=== PATIENT | female | born 1935 | race Caucasian/White ===

== ENCOUNTER 2016-09-14 09:20 | Day surgery (SDC) | payer MEDICARE, BC ==
[~2016-09-14 09:20] MED LIST: Lactated Ringers 1,000 ML IV SCH; Lidocaine 2% 5 ML SDV ONE; Propofol 200 MG/20 ML SDV ONE
--- NOTE | 2016-09-14 10:05 | PCM.PREANE ---
Preanesthetic Assessment - Anesthesia/Transfusion/Family Hx Anesthesia History: Prior Anesthesia Without Reaction Family History of Anesthesia Reaction: No Transfusion History: Prior Transfusion Without Reaction - Review of Systems General: No Symptoms Pulmonary: No Symptoms Cardiovascular: No Symptoms Gastrointestinal: No symptoms Neurological: No Symptoms Other: Reports: None - Physical Assessment NPO Status Date: 09/13/16 O2 Sat by Pulse Oximetry: 96 Respiratory Rate: 16 Vital Signs: Last Vital Signs Temp 36.4 C 09/14/16 09:25 Pulse 98 09/14/16 09:25 Resp 16 09/14/16 09:25 BP 139/61 09/14/16 09:25 Pulse Ox 96 09/14/16 09:25 Height: 1.57 m Weight: 67.132 kg Mental Status: Alert & Oriented x3 Airway Class: Mallampati = 2 Dentition: Reports: Normal Dentition Lungs: Clear to auscultation, Normal respiratory effort Cardiovascular: Regular Rate, Regular Rhythm - Lab Values: Laboratory Last Values POC Glucose 181 mg/dL (60-110) H 09/14/16 09:57 - Allergies Allergies/Adverse Reactions: Allergies Allergy/AdvReac Type Severity Reaction Status Date / Time No Known Allergies Allergy Verified 09/10/16 07:38 - Blood Blood Available: No - Anesthesia Plan Pre-Op Medication Ordered: None - Acknowledgements Anesthesia Type Planned: MAC Pt an Appropriate Candidate for the Planned Anesthesia: Yes Alternatives and Risks of Anesthesia Discussed w Pt/Guardian: Yes Pt/Guardian Understands and Agrees with Anesthesia Plan: Yes Additional Comments: scope for mild anemia and heme + stools, has receding chin PreAnesthesia Questionnaire HEENT History: Reports: None Cardiovascular History: Reports: High Cholesterol, Hypertension Gastrointestinal History: Reports: None, Other (See Below) Other Gastrointestinal History: hx gastric ulcer Genitourinary History: Reports: None 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 CARE ASSISTANT History: Reports: , Spontaneous Endocrine/Metabolic History: Reports: Diabetes, Type II Hematologic History: Reports: Blood Transfusion(s) - Past Surgical History Head Surgeries/Procedures: Reports: None HEENT Surgical History: Reports: Cataract Surgery GI Surgical History: Reports: Cholecystectomy Female Surgical History: Reports: Hysterectomy - SUBSTANCE USE Smoking Status *Q: Former Smoker Tobacco Use Within Last Twelve Months: No Recreational Drug Use History: No - HOME MEDS Home Medications: Home Meds Ascorbic Acid [Vitamin C] 1,000 mg PO DAILY 09/10/16 [History] Aspirin [[place]lett Aspirin] 81 mg PO DAILY 09/10/16 [History] Cholecalciferol (Vitamin D3) [Vitamin D3] 1,000 units PO DAILY 09/10/16 [History ] Cyanocobalamin (Vitamin B12) [Vitamin B12] 500 mcg PO DAILY 09/10/16 [History] Losartan Potassium 25 mg PO DAILY 09/10/16 [History] atorvaSTATin Calcium [Atorvastatin Calcium] 20 mg PO DAILY 09/10/16 [History] metFORMIN HCl [Metformin HCl] 500 mg PO BEDTIME 09/10/16 [History] - CURRENT (IN HOUSE) MEDS Current Meds: Current Medications Lactated Ringer's (Ringers, Lactated) 1,000 mls @ 125 mls/hr IV ASDIRECTED [facility] Last Admin: 09/14/16 09:35 Dose: 125 mls/hr Discontinued Medications Lidocaine (Xylocaine-Mpf 2%) Confirm Administered Dose 5 ml .ROUTE .STK-MED ONE Stop: 09/14/16 08:45 Propofol (Diprivan 20 Ml) Confirm Administered Dose 400 mg .ROUTE .STK-MED ONE Stop: 09/14/16 08:45
[2016-09-14] MEDS ORDERED: Propofol 200 MG/20 ML SDV ONE (12:08)
--- NOTE | 2016-09-14 13:03 | PCM.OPNOTE ---
- General Post-Op/Procedure Note Date of Surgery/Procedure: 09/14/16 Operative Procedure(s): colonoscopy w bx Findings: colon mass at 40cm with ink tattoo; [id number] Pre Op Diagnosis: guaiac positive stool Post-Op Diagnosis: colon mass Anesthesia Technique: Moderate sedation Primary Surgeon: Elieser El Pathology: bx of cecum because of prominence; bx of apple core lesion at 40 cm Complications: None Condition: Good Free Text/Narrative:: Intake & Output 09/13/16 09/14/16 09/14/16 22:59 06:59 14:59 Intake Total 900 Balance 900
[2016-09-14 13:24] VITALS: BP 118/63
--- NOTE | 2016-09-14 13:44 | PCM.POSTAN ---
POST ANESTHESIA ASSESSMENT - MENTAL STATUS Mental Status: alert, oriented - RESPIRATORY Respiratory Status: respiratory rate WNL, airway patent, O2 saturation stable - CARDIOVASCULAR CV Status: pulse rate WNL, blood pressure stable - GASTROINTESTINAL GI Status: no symptoms - POST OP HYDRATION Hydration Status: adequate & stable
--- NOTE | 2016-09-14 13:44 | PCM48HPAN ---
Post Anesthesia Note - EVALUATION WITHIN 48HRS OF ANESTHETIC Vital Signs in Normal Range: Yes Patient Participated in Evaluation: Yes Respiratory Function Stable: Yes Airway Patent: Yes Cardiovascular Function Stable: Yes Hydration Status Stable: Yes Pain Control Satisfactory: Yes Nausea and Vomiting Control Satisfactory: Yes Mental Status Recovered: Yes
--- NOTE | 2016-09-14 19:28 | OR ---
SURGEON: Elieser El MD DATE OF PROCEDURE: 09/14/2016 PREOPERATIVE DIAGNOSIS: . POSTOPERATIVE DIAGNOSIS: Colon mass. PROCEDURE PERFORMED: Colonoscopy with biopsy. COMPLICATIONS: None. FINDINGS: 1. The patient is easily sedated with TOWN ADMINISTRATOR and Diprivan. The patient is soundly snoring. 2. The patient's colon is rather tortuous requiring maneuver in order to get to the cecum and the bowel prep is average with moderate amount of liquid stool. No semi-formed stool. At about 40 cm when the scope come out just distal to the splenic flexure, there was an apple-core lesion, semi circumference, and necrosis and with a pretty classic looking of colon, tumor, and biopsy done and sent for pathology. The patient also has mild diverticulosis on the left colon. No signs or symptoms of diverticulitis. No other mass, polyp, growth, AV malformation, or inflammation stricture observed and the cecum indicated by ileocecal fold, one-to-one indentation, light immittance, appendix orifice. Mucosa examined upon scope pulling out. The patient also has internal and external hemorrhoids. The area of the mass was tattooed and the patient tolerated the procedure well and we will discuss about the management of the colon mass when the patient returns to the office. DESCRIPTION OF PROCEDURE: The patient was taken to the endoscopy room. A time out was called, patient identified, and procedure identified. Diprivan was then administrated. Patient went from awake to sleep, hearing doctor talking or door closing is normal. Perineum inspection and digital examination were then performed. A well- lubricated colonoscope was gently inserted through the rectum, advanced past the rectosigmoid junction, the descending colon, splenic flexure, transverse colon, hepatic flexure, ascending colon, arrived to the cecum. Cecum was identified as dictated in the finding. Then the scope was carefully withdrawn while attention was paid to the mucosal surface for any abnormality. Air will be sucked out during the scope withdrawal. At the rectum, retroflexed to examine any rectal diseases, fistula or hemorrhoids. During mucosal examination, an apple core mass was noted and biopsy and tattoo performed. Patient tolerated procedure well. There were no intraoperative complications, and Dr. El was present throughout the whole procedure. ANDRZEJ / ANGEL /[id number] KENYA
== END 2016-09-14 13:13 | disposition home or self-care (01) ==
LOC: MW.SDS 09:20
PROVIDERS: ATTEND Surgery
PROC: 0DBM8ZX Excision of Descending Colon, Via Natural or Artificial Opening Endoscopic, Diagnostic (ICD-10-PCS; principal; 2016-09-14)
PROC: 3E0H8GC Introduction of Other Therapeutic Substance into Lower GI, Via Natural or Artificial Opening Endoscopic (ICD-10-PCS; 2016-09-14)
DX: C18.6 Malignant neoplasm of descending colon (principal); K64.4 Residual hemorrhoidal skin tags; D64.9 Anemia, unspecified; K64.8 Other hemorrhoids; K57.30 Diverticulosis of large intestine without perforation or abscess without bleeding; E11.9 Type 2 diabetes mellitus without complications
CPT/HCPCS: 36415; 45380; 45381; 82378; 82962; 88305; J7120; 00810; J2704

== ENCOUNTER 2016-11-07 10:22 | Inpatient (IN) | payer MEDICARE, BC ==
[2016-11-07] MEDS ORDERED: Sodium Chloride 0.9% 2.5 ML Syringe FLUSH PRN (11:37)
[2016-11-07] MEDS ORDERED: Sodium Chloride 0.9% 10 ML Syringe FLUSH PRN (11:37)
[2016-11-07] MEDS: Lactated Ringers 1,000 ML IV SCH ×2 (11:56→23:27)
--- NOTE | 2016-11-07 12:00 | PCM.PREANE ---
Preanesthetic Assessment - Anesthesia/Transfusion/Family Hx Anesthesia History: Prior Anesthesia Reaction (Pt states that she had a ORTIZ after her previous transfusions. No obvious reaction is noted.) Transfusion History: Prior Transfusion Reaction Type of Transfusion Reactions: Reports: Other (see below) Other Type of Transfusion Reaction: Headache - Review of Systems General: Fatigue Pulmonary: No Symptoms Cardiovascular: No Symptoms Gastrointestinal: No Symptoms Neurological: No Symptoms Other: Reports: None - Physical Assessment Pulse: 84 O2 Sat by Pulse Oximetry: 100 (Room Air) Respiratory Rate: 16 Blood Pressure: 141/65 Temperature: 97.3 F Height: 5 ft 2 in Weight: 64.5 kg ASA Class: 2 Mental Status: Alert & Oriented x3 Airway Class: Mallampati = 3 Dentition: Reports: Normal Dentition Thyro-Mental Finger Breadths: 2 Mouth Opening Finger Breadths: 2 ROM/Head Extension: Limited/Partial Lungs: Clear to Auscultation, Normal Respiratory Effort Cardiovascular: Regular Rate, Regular Rhythm - Imaging/EKG Impressions: 11/07/16 - SR, Left anterior fascicular block, Abnormal R-wave progression 11/07/16 - CXR - Pending 10/12/16 - Echo - LVEF - 55-60%, Normal LV Systolic Function, Possible small area of basal inferior wall hypokinesia 10/14/16 - Stress Test - Denied chest pain, SOA; sinustachycardia without evidence of ischemia. 10/20/16 - Myocardial Perfusion Study - At rest, no evidence of reversible perfusion is noted. 09/24/16 - CT of ABD - Annular mid transverse mass with extraluminal extension into the mesentary, no distant metastatic disease is noted, Osteopenia. - Allergies Allergies/Adverse Reactions: Allergies Allergy/AdvReac Type Severity Reaction Status Date / Time No Known Allergies Allergy Verified 09/10/16 07:38 - Blood Blood Available: Yes Product(s) Available: None - Anesthesia Plan Free Text/Narrative:: Pt is interviewed by herself. She is very active and fully neurologically intact. She has had a pretty aggressive cardiac work-up for this surgery which has been relatively unremarkable. I spoke with her regarding GETA and the possible risks and complications including but not limited to: resp. failure, CVA, WI, Mechanical ventilation, and . The patient voices understanding of the risks. After reviewing her labs it was noted that she was anemic with Hgb - 8.4, I called and spoke with Dr El and he wished the patient to be transfused with a goal Hgb of 10 pre-op. We will transfuse one unit of PRBC at this time and re-evaluate later this evening. I started a second PIV 18g to her Rt hand for blood transfusion. The patient understands and wishes to proceed with transfusion at this time. 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 History: Reports: , Spontaneous Musculoskeletal History: Reports: None Neurological History: Reports: None Psychiatric History: Reports: None Endocrine/Metabolic History: Reports: Diabetes, Type II (Pt states she checks here BG at home and it runs "150's" for her) Hematologic History: Reports: Blood Transfusion(s) Immunologic History: Reports: None Oncologic (Cancer) History: Reports: Colon Dermatologic History: Reports: None - Infectious Disease History Infectious Disease History: Reports: None - Past Surgical History Head Surgeries/Procedures: Reports: None HEENT Surgical History: Reports: Cataract Surgery Respiratory Surgical History: Reports: None GI Surgical History: Reports: Cholecystectomy Female Surgical History: Reports: Hysterectomy Neurological Surgical History: Reports: None Musculoskeletal Surgical History: Reports: None - SUBSTANCE USE Smoking Status *Q: Former Smoker Tobacco Use Within Last Twelve Months: No Second Hand Smoke Exposure: No Recreational Drug Use History: No - HOME MEDS Home Medications: Home Meds Ascorbic Acid [Vitamin C] 1,000 mg PO DAILY 09/10/16 [History] Cholecalciferol (Vitamin D3) [Vitamin D3] 1,000 units PO DAILY 09/10/16 [History ] Cyanocobalamin (Vitamin B12) [Vitamin B12] 500 mcg PO DAILY 09/10/16 [History] Losartan Potassium 25 mg PO DAILY 09/10/16 [History] atorvaSTATin Calcium [Atorvastatin Calcium] 20 mg PO DAILY 09/10/16 [History] metFORMIN HCl [Metformin HCl] 500 mg PO BEDTIME 09/10/16 [History] - CURRENT (IN HOUSE) MEDS Current Meds: Current Medications Lactated Ringer's (Ringers, Lactated) 1,000 mls @ 125 mls/hr IV ASDIRECTED [facility] Cefoxitin Sodium 2 gm/ Premix 50 mls @ 100 mls/hr IV ONETIME ONE Stop: 11/08/16 05:29 Sodium Chloride (Saline Flush) 10 ml FLUSH ASDIRECTED PRN PRN Reason: Keep Vein Open Sodium Chloride (Saline Flush) 2.5 ml FLUSH ASDIRECTED PRN PRN Reason: Keep Vein Open
[2016-11-07 12:23] LABS: CHLORIDE,CL 106 mmol/L (98-110); SODIUM,NA 142 mmol/L (136-146)
[2016-11-07] MEDS ORDERED: Erythromycin Ethylsuccinate Susp 200 MG/5 ML 100 ML Bottle PO ONE ×3 (12:29→20:00)
[2016-11-07] MEDS ORDERED: Lidocaine 2% 5 ML SDV ONE (12:31)
[2016-11-07] MEDS ORDERED: Polyethylene Glycol/Electrolytes 4,000 ML Bottle PO ONE (12:31)
[2016-11-08] MEDS ORDERED: cefOXitin 2 GM in Premix Bag 1 BAG IV ONE (05:00)
[2016-11-08 06:44] LABS: CHLORIDE,CL 107 mmol/L (98-110); SODIUM,NA 142 mmol/L (136-146)
[2016-11-08] MEDS ORDERED: Lidocaine 2% 5 ML SDV ONE (07:18)
[2016-11-08] MEDS ORDERED: Midazolam 1 MG/ML 2 ML SDV ONE (07:18)
[2016-11-08] MEDS ORDERED: Rocuronium 10 MG/ML 10 ML Syringe ONE (07:18)
[2016-11-08] MEDS ORDERED: Propofol 200 MG/20 ML SDV ONE (07:18)
[2016-11-08] MEDS ORDERED: fentaNYL 100 MCG/2 ML SDV ONE ×2 (07:18→10:50)
[2016-11-08] MEDS ORDERED: Ondansetron 4 MG/2 ML SDV ONE (07:18)
[2016-11-08] MEDS ORDERED: Phenylephrine 1% 10 MG/ML SDV ONE (07:19)
[2016-11-08] MEDS ORDERED: HYDROmorphone 2 MG/ML Syringe ONE (07:19)
[2016-11-08] MEDS ORDERED: Bupivacaine 0.5% 30 ML SDV ONE (07:39)
[2016-11-08] MEDS ORDERED: Bupivacaine 0.5% 10 ML SDV ONE (07:40)
[2016-11-08] MEDS ORDERED: ceFAZolin 1 GM Vial ONE (09:31)
[2016-11-08] MEDS ORDERED: Morphine PF 10 MG/10 ML SDV ONE (09:55)
[2016-11-08] MEDS ORDERED: Neostigmine Methylsulfate 1 MG/ML 5 ML Syringe ONE (10:33)
[2016-11-08] MEDS ORDERED: Morphine PF 30 MG/30 ML PCA Vial IV PRN (11:39)
[2016-11-08] MEDS ORDERED: cefOXitin 1 GM in Premix Bag 1 BAG IV SCH (11:45)
[2016-11-08] MEDS: fentaNYL 100 MCG/2 ML SDV IVPUSH PRN ×2 (11:54→12:20)
--- NOTE | 2016-11-08 11:54 | PCM.OPNOTE ---
- General Post-Op/Procedure Note Date of Surgery/Procedure: 11/08/16 Operative Procedure(s): extended r hemicolectomy, peritoneal biopsy, yelitza Findings: extensive adherence from prior surgery, and some portion of ileum is as big as colon suggested a chronic situation; peritoneal deposit bx, frosen session, mets ca; distal margin is 6 cm before amputation; and cancer is gross seen on serosal surface, but no gross perforation; [id number] Pre Op Diagnosis: colon ca Post-Op Diagnosis: Same Anesthesia Technique: General ET Tube Primary Surgeon: Elieser El Pharmacy Operations Coordinator: Anson Mirza Pathology: sent Complications: None Condition: Good Free Text/Narrative:: Intake & Output 11/07/16 11/08/16 11/08/16 22:59 06:59 14:59 Intake Total 3363 3300 304 Output Total 1350 500 Balance 2012 2800 304
--- NOTE | 2016-11-08 12:01 | PCM.POSTAN ---
POST ANESTHESIA ASSESSMENT - MENTAL STATUS Mental Status: Alert, Oriented - RESPIRATORY Respiratory Status: Respiratory Rate WNL, Airway Patent, O2 Saturation Stable, Supplemental Oxygen - CARDIOVASCULAR CV Status: Pulse Rate WNL, Blood Pressure Stable - GASTROINTESTINAL GI Status: No Symptoms - PAIN Pain Score: 3 ("sore"; receiving fentanyl now) - POST OP HYDRATION Hydration Status: Adequate & Stable - OBSERVATIONS Free Text/Narrative:: Pt awake and appropriate. Minimal pain and no nausea at this time. VSS.
--- NOTE | 2016-11-08 13:10 | CR ---
EXAM DATE: 11/07/16 PATIENT'S AGE: 81 Patient: MEGHANN MOORE Facility: [place], [place] Site . Site : [id number] Study: XRay Chest [id number]/13/2017 12:21:06 PM Ordering Physician: Sienna Mon Final Report: INDICATION: Pre-operative Assessment TECHNIQUE: Chest 1 view. COMPARISON: None FINDINGS: Cardiovascular and mediastinum: Heart size and vasculature are normal in caliber and appearance. Mediastinum is within normal limits. Lungs and pleural space: Lungs are clear. No sign of infiltrate or mass. No sign of pleural effusion. No pneumothorax. Bones and soft tissues: No significant findings. IMPRESSION: Unremarkable chest. Dictated by: Anirudh Weldon MD @ 11/07/2016 12:39:39 (Electronic Signature) Report Signed by Proxy. GUTH[facility] MEDICAL CENTERCheryl
[2016-11-08] MEDS: Lactated Ringers 1,000 ML IV SCH ×3 (13:41→22:35)
[2016-11-08] MEDS: cefOXitin 1 GM in Premix Bag 1 BAG IV SCH ×2 (13:48→19:20)
[2016-11-08] MEDS: Ondansetron 4 MG/2 ML SDV IVPUSH PRN (17:06)
[2016-11-09] MEDS: cefOXitin 1 GM in Premix Bag 1 BAG IV SCH ×4 (00:44→19:49)
[2016-11-09 05:14] LABS: CHLORIDE,CL 98 mmol/L (98-110); SODIUM,NA 134 mmol/L (136-146)
[2016-11-09] MEDS: Ondansetron 4 MG/2 ML SDV IVPUSH PRN (05:41)
[2016-11-09] MEDS: Lactated Ringers 1,000 ML IV SCH ×2 (06:30→15:19)
--- NOTE | 2016-11-09 07:52 | PCM48HPAN ---
Post Anesthesia Note - EVALUATION WITHIN 48HRS OF ANESTHETIC Vital Signs in Normal Range: Yes Patient Participated in Evaluation: Yes Respiratory Function Stable: Yes Airway Patent: Yes Cardiovascular Function Stable: Yes Hydration Status Stable: Yes Pain Control Satisfactory: Yes Nausea and Vomiting Control Satisfactory: Yes Mental Status Recovered: Yes - COMMENTS/OBSERVATIONS Free Text/Narrative:: Pt awake and alert this AM. States that she slept well last night. She does state that she still has moderate pain and is using her BOTTLER. VSS. No apparent anesthesia complications.
[2016-11-09] MEDS: Pantoprazole 40 MG in Sodium Chloride 0.9% 10 ML IVPUSH SCH (09:32)
--- NOTE | 2016-11-09 11:27 | OR ---
SURGEON: Elieser El MD DATE OF PROCEDURE: 11/08/2016 JUNIOR ENGINEER: Dr. Mirza. PREOPERATIVE DIAGNOSIS: Colon cancer. POSTOPERATIVE DIAGNOSIS: Colon cancer. PROCEDURE PERFORMED: 1. Extended right hemicolectomy. 2. Lysis of adhesions. 3. Peritoneal biopsy. FINDINGS: 1. Very extensive adherence from prior surgery. The small bowel was attached to the cancer, attached to the peritoneum, and attached to the pelvis. Required tremendous amount of effort to take down adherence, and there was no enterotomy during the takedown of adhesions. 2. Some portion of the ileum was as big as the colon, suggesting this has been a chronic situation. 3. Peritoneal biopsy was positive for metastatic cancer. 4. The patient required 2 units of transfusion before surgery, as the patient's H and H was down to 8 upon admission. SPECIMENS: Gross in the operating room and distal margin before amputation was noted to be 6 cm and cancer grossly seen on serosal surface, but no gross perforation. PROCEDURE IN DETAIL: The patient was taken to the operating room and placed in a supine position. Upon induction of general endotracheal anesthesia, the patient's abdomen was prepped and draped in a sterile fashion. Prior to surgery, the patient was noted to be anemic to 8 and getting 2 units blood transfusion prior to surgery. A time-out was then called. The patient identified, procedure identified, and antibiotic identified, procedure then started. After assessment of appropriate landmarks, a midline incision from epigastrium beveled to the left of the umbilicus down to the upper pelvis was made, and this was carefully taken down and the peritoneal cavity was entered in a standard fashion. Upon gaining entrance into the peritoneal cavity, it was noted the patient had severe adherence from prior surgery. Small bowel was making a U-turn, adhesing itself like a bouquet of andrews and adhered to the peritoneal cavity, adhered to the cancer, and adhered to the pelvis, so I decided to take down the adherence before anything could be performed. The cancer was noted and was tattooed, and the cancer was noted to be involved with the serosal surface, although no gross perforation was observed, and a small peritoneal deposit about a size of 1 mm was biopsied and noted to have metastatic cancer. After taking down adherence, which took an hour from the surgery, the ascending colon was mobilized from the white line of Toldt, and then at the terminal ileum, the appendix was not noticed, probably has been gone. The terminal ileum 6 cm was amputated from the ileocecal valve. In the distal margin, the cancer was felt and also was tattooed and measured 6 cm from the cancer and the tattoo grossly measured was amputated over there, and then the mesentery was amputated by the use of Harmonic, and big vessels encountered were amputated and tied off with two times of 0 silk. It was decided to do a [id number] anastomosis with functional end- to-end using RANDY-75 and TA-50. Upon finishing, I was using 0 silk to give the anastomosis a secondary closure, and after repair of the mesenteric hole, the anastomosis was also buttressed with another mesentery. Upon finishing, I felt the general donut with 2 fingers, and there were also Crutch stitches in the anastomosis. All the bowel laid back to the peritoneal cavity and followed with 2 L of warm irrigation, and then the abdomen was closed with double-stranded #1 PDS and with skin dontae to approximate the skin and followed by appropriate dressing. The patient was then awakened, extubated, and transferred to recovery in a hemodynamically stable condition. The patient tolerated the procedure well. There were no intraoperative complications. Dr. Mirza was present for the whole procedure. During the exploration, the liver was palpated and was grossly normal. An NG tube was in the good position. As always, thank you for the kind referral. ANDRZEJ / ANGEL /[id number]
[2016-11-09] MEDS: Morphine PF 30 MG/30 ML PCA Vial IV PRN (12:38)
--- NOTE | 2016-11-09 14:26 | PCM.SURGPN ---
- General Info Date of Service: 11/09/16 POD#: 1 Post-Op Diagnosis: colon ca w mets Functional Status: Reports: Pain Controlled - Review of Systems General: Reports: No Symptoms Pulmonary: Reports: No Symptoms Cardiovascular: Reports: No Symptoms Gastrointestinal: Reports: No Symptoms (no flatus) - Patient Data Vitals - Most Recent: Last Vital Signs Temp 99 F 11/09/16 08:00 Pulse 90 11/08/16 12:35 Resp 12 11/09/16 13:00 BP 126/53 L 11/09/16 13:00 Pulse Ox 92 L 11/09/16 13:00 Weight - Most Recent: 144 lb 9.972 oz I&O - Last 24 Hours: Intake & Output 11/08/16 11/09/16 11/09/16 22:59 06:59 14:59 Intake Total 1050 1050 50 Output Total 1500 1150 Balance -450 -100 50 Lab Results Last 24 Hrs: Laboratory Results - last 24 hr 11/09/16 11/09/16 Range/Units 04:32 04:32 WBC 14.40 H (4.0-11.0) K/uL RBC 4.79 (4.30-5.90) M/uL Hgb 10.2 L (12.0-16.0) g/dL Hct 33.7 L (36.0-46.0) % MCV 70.4 L (80.0-98.0) fL MCH 21.3 L (27.0-32.0) pg MCHC 30.3 L (31.0-37.0) g/dL RDW Std Deviation 48.9 (28.0-62.0) fl RDW Coeff of Tiara 19 H (11.0-15.0) % Plt Count 282 (150-400) K/uL MPV 9.00 (7.40-12.00) fL Neut % (Auto) 79.8 (48.0-80.0) % Lymph % (Auto) 13.1 L (16.0-40.0) % [place] % (Auto) 7.0 (0.0-15.0) % Eos % (Auto) 0.0 (0.0-7.0) % Baso % (Auto) 0.1 (0.0-1.5) % Neut # (Auto) 11.5 H (1.4-5.7) K/uL Lymph # (Auto) 1.9 (0.6-2.4) K/uL [place] # (Auto) 1.0 H (0.0-0.8) K/uL Eos # (Auto) 0.0 (0.0-0.7) K/uL Baso # (Auto) 0.0 (0.0-0.1) K/uL Nucleated RBC % 0.0 /100WBC Nucleated RBCs # 0 K/uL Sodium 134 L (136-146) mmol/L Potassium 3.7 (3.5-5.1) mmol/L Chloride 98 (98-110) mmol/L Carbon Dioxide 25 (21-31) mmol/L BUN 6 (6.0-23.0) mg/dL Creatinine 0.7 (0.6-1.5) mg/dL Est Cr Clr Drug Dosing 47.74 mL/min Estimated GFR (MDRD) > 60.0 ml/min Glucose 213 H (60-110) mg/dL Calcium 8.3 L (8.8-10.8) mg/dL Total Bilirubin 1.0 (0.1-1.5) mg/dL AST 26 (5-40) IU/L ALT 28 (8-54) IU/L Alkaline Phosphatase 59 (40-150) Total Protein 6.0 (6.0-8.0) g/dL Albumin 3.4 (3.4-4.8) g/dL Globulin 2.6 (2.0-3.5) g/dL Albumin/Globulin Ratio 1.3 (1.3-2.8) Med Orders - Current: Current Medications Fentanyl (Sublimaze) 50 mcg IVPUSH .Q5MIN PRN PRN Reason: Pain Stop: 11/12/16 09:14 Last Admin: 11/08/16 12:20 Dose: 50 mcg Lactated Ringer's (Ringers, Lactated) 1,000 mls @ 125 mls/hr IV ASDIRECTED [facility] Last Admin: 11/09/16 06:30 Dose: 125 mls/hr Pantoprazole Sodium 40 mg/ (Sodium Chloride) 10 mls @ 300 mls/hr IVPUSH DAILY [facility] Last Admin: 11/09/16 09:32 Dose: 300 mls/hr Cefoxitin Sodium 1 gm/ Premix 50 mls @ 100 mls/hr IV Q6H [facility] Last Admin: 11/09/16 12:27 Dose: 100 mls/hr Morphine Sulfate (Morphine Services Delivery Driver 30 Mg In 30 Ml) 0 mg IV ASDIRECTED PRN; Protocol PRN Reason: Pain (severe 7-10) Last Admin: 11/09/16 12:38 Dose: 30 mg Ondansetron HCl (Zofran) 4 mg IVPUSH Q8H PRN PRN Reason: Nausea/Vomiting Last Admin: 11/09/16 05:41 Dose: 4 mg Sodium Chloride (Saline Flush) 10 ml FLUSH ASDIRECTED PRN PRN Reason: Keep Vein Open Sodium Chloride (Saline Flush) 2.5 ml FLUSH ASDIRECTED PRN PRN Reason: Keep Vein Open Discontinued Medications Bupivacaine HCl (Marcaine 0.5%) Confirm Administered Dose 90 ml .ROUTE .STK-MED ONE Stop: 11/08/16 07:40 Bupivacaine HCl (Sensorcaine-Mpf 0.5%) Confirm Administered Dose 20 ml .ROUTE .STK-MED ONE Stop: 11/08/16 07:41 Cefazolin Sodium (Ancef) Confirm Administered Dose 1 gm .ROUTE .STK-MED ONE Stop: 11/08/16 09:32 Erythromycin Ethylsuccinate (Eryped 200) 1,000 mg PO ONETIME ONE Stop: 11/07/16 12:30 Last Admin: 11/07/16 13:11 Dose: 25 ml Erythromycin Ethylsuccinate (Eryped 200) 1,000 mg PO ONETIME ONE Stop: 11/07/16 16:01 Last Admin: 11/07/16 16:22 Dose: 25 ml Erythromycin Ethylsuccinate (Eryped 200) 1,000 mg PO ONETIME ONE Stop: 11/07/16 20:01 Last Admin: 11/07/16 20:05 Dose: 1,000 mg Fentanyl (Sublimaze) Confirm Administered Dose 100 mcg .ROUTE .STK-MED ONE Stop: 11/08/16 07:19 Fentanyl (Sublimaze) Confirm Administered Dose 100 mcg .ROUTE .STK-MED ONE Stop: 11/08/16 10:51 Glycopyrrolate () Confirm Administered Dose 1 mg .ROUTE .STK-MED ONE Stop: 11/08/16 10:34 Hydromorphone HCl (Dilaudid) Confirm Administered Dose 2 mg .ROUTE .STK-MED ONE Stop: 11/08/16 07:20 Lactated Ringer's (Ringers, Lactated) 1,000 mls @ 125 mls/hr IV ASDIRECTED [facility] Last Infusion: 11/08/16 07:27 Dose: Infused Cefoxitin Sodium 2 gm/ Premix 50 mls @ 100 mls/hr IV ONETIME ONE Stop: 11/08/16 05:29 Last Admin: 11/08/16 06:28 Dose: 100 mls/hr Cefoxitin Sodium 1 gm/ Premix 50 mls @ 100 mls/hr IV Q6H [facility] Last Admin: 11/08/16 14:11 Dose: Not Given Lidocaine (Xylocaine-Mpf 2%) Confirm Administered Dose 5 ml .ROUTE .STK-MED ONE Stop: 11/07/16 12:32 Last Admin: 11/07/16 14:47 Dose: Not Given Lidocaine (Xylocaine-Mpf 2%) Confirm Administered Dose 5 ml .ROUTE .STK-MED ONE Stop: 11/08/16 07:19 Midazolam HCl (Versed 1 Mg/Ml) Confirm Administered Dose 2 mg .ROUTE .STK-MED ONE Stop: 11/08/16 07:19 Morphine Sulfate (Duramorph Pf) Confirm Administered Dose 10 mg .ROUTE .STK-MED ONE Stop: 11/08/16 09:56 Morphine Sulfate (Morphine Services Delivery Driver 30 Mg In 30 Ml) 0 mg IV ASDIRECTED PRN; Protocol PRN Reason: Pain (severe 7-10) Last Admin: 11/08/16 12:16 Dose: 30 mg Neomycin Sulfate (Neomycin Sulfate) 1,000 mg PO ONETIME ONE Stop: 11/07/16 12:31 Last Admin: 11/07/16 13:11 Dose: 1,000 mg Neomycin Sulfate (Neomycin Sulfate) 1,000 mg PO ONETIME ONE Stop: 11/07/16 16:01 Last Admin: 11/07/16 16:22 Dose: 1,000 mg Neomycin Sulfate (Neomycin Sulfate) 1,000 mg PO ONETIME ONE Stop: 11/07/16 20:01 Last Admin: 11/07/16 20:03 Dose: 1,000 mg Neostigmine Methylsulfate (Neostigmine) Confirm Administered Dose 5 mg .ROUTE .STK-MED ONE Stop: 11/08/16 10:34 Ondansetron HCl (Zofran) Confirm Administered Dose 4 mg .ROUTE .STK-MED ONE Stop: 11/08/16 07:19 Phenylephrine HCl (Aman-Synephrine) Confirm Administered Dose 10 mg .ROUTE .STK- MED ONE Stop: 11/08/16 07:20 Polyethylene Glycol/Electrolytes (Golytely) 4,000 ml PO ONETIME ONE Stop: 11/07/16 12:32 Last Admin: 11/07/16 13:12 Dose: 4,000 ml Propofol (Diprivan 20 Ml) Confirm Administered Dose 200 mg .ROUTE .STK-MED ONE Stop: 11/08/16 07:19 Rocuronium [place] (Zemuron) Confirm Administered Dose 100 mg .ROUTE .STK-MED ONE Stop: 11/08/16 07:19 - Exam Wound/Incisions: Dressing Dry and Intact General: Alert, Oriented Neck: Supple Cardiovascular: Regular Rate GI/Abdominal Exam: Soft (wound cdi) - Problem List Review Problem List Initiated/Reviewed/Updated: Yes - My Orders Last 24 Hours: Active Orders 24 hr Category Date Time Status Communication Order [RC] ROUTINE Care 11/08/16 19:05 Active Morphine PF [Morphine INTERNATIONAL EDITORIAL PRODUCER 30 MG in 30 ML] Med 11/08/16 19:01 Active See Protocol IV ASDIRECTED PRN Pantoprazole [ProTONIX IV] 40 mg Med 11/09/16 09:00 Active Sodium Chloride 0.9% [Normal Saline] 10 ml IVPUSH DAILY Medication Orders Fentanyl (Sublimaze) 50 mcg IVPUSH .Q5MIN PRN PRN Reason: Pain Stop: 11/12/16 09:14 Last Admin: 11/08/16 12:20 Dose: 50 mcg Admin: 11/08/16 11:54 Dose: 50 mcg Lactated Ringer's (Ringers, Lactated) 1,000 mls @ 125 mls/hr IV ASDIRECTED [facility] Last Admin: 11/09/16 06:30 Dose: 125 mls/hr Infusion: 11/09/16 06:30 Dose: 125 mls/hr Admin: 11/08/16 22:35 Dose: 125 mls/hr Infusion: 11/08/16 21:50 Dose: 125 mls/hr Admin: 11/08/16 13:50 Dose: 125 mls/hr Pantoprazole Sodium 40 mg/ (Sodium Chloride) 10 mls @ 300 mls/hr IVPUSH DAILY [facility] Last Admin: 11/09/16 09:32 Dose: 300 mls/hr Cefoxitin Sodium 1 gm/ Premix 50 mls @ 100 mls/hr IV Q6H [facility] Last Admin: 11/09/16 12:27 Dose: 100 mls/hr Infusion: 11/09/16 07:00 Dose: 100 mls/hr Admin: 11/09/16 06:30 Dose: 100 mls/hr Infusion: 11/09/16 01:14 Dose: 100 mls/hr Admin: 11/09/16 00:44 Dose: 100 mls/hr Infusion: 11/08/16 19:50 Dose: 100 mls/hr Admin: 11/08/16 19:20 Dose: 100 mls/hr Infusion: 11/08/16 14:18 Dose: 100 mls/hr Admin: 11/08/16 13:48 Dose: 100 mls/hr Morphine Sulfate (Morphine Services Delivery Driver 30 Mg In 30 Ml) 0 mg IV ASDIRECTED PRN; Protocol PRN Reason: Pain (severe 7-10) Last Admin: 11/09/16 12:38 Dose: 30 mg Ondansetron HCl (Zofran) 4 mg IVPUSH Q8H PRN PRN Reason: Nausea/Vomiting Last Admin: 11/09/16 05:41 Dose: 4 mg Admin: 11/08/16 17:06 Dose: 4 mg Sodium Chloride (Saline Flush) 10 ml FLUSH ASDIRECTED PRN PRN Reason: Keep Vein Open Sodium Chloride (Saline Flush) 2.5 ml FLUSH ASDIRECTED PRN PRN Reason: Keep Vein Open - Assessment Assessment (Free Text/Narrative):: pod#1 from extended r hemicolectomy for colon ca w mets; pain is in good control , urine output 2+L in 1st day; sit up in chair; asked a lot of important qs; denid n/v; avss, ngt 300cc; dc snow, encourage ambulation; transfer to floor; decrease ivf to 100/hr, decrease metal off bearer dose; lovenox may be tomorrow, severe bleeding risk; path report pending; await path report - Plan Plan (Free Text/Narrative):: pod#1 from extended r hemicolectomy for colon ca w mets; pain is in good control , urine output 2+L in 1st day; sit up in chair; asked a lot of important qs; denid n/v; avss, ngt 300cc; dc snow, encourage ambulation; transfer to floor; decrease ivf to 100/hr, decrease metal off bearer dose; lovenox may be tomorrow, severe bleeding risk; path report pending; await path report
[2016-11-10] MEDS: Lactated Ringers 1,000 ML IV SCH ×2 (01:22→13:11)
[2016-11-10] MEDS: cefOXitin 1 GM in Premix Bag 1 BAG IV SCH ×4 (01:23→18:29)
[2016-11-10 05:19] LABS: CHLORIDE,CL 100 mmol/L (98-110); SODIUM,NA 135 mmol/L (136-146)
[2016-11-10] MEDS: Pantoprazole 40 MG in Sodium Chloride 0.9% 10 ML IVPUSH SCH (08:07)
--- NOTE | 2016-11-10 16:40 | PCM.SURGPN ---
- General Info Date of Service: 11/10/16 POD#: 2 Post-Op Diagnosis: colon ca Functional Status: Reports: Pain Controlled - Review of Systems General: Reports: No Symptoms Pulmonary: Reports: No Symptoms Cardiovascular: Reports: No Symptoms (no flatus, snow out, void; ngt out, chewing gums) - Patient Data Vitals - Most Recent: Last Vital Signs Temp 99.2 F 11/10/16 15:46 Pulse 87 11/10/16 15:46 Resp 20 11/10/16 15:46 BP 153/65 H 11/10/16 15:46 Pulse Ox 91 L 11/10/16 15:46 Weight - Most Recent: 143 lb 4.807 oz I&O - Last 24 Hours: Intake & Output 11/10/16 11/10/16 11/10/16 06:59 14:59 22:59 Intake Total 1050 Output Total 1610 800 Balance -560 -800 Lab Results Last 24 Hrs: Laboratory Results - last 24 hr 11/10/16 11/10/16 Range/Units 04:40 04:40 WBC 11.72 H (4.0-11.0) K/uL RBC 4.46 (4.30-5.90) M/uL Hgb 9.6 L (12.0-16.0) g/dL Hct 31.6 L (36.0-46.0) % MCV 70.9 L (80.0-98.0) fL MCH 21.5 L (27.0-32.0) pg MCHC 30.4 L (31.0-37.0) g/dL RDW Std Deviation 50.3 (28.0-62.0) fl RDW Coeff of Tiara 20 H (11.0-15.0) % Plt Count 288 (150-400) K/uL MPV 9.30 (7.40-12.00) fL Neut % (Auto) 78.6 (48.0-80.0) % Lymph % (Auto) 13.9 L (16.0-40.0) % [place] % (Auto) 7.4 (0.0-15.0) % Eos % (Auto) 0.0 (0.0-7.0) % Baso % (Auto) 0.1 (0.0-1.5) % Neut # (Auto) 9.2 H (1.4-5.7) K/uL Lymph # (Auto) 1.6 (0.6-2.4) K/uL [place] # (Auto) 0.9 H (0.0-0.8) K/uL Eos # (Auto) 0.0 (0.0-0.7) K/uL Baso # (Auto) 0.0 (0.0-0.1) K/uL Sodium 135 L (136-146) mmol/L Potassium 3.6 (3.5-5.1) mmol/L Chloride 100 (98-110) mmol/L Carbon Dioxide 28 (21-31) mmol/L BUN 7 (6.0-23.0) mg/dL Creatinine 0.6 (0.6-1.5) mg/dL Est Cr Clr Drug Dosing 55.70 mL/min Estimated GFR (MDRD) > 60.0 ml/min Glucose 176 H (60-110) mg/dL Calcium 8.4 L (8.8-10.8) mg/dL Med Orders - Current: Current Medications Fentanyl (Sublimaze) 50 mcg IVPUSH .Q5MIN PRN PRN Reason: Pain Stop: 11/12/16 09:14 Last Admin: 11/08/16 12:20 Dose: 50 mcg Pantoprazole Sodium 40 mg/ (Sodium Chloride) 10 mls @ 300 mls/hr IVPUSH DAILY [facility] Last Admin: 11/10/16 08:07 Dose: 300 mls/hr Cefoxitin Sodium 1 gm/ Premix 50 mls @ 100 mls/hr IV Q6H [facility] Last Admin: 11/10/16 13:05 Dose: 100 mls/hr Lactated Ringer's (Ringers, Lactated) 1,000 mls @ 75 mls/hr IV ASDIRECTED [facility] Last Admin: 11/10/16 13:11 Dose: 75 mls/hr Morphine Sulfate (Morphine Data Integration Architect 30 Mg In 30 Ml) 0 mg IV ASDIRECTED PRN; Protocol PRN Reason: Pain (severe 7-10) Last Admin: 11/09/16 12:38 Dose: 30 mg Ondansetron HCl (Zofran) 4 mg IVPUSH Q8H PRN PRN Reason: Nausea/Vomiting Last Admin: 11/09/16 05:41 Dose: 4 mg Sodium Chloride (Saline Flush) 10 ml FLUSH ASDIRECTED PRN PRN Reason: Keep Vein Open Sodium Chloride (Saline Flush) 2.5 ml FLUSH ASDIRECTED PRN PRN Reason: Keep Vein Open Discontinued Medications Bupivacaine HCl (Marcaine 0.5%) Confirm Administered Dose 90 ml .ROUTE .STK-MED ONE Stop: 11/08/16 07:40 Bupivacaine HCl (Sensorcaine-Mpf 0.5%) Confirm Administered Dose 20 ml .ROUTE .STK-MED ONE Stop: 11/08/16 07:41 Cefazolin Sodium (Ancef) Confirm Administered Dose 1 gm .ROUTE .STK-MED ONE Stop: 11/08/16 09:32 Erythromycin Ethylsuccinate (Eryped 200) 1,000 mg PO ONETIME ONE Stop: 11/07/16 12:30 Last Admin: 11/07/16 13:11 Dose: 25 ml Erythromycin Ethylsuccinate (Eryped 200) 1,000 mg PO ONETIME ONE Stop: 11/07/16 16:01 Last Admin: 11/07/16 16:22 Dose: 25 ml Erythromycin Ethylsuccinate (Eryped 200) 1,000 mg PO ONETIME ONE Stop: 11/07/16 20:01 Last Admin: 11/07/16 20:05 Dose: 1,000 mg Fentanyl (Sublimaze) Confirm Administered Dose 100 mcg .ROUTE .STK-MED ONE Stop: 11/08/16 07:19 Fentanyl (Sublimaze) Confirm Administered Dose 100 mcg .ROUTE .STK-MED ONE Stop: 11/08/16 10:51 Glycopyrrolate () Confirm Administered Dose 1 mg .ROUTE .STK-MED ONE Stop: 11/08/16 10:34 Hydromorphone HCl (Dilaudid) Confirm Administered Dose 2 mg .ROUTE .STK-MED ONE Stop: 11/08/16 07:20 Lactated Ringer's (Ringers, Lactated) 1,000 mls @ 125 mls/hr IV ASDIRECTED [facility] Last Infusion: 11/08/16 07:27 Dose: Infused Cefoxitin Sodium 2 gm/ Premix 50 mls @ 100 mls/hr IV ONETIME ONE Stop: 11/08/16 05:29 Last Admin: 11/08/16 06:28 Dose: 100 mls/hr Lactated Ringer's (Ringers, Lactated) 1,000 mls @ 100 mls/hr IV ASDIRECTED [facility] Last Admin: 11/10/16 01:22 Dose: 100 mls/hr Cefoxitin Sodium 1 gm/ Premix 50 mls @ 100 mls/hr IV Q6H [facility] Last Admin: 11/08/16 14:11 Dose: Not Given Lidocaine (Xylocaine-Mpf 2%) Confirm Administered Dose 5 ml .ROUTE .STK-MED ONE Stop: 11/07/16 12:32 Last Admin: 11/07/16 14:47 Dose: Not Given Lidocaine (Xylocaine-Mpf 2%) Confirm Administered Dose 5 ml .ROUTE .STK-MED ONE Stop: 11/08/16 07:19 Midazolam HCl (Versed 1 Mg/Ml) Confirm Administered Dose 2 mg .ROUTE .STK-MED ONE Stop: 11/08/16 07:19 Morphine Sulfate (Duramorph Pf) Confirm Administered Dose 10 mg .ROUTE .STK-MED ONE Stop: 11/08/16 09:56 Morphine Sulfate (Morphine Data Integration Architect 30 Mg In 30 Ml) 0 mg IV ASDIRECTED PRN; Protocol PRN Reason: Pain (severe 7-10) Last Admin: 11/08/16 12:16 Dose: 30 mg Neomycin Sulfate (Neomycin Sulfate) 1,000 mg PO ONETIME ONE Stop: 11/07/16 12:31 Last Admin: 11/07/16 13:11 Dose: 1,000 mg Neomycin Sulfate (Neomycin Sulfate) 1,000 mg PO ONETIME ONE Stop: 11/07/16 16:01 Last Admin: 11/07/16 16:22 Dose: 1,000 mg Neomycin Sulfate (Neomycin Sulfate) 1,000 mg PO ONETIME ONE Stop: 11/07/16 20:01 Last Admin: 11/07/16 20:03 Dose: 1,000 mg Neostigmine Methylsulfate (Neostigmine) Confirm Administered Dose 5 mg .ROUTE .STK-MED ONE Stop: 11/08/16 10:34 Ondansetron HCl (Zofran) Confirm Administered Dose 4 mg .ROUTE .STK-MED ONE Stop: 11/08/16 07:19 Phenylephrine HCl (Aman-Synephrine) Confirm Administered Dose 10 mg .ROUTE .STK- MED ONE Stop: 11/08/16 07:20 Polyethylene Glycol/Electrolytes (Golytely) 4,000 ml PO ONETIME ONE Stop: 11/07/16 12:32 Last Admin: 11/07/16 13:12 Dose: 4,000 ml Propofol (Diprivan 20 Ml) Confirm Administered Dose 200 mg .ROUTE .STK-MED ONE Stop: 11/08/16 07:19 Rocuronium [place] (Zemuron) Confirm Administered Dose 100 mg .ROUTE .STK-MED ONE Stop: 11/08/16 07:19 - Exam Wound/Incisions: Dressing Dry and Intact (wound drsg cdi; abd soft) - Problem List Review Problem List Initiated/Reviewed/Updated: Yes - My Orders Last 24 Hours: Active Orders 24 hr Category Date Time Status Communication Order [RC] DAILY Care 11/10/16 09:00 Active Lactated Ringers [Ringers, Lactated] 1,000 ml Med 11/10/16 10:25 Active IV ASDIRECTED Nasogastric Orogastric Tube Removal [OM.PC] Routine Oth 11/10/16 09:00 Ordered Medication Orders Fentanyl (Sublimaze) 50 mcg IVPUSH .Q5MIN PRN PRN Reason: Pain Stop: 11/12/16 09:14 Last Admin: 11/08/16 12:20 Dose: 50 mcg Admin: 11/08/16 11:54 Dose: 50 mcg Pantoprazole Sodium 40 mg/ (Sodium Chloride) 10 mls @ 300 mls/hr IVPUSH DAILY [facility] Last Admin: 11/10/16 08:07 Dose: 300 mls/hr Infusion: 11/09/16 09:34 Dose: 300 mls/hr Admin: 11/09/16 09:32 Dose: 300 mls/hr Cefoxitin Sodium 1 gm/ Premix 50 mls @ 100 mls/hr IV Q6H [facility] Last Admin: 11/10/16 13:05 Dose: 100 mls/hr Infusion: 11/10/16 07:16 Dose: 100 mls/hr Admin: 11/10/16 06:46 Dose: 100 mls/hr Infusion: 11/10/16 01:53 Dose: 100 mls/hr Admin: 11/10/16 01:23 Dose: 100 mls/hr Infusion: 11/09/16 20:19 Dose: 100 mls/hr Admin: 11/09/16 19:49 Dose: 100 mls/hr Infusion: 11/09/16 12:57 Dose: 100 mls/hr Admin: 11/09/16 12:27 Dose: 100 mls/hr Infusion: 11/09/16 07:00 Dose: 100 mls/hr Admin: 11/09/16 06:30 Dose: 100 mls/hr Infusion: 11/09/16 01:14 Dose: 100 mls/hr Admin: 11/09/16 00:44 Dose: 100 mls/hr Infusion: 11/08/16 19:50 Dose: 100 mls/hr Admin: 11/08/16 19:20 Dose: 100 mls/hr Infusion: 11/08/16 14:18 Dose: 100 mls/hr Admin: 11/08/16 13:48 Dose: 100 mls/hr Lactated Ringer's (Ringers, Lactated) 1,000 mls @ 75 mls/hr IV ASDIRECTED [facility] Last Admin: 11/10/16 13:11 Dose: 75 mls/hr Morphine Sulfate (Morphine Data Integration Architect 30 Mg In 30 Ml) 0 mg IV ASDIRECTED PRN; Protocol PRN Reason: Pain (severe 7-10) Last Admin: 11/09/16 12:38 Dose: 30 mg Ondansetron HCl (Zofran) 4 mg IVPUSH Q8H PRN PRN Reason: Nausea/Vomiting Last Admin: 11/09/16 05:41 Dose: 4 mg Admin: 11/08/16 17:06 Dose: 4 mg Sodium Chloride (Saline Flush) 10 ml FLUSH ASDIRECTED PRN PRN Reason: Keep Vein Open Sodium Chloride (Saline Flush) 2.5 ml FLUSH ASDIRECTED PRN PRN Reason: Keep Vein Open - Assessment Assessment (Free Text/Narrative):: doing well postop day2 from extended r hemicolectomy; postop day 2, fluid from surgeyr will return, turn down ivf; continue ice chip, likely po sips of clear in the morning; will start sq heparin tomorrow morning - Plan Plan (Free Text/Narrative):: doing well postop day2 from extended r hemicolectomy; postop day 2, fluid from surgeyr will return, turn down ivf; continue ice chip, likely po sips of clear in the morning; will start sq heparin tomorrow morning
[2016-11-10] MEDS: Morphine PF 30 MG/30 ML PCA Vial IV PRN (20:33)
[2016-11-11] MEDS: cefOXitin 1 GM in Premix Bag 1 BAG IV SCH ×2 (00:55→06:22)
[2016-11-11] MEDS: Lactated Ringers 1,000 ML IV SCH ×2 (04:31→17:58)
[2016-11-11 05:52] LABS: CHLORIDE,CL 101 mmol/L (98-110); SODIUM,NA 138 mmol/L (136-146)
[2016-11-11] MEDS: Pantoprazole 40 MG in Sodium Chloride 0.9% 10 ML IVPUSH SCH (08:15)
[2016-11-11] MEDS ORDERED: Heparin Sodium 5,000 Units/ML Vial SUBCUT ONE (09:54)
--- NOTE | 2016-11-11 09:54 | PCM.SURGPN ---
- General Info POD#: 3 Post-Op Diagnosis: colon ca w mets - Review of Systems General: Reports: No Symptoms HEENT: Reports: No Symptoms (no flatus; tolerated sips of clear) - Patient Data Vitals - Most Recent: Last Vital Signs Temp 98.7 F 11/11/16 08:00 Pulse 69 11/11/16 08:00 Resp 18 11/11/16 08:00 BP 134/64 11/11/16 08:00 Pulse Ox 93 L 11/11/16 08:00 Weight - Most Recent: 141 lb 12.116 oz I&O - Last 24 Hours: Intake & Output 11/10/16 11/11/16 11/11/16 22:59 06:59 14:59 Intake Total 50 1050 Output Total 800 Balance -750 1050 Lab Results Last 24 Hrs: Laboratory Results - last 24 hr 11/07/16 11/11/16 11/11/16 Range/Units 11:48 05:20 05:20 WBC 8.70 (4.0-11.0) K/uL RBC 4.42 (4.30-5.90) M/uL Hgb 9.5 L (12.0-16.0) g/dL Hct 31.4 L (36.0-46.0) % MCV 71.0 L (80.0-98.0) fL MCH 21.5 L (27.0-32.0) pg MCHC 30.3 L (31.0-37.0) g/dL RDW Std Deviation 50.4 (28.0-62.0) fl RDW Coeff of [place] 20 H (11.0-15.0) % Plt Count 299 (150-400) K/uL MPV 9.00 (7.40-12.00) fL Neut % (Auto) 73.6 (48.0-80.0) % Lymph % (Auto) 17.7 (16.0-40.0) % [place] % (Auto) 8.3 (0.0-15.0) % Eos % (Auto) 0.3 (0.0-7.0) % Baso % (Auto) 0.1 (0.0-1.5) % Neut # (Auto) 6.4 H (1.4-5.7) K/uL Lymph # (Auto) 1.5 (0.6-2.4) K/uL [place] # (Auto) 0.7 (0.0-0.8) K/uL Eos # (Auto) 0.0 (0.0-0.7) K/uL Baso # (Auto) 0.0 (0.0-0.1) K/uL Sodium 138 (136-146) mmol/L Potassium 3.3 L (3.5-5.1) mmol/L Chloride 101 (98-110) mmol/L Carbon Dioxide 28 (21-31) mmol/L BUN 9 (6.0-23.0) mg/dL Creatinine 0.6 (0.6-1.5) mg/dL Est Cr Clr Drug Dosing 55.70 mL/min Estimated GFR (MDRD) > 60.0 ml/min Glucose 160 H (60-110) mg/dL Calcium 8.3 L (8.8-10.8) mg/dL Total Bilirubin 0.6 (0.1-1.5) mg/dL AST 14 (5-40) IU/L ALT 17 (8-54) IU/L Alkaline Phosphatase 58 (40-150) Total Protein 5.7 L (6.0-8.0) g/dL Albumin 3.2 L (3.4-4.8) g/dL Globulin 2.5 (2.0-3.5) g/dL Albumin/Globulin Ratio 1.3 (1.3-2.8) Blood Type A POSITIVE Antibody Screen NEGATIVE Crossmatch See Detail Med Orders - Current: Current Medications Fentanyl (Sublimaze) 50 mcg IVPUSH .Q5MIN PRN PRN Reason: Pain Stop: 11/12/16 09:14 Last Admin: 11/08/16 12:20 Dose: 50 mcg Pantoprazole Sodium 40 mg/ (Sodium Chloride) 10 mls @ 300 mls/hr IVPUSH DAILY [facility] Last Admin: 11/11/16 08:15 Dose: 300 mls/hr Lactated Ringer's (Ringers, Lactated) 1,000 mls @ 75 mls/hr IV ASDIRECTED [facility] Last Admin: 11/11/16 04:31 Dose: 75 mls/hr Morphine Sulfate (Morphine Blade Grader Operator 30 Mg In 30 Ml) 0 mg IV ASDIRECTED PRN; Protocol PRN Reason: Pain (severe 7-10) Last Admin: 11/10/16 20:33 Dose: 30 mg Ondansetron HCl (Zofran) 4 mg IVPUSH Q8H PRN PRN Reason: Nausea/Vomiting Last Admin: 11/09/16 05:41 Dose: 4 mg Sodium Chloride (Saline Flush) 10 ml FLUSH ASDIRECTED PRN PRN Reason: Keep Vein Open Sodium Chloride (Saline Flush) 2.5 ml FLUSH ASDIRECTED PRN PRN Reason: Keep Vein Open Discontinued Medications Bupivacaine HCl (Marcaine 0.5%) Confirm Administered Dose 90 ml .ROUTE .STK-MED ONE Stop: 11/08/16 07:40 Bupivacaine HCl (Sensorcaine-Mpf 0.5%) Confirm Administered Dose 20 ml .ROUTE .STK-MED ONE Stop: 11/08/16 07:41 Cefazolin Sodium (Ancef) Confirm Administered Dose 1 gm .ROUTE .STK-MED ONE Stop: 11/08/16 09:32 Erythromycin Ethylsuccinate (Eryped 200) 1,000 mg PO ONETIME ONE Stop: 11/07/16 12:30 Last Admin: 11/07/16 13:11 Dose: 25 ml Erythromycin Ethylsuccinate (Eryped 200) 1,000 mg PO ONETIME ONE Stop: 11/07/16 16:01 Last Admin: 11/07/16 16:22 Dose: 25 ml Erythromycin Ethylsuccinate (Eryped 200) 1,000 mg PO ONETIME ONE Stop: 11/07/16 20:01 Last Admin: 11/07/16 20:05 Dose: 1,000 mg Fentanyl (Sublimaze) Confirm Administered Dose 100 mcg .ROUTE .STK-MED ONE Stop: 11/08/16 07:19 Fentanyl (Sublimaze) Confirm Administered Dose 100 mcg .ROUTE .STK-MED ONE Stop: 11/08/16 10:51 Glycopyrrolate () Confirm Administered Dose 1 mg .ROUTE .STK-MED ONE Stop: 11/08/16 10:34 Hydromorphone HCl (Dilaudid) Confirm Administered Dose 2 mg .ROUTE .STK-MED ONE Stop: 11/08/16 07:20 Lactated Ringer's (Ringers, Lactated) 1,000 mls @ 125 mls/hr IV ASDIRECTED [facility] Last Infusion: 11/08/16 07:27 Dose: Infused Cefoxitin Sodium 2 gm/ Premix 50 mls @ 100 mls/hr IV ONETIME ONE Stop: 11/08/16 05:29 Last Admin: 11/08/16 06:28 Dose: 100 mls/hr Lactated Ringer's (Ringers, Lactated) 1,000 mls @ 100 mls/hr IV ASDIRECTED [facility] Last Admin: 11/10/16 01:22 Dose: 100 mls/hr Cefoxitin Sodium 1 gm/ Premix 50 mls @ 100 mls/hr IV Q6H [facility] Last Admin: 11/08/16 14:11 Dose: Not Given Cefoxitin Sodium 1 gm/ Premix 50 mls @ 100 mls/hr IV Q6H [facility] Last Admin: 11/11/16 06:22 Dose: 100 mls/hr Lidocaine (Xylocaine-Mpf 2%) Confirm Administered Dose 5 ml .ROUTE .STK-MED ONE Stop: 11/07/16 12:32 Last Admin: 11/07/16 14:47 Dose: Not Given Lidocaine (Xylocaine-Mpf 2%) Confirm Administered Dose 5 ml .ROUTE .STK-MED ONE Stop: 11/08/16 07:19 Midazolam HCl (Versed 1 Mg/Ml) Confirm Administered Dose 2 mg .ROUTE .STK-MED ONE Stop: 11/08/16 07:19 Morphine Sulfate (Duramorph Pf) Confirm Administered Dose 10 mg .ROUTE .STK-MED ONE Stop: 11/08/16 09:56 Morphine Sulfate (Morphine Blade Grader Operator 30 Mg In 30 Ml) 0 mg IV ASDIRECTED PRN; Protocol PRN Reason: Pain (severe 7-10) Last Admin: 11/08/16 12:16 Dose: 30 mg Neomycin Sulfate (Neomycin Sulfate) 1,000 mg PO ONETIME ONE Stop: 11/07/16 12:31 Last Admin: 11/07/16 13:11 Dose: 1,000 mg Neomycin Sulfate (Neomycin Sulfate) 1,000 mg PO ONETIME ONE Stop: 11/07/16 16:01 Last Admin: 11/07/16 16:22 Dose: 1,000 mg Neomycin Sulfate (Neomycin Sulfate) 1,000 mg PO ONETIME ONE Stop: 11/07/16 20:01 Last Admin: 11/07/16 20:03 Dose: 1,000 mg Neostigmine Methylsulfate (Neostigmine) Confirm Administered Dose 5 mg .ROUTE .STK-MED ONE Stop: 11/08/16 10:34 Ondansetron HCl (Zofran) Confirm Administered Dose 4 mg .ROUTE .STK-MED ONE Stop: 11/08/16 07:19 Phenylephrine HCl ([place]man-Synephrine) Confirm Administered Dose 10 mg .ROUTE .STK- MED ONE Stop: 11/08/16 07:20 Polyethylene Glycol/Electrolytes (Golytely) 4,000 ml PO ONETIME ONE Stop: 11/07/16 12:32 Last Admin: 11/07/16 13:12 Dose: 4,000 ml Propofol (Diprivan 20 Ml) Confirm Administered Dose 200 mg .ROUTE .STK-MED ONE Stop: 11/08/16 07:19 Rocuronium [place] (Zemuron) Confirm Administered Dose 100 mg .ROUTE .STK-MED ONE Stop: 11/08/16 07:19 - Exam Wound/Incisions: Healing Well, Dressing Dry and Intact, No Drainage General: Alert, Oriented Neck: Supple Lungs: Clear to Auscultation GI/Abdominal Exam: Soft, Non-Tender Skin: Warm, Dry, Intact - Problem List Review Problem List Initiated/Reviewed/Updated: Yes - My Orders Last 24 Hours: Active Orders 24 hr Category Date Time Status Communication Order [RC] DAILY Care 11/10/16 09:00 Active Clear Liquid Diet [DIET] Diet 11/11/16 Breakfast Active Lactated Ringers [Ringers, Lactated] 1,000 ml Med 11/10/16 10:25 Active IV ASDIRECTED Nasogastric Orogastric Tube Removal [OM.PC] Routine Oth 11/10/16 09:00 Ordered Medication Orders Fentanyl (Sublimaze) 50 mcg IVPUSH .Q5MIN PRN PRN Reason: Pain Stop: 11/12/16 09:14 Last Admin: 11/08/16 12:20 Dose: 50 mcg Admin: 11/08/16 11:54 Dose: 50 mcg Pantoprazole Sodium 40 mg/ (Sodium Chloride) 10 mls @ 300 mls/hr IVPUSH DAILY [facility] Last Admin: 11/11/16 08:15 Dose: 300 mls/hr Infusion: 11/10/16 08:09 Dose: 300 mls/hr Admin: 11/10/16 08:07 Dose: 300 mls/hr Infusion: 11/09/16 09:34 Dose: 300 mls/hr Admin: 11/09/16 09:32 Dose: 300 mls/hr Lactated Ringer's (Ringers, Lactated) 1,000 mls @ 75 mls/hr IV ASDIRECTED [facility] Last Admin: 11/11/16 04:31 Dose: 75 mls/hr Infusion: 11/11/16 02:31 Dose: 75 mls/hr Admin: 11/10/16 13:11 Dose: 75 mls/hr Morphine Sulfate (Morphine Blade Grader Operator 30 Mg In 30 Ml) 0 mg IV ASDIRECTED PRN; Protocol PRN Reason: Pain (severe 7-10) Last Admin: 11/10/16 20:33 Dose: 30 mg Admin: 11/09/16 12:38 Dose: 30 mg Ondansetron HCl (Zofran) 4 mg IVPUSH Q8H PRN PRN Reason: Nausea/Vomiting Last Admin: 11/09/16 05:41 Dose: 4 mg Admin: 11/08/16 17:06 Dose: 4 mg Sodium Chloride (Saline Flush) 10 ml FLUSH ASDIRECTED PRN PRN Reason: Keep Vein Open Sodium Chloride (Saline Flush) 2.5 ml FLUSH ASDIRECTED PRN PRN Reason: Keep Vein Open - Assessment Assessment (Free Text/Narrative):: pod#3 from extended r hemicolectomy, await bowel function; path report pending; encourage chew gums/ambulation; may advance diet tomorrow if flatus; will start sq heparin today - Plan Plan (Free Text/Narrative):: pod#3 from extended r hemicolectomy, await bowel function; path report pending; encourage chew gums/ambulation; may advance diet tomorrow if flatus; will start sq heparin today
[2016-11-12] MEDS: Lactated Ringers 1,000 ML IV SCH (08:12)
--- NOTE | 2016-11-12 08:32 | PCM.SURGPN ---
- General Info Date of Service: 11/12/16 POD#: 4 Functional Status: Reports: Pain Controlled - Review of Systems General: Reports: No Symptoms Gastrointestinal: Reports: No Symptoms (BM X 3, wound cdi) - Patient Data Vitals - Most Recent: Last Vital Signs Temp 98.3 F 11/12/16 04:00 Pulse 77 11/12/16 04:00 Resp 16 11/12/16 04:00 BP 133/62 11/12/16 04:00 Pulse Ox 91 L 11/12/16 04:00 Weight - Most Recent: 142 lb 6.698 oz I&O - Last 24 Hours: Intake & Output 11/11/16 11/12/16 11/12/16 22:59 06:59 14:59 Intake Total 1367 450 999 Output Total 600 1075 Balance 767 -625 999 Med Orders - Current: Current Medications Fentanyl (Sublimaze) 50 mcg IVPUSH .Q5MIN PRN PRN Reason: Pain Stop: 11/12/16 09:14 Last Admin: 11/08/16 12:20 Dose: 50 mcg Heparin Sodium (Porcine) (Heparin Sodium) 5,000 units SUBCUT BID [facility] Pantoprazole Sodium 40 mg/ (Sodium Chloride) 10 mls @ 300 mls/hr IVPUSH DAILY [facility] Last Admin: 11/11/16 08:15 Dose: 300 mls/hr Ondansetron HCl (Zofran) 4 mg IVPUSH Q8H PRN PRN Reason: Nausea/Vomiting Last Admin: 11/09/16 05:41 Dose: 4 mg Sodium Chloride (Saline Flush) 10 ml FLUSH ASDIRECTED PRN PRN Reason: Keep Vein Open Sodium Chloride (Saline Flush) 2.5 ml FLUSH ASDIRECTED PRN PRN Reason: Keep Vein Open Discontinued Medications Bupivacaine HCl (Marcaine 0.5%) Confirm Administered Dose 90 ml .ROUTE .STK-MED ONE Stop: 11/08/16 07:40 Bupivacaine HCl (Sensorcaine-Mpf 0.5%) Confirm Administered Dose 20 ml .ROUTE .STK-MED ONE Stop: 11/08/16 07:41 Cefazolin Sodium (Ancef) Confirm Administered Dose 1 gm .ROUTE .STK-MED ONE Stop: 11/08/16 09:32 Erythromycin Ethylsuccinate (Eryped 200) 1,000 mg PO ONETIME ONE Stop: 11/07/16 12:30 Last Admin: 11/07/16 13:11 Dose: 25 ml Erythromycin Ethylsuccinate (Eryped 200) 1,000 mg PO ONETIME ONE Stop: 11/07/16 16:01 Last Admin: 11/07/16 16:22 Dose: 25 ml Erythromycin Ethylsuccinate (Eryped 200) 1,000 mg PO ONETIME ONE Stop: 11/07/16 20:01 Last Admin: 11/07/16 20:05 Dose: 1,000 mg Fentanyl (Sublimaze) Confirm Administered Dose 100 mcg .ROUTE .STK-MED ONE Stop: 11/08/16 07:19 Fentanyl (Sublimaze) Confirm Administered Dose 100 mcg .ROUTE .STK-MED ONE Stop: 11/08/16 10:51 Glycopyrrolate () Confirm Administered Dose 1 mg .ROUTE .STK-MED ONE Stop: 11/08/16 10:34 Heparin Sodium (Porcine) (Heparin Sodium) 5,000 units SUBCUT ONETIME ONE Stop: 11/11/16 09:55 Last Admin: 11/11/16 10:42 Dose: 5,000 units Hydromorphone HCl (Dilaudid) Confirm Administered Dose 2 mg .ROUTE .STK-MED ONE Stop: 11/08/16 07:20 Lactated Ringer's (Ringers, Lactated) 1,000 mls @ 125 mls/hr IV ASDIRECTED [facility] Last Infusion: 11/08/16 07:27 Dose: Infused Cefoxitin Sodium 2 gm/ Premix 50 mls @ 100 mls/hr IV ONETIME ONE Stop: 11/08/16 05:29 Last Admin: 11/08/16 06:28 Dose: 100 mls/hr Lactated Ringer's (Ringers, Lactated) 1,000 mls @ 100 mls/hr IV ASDIRECTED [facility] Last Admin: 11/10/16 01:22 Dose: 100 mls/hr Cefoxitin Sodium 1 gm/ Premix 50 mls @ 100 mls/hr IV Q6H [facility] Last Admin: 11/08/16 14:11 Dose: Not Given Cefoxitin Sodium 1 gm/ Premix 50 mls @ 100 mls/hr IV Q6H [facility] Last Admin: 11/11/16 06:22 Dose: 100 mls/hr Lactated Ringer's (Ringers, Lactated) 1,000 mls @ 75 mls/hr IV ASDIRECTED [facility] Last Admin: 11/12/16 08:12 Dose: 75 mls/hr Lidocaine (Xylocaine-Mpf 2%) Confirm Administered Dose 5 ml .ROUTE .STK-MED ONE Stop: 11/07/16 12:32 Last Admin: 11/07/16 14:47 Dose: Not Given Lidocaine (Xylocaine-Mpf 2%) Confirm Administered Dose 5 ml .ROUTE .STK-MED ONE Stop: 11/08/16 07:19 Midazolam HCl (Versed 1 Mg/Ml) Confirm Administered Dose 2 mg .ROUTE .STK-MED ONE Stop: 11/08/16 07:19 Morphine Sulfate (Duramorph Pf) Confirm Administered Dose 10 mg .ROUTE .STK-MED ONE Stop: 11/08/16 09:56 Morphine Sulfate (Morphine Electrical Machine Builder 30 Mg In 30 Ml) 0 mg IV ASDIRECTED PRN; Protocol PRN Reason: Pain (severe 7-10) Last Admin: 11/08/16 12:16 Dose: 30 mg Morphine Sulfate (Morphine Electrical Machine Builder 30 Mg In 30 Ml) 0 mg IV ASDIRECTED PRN; Protocol PRN Reason: Pain (severe 7-10) Last Admin: 11/10/16 20:33 Dose: 30 mg Neomycin Sulfate (Neomycin Sulfate) 1,000 mg PO ONETIME ONE Stop: 11/07/16 12:31 Last Admin: 11/07/16 13:11 Dose: 1,000 mg Neomycin Sulfate (Neomycin Sulfate) 1,000 mg PO ONETIME ONE Stop: 11/07/16 16:01 Last Admin: 11/07/16 16:22 Dose: 1,000 mg Neomycin Sulfate (Neomycin Sulfate) 1,000 mg PO ONETIME ONE Stop: 11/07/16 20:01 Last Admin: 11/07/16 20:03 Dose: 1,000 mg Neostigmine Methylsulfate (Neostigmine) Confirm Administered Dose 5 mg .ROUTE .STK-MED ONE Stop: 11/08/16 10:34 Ondansetron HCl (Zofran) Confirm Administered Dose 4 mg .ROUTE .STK-MED ONE Stop: 11/08/16 07:19 Phenylephrine HCl ([place]-Synephrine) Confirm Administered Dose 10 mg .ROUTE .STK- MED ONE Stop: 11/08/16 07:20 Polyethylene Glycol/Electrolytes (Golytely) 4,000 ml PO ONETIME ONE Stop: 11/07/16 12:32 Last Admin: 11/07/16 13:12 Dose: 4,000 ml Propofol (Diprivan 20 Ml) Confirm Administered Dose 200 mg .ROUTE .STK-MED ONE Stop: 11/08/16 07:19 Rocuronium [place] (Zemuron) Confirm Administered Dose 100 mg .ROUTE .STK-MED ONE Stop: 11/08/16 07:19 - Exam Wound/Incisions: Healing Well General: Alert, Oriented Neck: Supple Lungs: Clear to Auscultation GI/Abdominal Exam: Soft, Non-Tender (wound cdi, no expressible drainage) - Problem List Review Problem List Initiated/Reviewed/Updated: Yes - My Orders Last 24 Hours: Active Orders 24 hr Category Date Time Status Full Liquid Diet [DIET] Diet 11/12/16 Breakfast Active Heparin Sodium Med 11/12/16 09:00 Active 5,000 units SUBCUT BID Medication Orders Fentanyl (Sublimaze) 50 mcg IVPUSH .Q5MIN PRN PRN Reason: Pain Stop: 11/12/16 09:14 Last Admin: 11/08/16 12:20 Dose: 50 mcg Admin: 11/08/16 11:54 Dose: 50 mcg Heparin Sodium (Porcine) (Heparin Sodium) 5,000 units SUBCUT BID [facility] Pantoprazole Sodium 40 mg/ (Sodium Chloride) 10 mls @ 300 mls/hr IVPUSH DAILY [facility] Last Admin: 11/11/16 08:15 Dose: 300 mls/hr Infusion: 11/10/16 08:09 Dose: 300 mls/hr Admin: 11/10/16 08:07 Dose: 300 mls/hr Infusion: 11/09/16 09:34 Dose: 300 mls/hr Admin: 11/09/16 09:32 Dose: 300 mls/hr Ondansetron HCl (Zofran) 4 mg IVPUSH Q8H PRN PRN Reason: Nausea/Vomiting Last Admin: 11/09/16 05:41 Dose: 4 mg Admin: 11/08/16 17:06 Dose: 4 mg Sodium Chloride (Saline Flush) 10 ml FLUSH ASDIRECTED PRN PRN Reason: Keep Vein Open Sodium Chloride (Saline Flush) 2.5 ml FLUSH ASDIRECTED PRN PRN Reason: Keep Vein Open - Assessment Assessment (Free Text/Narrative):: pod#4 from extended R hemicolectomy, doing well, advance diet today, plan dc home w home health care tomorrow; pt has a wound need assessment daily, and she is living alone. dc side laster to percocet - Plan Plan (Free Text/Narrative):: pod#4 from extended R hemicolectomy, doing well, advance diet today, plan dc home w home health care tomorrow; pt has a wound need assessment daily, and she is living alone.
[2016-11-12] MEDS: Pantoprazole 40 MG in Sodium Chloride 0.9% 10 ML IVPUSH SCH (08:54)
[2016-11-12] MEDS: Heparin Sodium 5,000 Units/ML Vial SUBCUT SCH ×2 (08:55→20:58)
[2016-11-12] MEDS: Acetaminophen/oxyCODONE 325-5 MG Tab PO PRN ×2 (12:53→18:27)
[2016-11-13] MEDS: Acetaminophen/oxyCODONE 325-5 MG Tab PO PRN ×3 (01:02→13:32)
[2016-11-13] MEDS: Pantoprazole 40 MG in Sodium Chloride 0.9% 10 ML IVPUSH SCH (08:00)
[2016-11-13] MEDS: Heparin Sodium 5,000 Units/ML Vial SUBCUT SCH (08:01)
--- NOTE | 2016-11-13 12:32 | PCM.DCSUM1 ---
Discharge Summary - Hospital Course Free Text/Narrative:: admitted for colon ca surgery Brief History: see admission h/p for details; colonoscope found mass, bx > colon ca, now for surgery intervention - Discharge Data Discharge Date: 11/13/16 Discharge Disposition: Home, Self-Care 01 Condition: Good - Patient Summary/Data Operative Procedure(s) Performed: extended r hemicolectomy, peritoneal biopsy, yelitza Recommended Follow-up Testing/Procedures: fu 1 - 2 wks Hospital Course: pt was preadmitted to icu for bowel prep for colon surgery; the next day, pt was s/p extended r hemicolectomy, intraop bx > mets disease; postop pt stayed in icu overnight, uneventful; pt txferred to floor the next morning; and bowel function returned on day #3, and has since been advanced diet to regular diet; pt had regular bm everyday since day 3, well formed, brown; pain is in good control upon discharge; able to ambulate by self; path reported reviewed w pt and family. - Patient Instructions Diet: Regular Diet as Tolerated Diet, Other: light diet, slow advance, avoid greasy food Activity: No Lifting Over 10 Pounds, No Strenuous Activities Driving: Do Not Drive Showering/Bathing: May Shower Wound/Incision Care: Keep Operative Site/Wound Site Clean and Dry Notify Provider of: Fever, Drainage, Nausea and/or Vomiting - Discharge Plan Prescriptions/Med Rec: Acetaminophen/oxyCODONE [Percocet 325-5 MG] 1 tab PO Q6H PRN #30 tablet PRN Reason: Pain Docusate Sodium [Colace] 100 mg PO DAILY #5 cap Home Medications: Home Meds Ascorbic Acid [Vitamin C] 1,000 mg PO DAILY 09/10/16 [History] Cholecalciferol (Vitamin D3) [Vitamin D3] 1,000 units PO DAILY 09/10/16 [History ] Cyanocobalamin (Vitamin B12) [Vitamin B12] 500 mcg PO DAILY 09/10/16 [History] Losartan Potassium 25 mg PO DAILY 09/10/16 [History] atorvaSTATin Calcium [Atorvastatin Calcium] 20 mg PO DAILY 09/10/16 [History] metFORMIN HCl [Metformin HCl] 500 mg PO BEDTIME 09/10/16 [History] Acetaminophen/oxyCODONE [Percocet 325-5 MG] 1 tab PO Q6H PRN #30 tablet [Rx] Docusate Sodium [Colace] 100 mg PO DAILY #5 cap 11/13/16 [Rx] Patient Handouts: Acetaminophen; Oxycodone tablets, Incision Care, [id number] , Docusate capsules Referrals: Elieser El MD [Primary Care Provider] - 11/22/16 11:00 am - Discharge Summary/Plan Comment DC Time >30 min.: Yes - Patient Data Vitals - Most Recent: Last Vital Signs Temp 98.5 F 11/13/16 08:00 Pulse 75 11/13/16 08:00 Resp 18 11/13/16 08:00 BP 130/59 L 11/13/16 08:00 Pulse Ox 94 L 11/13/16 08:00 Weight - Most Recent: 139 lb 15.896 oz I&O - Last 24 hours: Intake & Output 11/12/16 11/13/16 11/13/16 22:59 06:59 14:59 Intake Total 590 270 Output Total 725 1000 Balance -135 -730 Med Orders - Current: Current Medications Heparin Sodium (Porcine) (Heparin Sodium) 5,000 units SUBCUT BID [facility] Last Admin: 11/13/16 08:01 Dose: 5,000 units Pantoprazole Sodium 40 mg/ (Sodium Chloride) 10 mls @ 300 mls/hr IVPUSH DAILY [facility] Last Admin: 11/13/16 08:00 Dose: 300 mls/hr Ondansetron HCl (Zofran) 4 mg IVPUSH Q8H PRN PRN Reason: Nausea/Vomiting Last Admin: 11/09/16 05:41 Dose: 4 mg Oxycodone/Acetaminophen (Percocet 325-5 Mg) 1 tab PO Q6H PRN PRN Reason: Pain Last Admin: 11/13/16 07:51 Dose: 1 tab Sodium Chloride (Saline Flush) 10 ml FLUSH ASDIRECTED PRN PRN Reason: Keep Vein Open Sodium Chloride (Saline Flush) 2.5 ml FLUSH ASDIRECTED PRN PRN Reason: Keep Vein Open Discontinued Medications Bupivacaine HCl (Marcaine 0.5%) Confirm Administered Dose 90 ml .ROUTE .STK-MED ONE Stop: 11/08/16 07:40 Bupivacaine HCl (Sensorcaine-Mpf 0.5%) Confirm Administered Dose 20 ml .ROUTE .STK-MED ONE Stop: 11/08/16 07:41 Cefazolin Sodium (Ancef) Confirm Administered Dose 1 gm .ROUTE .STK-MED ONE Stop: 11/08/16 09:32 Erythromycin Ethylsuccinate (Eryped 200) 1,000 mg PO ONETIME ONE Stop: 11/07/16 12:30 Last Admin: 11/07/16 13:11 Dose: 25 ml Erythromycin Ethylsuccinate (Eryped 200) 1,000 mg PO ONETIME ONE Stop: 11/07/16 16:01 Last Admin: 11/07/16 16:22 Dose: 25 ml Erythromycin Ethylsuccinate (Eryped 200) 1,000 mg PO ONETIME ONE Stop: 11/07/16 20:01 Last Admin: 11/07/16 20:05 Dose: 1,000 mg Fentanyl (Sublimaze) Confirm Administered Dose 100 mcg .ROUTE .STK-MED ONE Stop: 11/08/16 07:19 Fentanyl (Sublimaze) 50 mcg IVPUSH .Q5MIN PRN PRN Reason: Pain Stop: 11/12/16 09:14 Last Admin: 11/08/16 12:20 Dose: 50 mcg Fentanyl (Sublimaze) Confirm Administered Dose 100 mcg .ROUTE .STK-MED ONE Stop: 11/08/16 10:51 Glycopyrrolate () Confirm Administered Dose 1 mg .ROUTE .STK-MED ONE Stop: 11/08/16 10:34 Heparin Sodium (Porcine) (Heparin Sodium) 5,000 units SUBCUT ONETIME ONE Stop: 11/11/16 09:55 Last Admin: 11/11/16 10:42 Dose: 5,000 units Hydromorphone HCl (Dilaudid) Confirm Administered Dose 2 mg .ROUTE .STK-MED ONE Stop: 11/08/16 07:20 Lactated Ringer's (Ringers, Lactated) 1,000 mls @ 125 mls/hr IV ASDIRECTED [facility] Last Infusion: 11/08/16 07:27 Dose: Infused Cefoxitin Sodium 2 gm/ Premix 50 mls @ 100 mls/hr IV ONETIME ONE Stop: 11/08/16 05:29 Last Admin: 11/08/16 06:28 Dose: 100 mls/hr Lactated Ringer's (Ringers, Lactated) 1,000 mls @ 100 mls/hr IV ASDIRECTED [facility] Last Admin: 11/10/16 01:22 Dose: 100 mls/hr Cefoxitin Sodium 1 gm/ Premix 50 mls @ 100 mls/hr IV Q6H [facility] Last Admin: 11/08/16 14:11 Dose: Not Given Cefoxitin Sodium 1 gm/ Premix 50 mls @ 100 mls/hr IV Q6H [facility] Last Admin: 11/11/16 06:22 Dose: 100 mls/hr Lactated Ringer's (Ringers, Lactated) 1,000 mls @ 75 mls/hr IV ASDIRECTED [facility] Last Admin: 11/12/16 08:12 Dose: 75 mls/hr Lidocaine (Xylocaine-Mpf 2%) Confirm Administered Dose 5 ml .ROUTE .STK-MED ONE Stop: 11/07/16 12:32 Last Admin: 11/07/16 14:47 Dose: Not Given Lidocaine (Xylocaine-Mpf 2%) Confirm Administered Dose 5 ml .ROUTE .STK-MED ONE Stop: 11/08/16 07:19 Midazolam HCl (Versed 1 Mg/Ml) Confirm Administered Dose 2 mg .ROUTE .STK-MED ONE Stop: 11/08/16 07:19 Morphine Sulfate (Duramorph Pf) Confirm Administered Dose 10 mg .ROUTE .STK-MED ONE Stop: 11/08/16 09:56 Morphine Sulfate (Morphine [employer] 30 Mg In 30 Ml) 0 mg IV ASDIRECTED PRN; Protocol PRN Reason: Pain (severe 7-10) Last Admin: 11/08/16 12:16 Dose: 30 mg Morphine Sulfate (Morphine [employer] Manager 30 Mg In 30 Ml) 0 mg IV ASDIRECTED PRN; Protocol PRN Reason: Pain (severe 7-10) Last Admin: 11/10/16 20:33 Dose: 30 mg Neomycin Sulfate (Neomycin Sulfate) 1,000 mg PO ONETIME ONE Stop: 11/07/16 12:31 Last Admin: 11/07/16 13:11 Dose: 1,000 mg Neomycin Sulfate (Neomycin Sulfate) 1,000 mg PO ONETIME ONE Stop: 11/07/16 16:01 Last Admin: 11/07/16 16:22 Dose: 1,000 mg Neomycin Sulfate (Neomycin Sulfate) 1,000 mg PO ONETIME ONE Stop: 11/07/16 20:01 Last Admin: 11/07/16 20:03 Dose: 1,000 mg Neostigmine Methylsulfate (Neostigmine) Confirm Administered Dose 5 mg .ROUTE .STK-MED ONE Stop: 11/08/16 10:34 Ondansetron HCl (Zofran) Confirm Administered Dose 4 mg .ROUTE .STK-MED ONE Stop: 11/08/16 07:19 Phenylephrine HCl (Aman-Synephrine) Confirm Administered Dose 10 mg .ROUTE .STK- MED ONE Stop: 11/08/16 07:20 Polyethylene Glycol/Electrolytes (Golytely) 4,000 ml PO ONETIME ONE Stop: 11/07/16 12:32 Last Admin: 11/07/16 13:12 Dose: 4,000 ml Propofol (Diprivan 20 Ml) Confirm Administered Dose 200 mg .ROUTE .STK-MED ONE Stop: 11/08/16 07:19 Rocuronium [place] (Zemuron) Confirm Administered Dose 100 mg .ROUTE .STK-MED ONE Stop: 11/08/16 07:19 *Q Meaningful Use (DIS) - VTE *Q VTE Criteria *Q: - Stroke *Q Stroke Criteria *Q: - AMI *Q AMI Criteria *Q:
[2016-11-13 14:04] VITALS: BP 131/63
== END 2016-11-13 13:40 | disposition home or self-care (01) | DRG 330 ==
LOC: MW.SDS 10:22 → MW.MS 10:23 → UNDOADMIN 10:23 → MW.MS 12:57 → MW.ICU 11-08 09:52 → MW.MS 11-09 15:43 → UNDODISIN 11-13 13:40
PROVIDERS: ADMIT Surgery; ATTEND Surgery
PROC: 0DBF0ZZ Excision of Right Large Intestine, Open Approach (ICD-10-PCS; principal; 2016-11-08)
PROC: 0DNF0ZZ Release Right Large Intestine, Open Approach (ICD-10-PCS; 2016-11-08)
PROC: 0DBW0ZX Excision of Peritoneum, Open Approach, Diagnostic (ICD-10-PCS; 2016-11-08)
PROC: 30233N1 Transfusion of Nonautologous Red Blood Cells into Peripheral Vein, Percutaneous Approach (ICD-10-PCS; 2016-11-08)
DX: C18.9 Malignant neoplasm of colon, unspecified (principal); E86.0 Dehydration; C78.6 Secondary malignant neoplasm of retroperitoneum and peritoneum
CPT/HCPCS: 00790; 36415; 36430; 71010; 71010-26; 80048; 80053; 82962; 85014; 85018; 85025; 85027; 86850; 86900; 86901; 86920; 86921; 86922; 88305; 88309; 88329; 88331; 93005; A9270-GY; C9113; J0690; J0694; J1170; J1644; J2250; J2270; J2274; J2370; J2405; J2704; J3010; J7120; P9016

== ENCOUNTER → 2017-01-04 | Day surgery (SDC) | payer MEDICARE, BC ==
[~2017-01-04] MED LIST changes: +Acetaminophen/oxyCODONE 325-5 MG Tab PO PRN; +Bupivacaine 25%/EPINEPHrine/PF 0 ML ONE; +Bupivacaine 25%/EPINEPHrine/PF 30 ML ONE; +Heparin Sodium 100 Units/ML 3 ML Syringe ONE; -Lidocaine 2% 5 ML SDV ONE; +Midazolam 1 MG/ML 2 ML SDV ONE; +Ondansetron 4 MG/2 ML SDV ONE; +ceFAZolin 1 GM in Premix Bag 1 BAG IV ONE; +fentaNYL 100 MCG/2 ML SDV ONE
--- NOTE | 2017-01-04 11:45 | PCM.PREANE ---
Preanesthetic Assessment - Anesthesia/Transfusion/Family Hx Anesthesia History: Prior Anesthesia Without Reaction Family History of Anesthesia Reaction: No Transfusion History: Prior Transfusion Without Reaction Type of Transfusion Reactions: Reports: Other (see below) Intubation History: Unknown - Review of Systems General: No Symptoms Pulmonary: No Symptoms Cardiovascular: No Symptoms Gastrointestinal: No Symptoms Neurological: No Symptoms Other: Reports: None - Physical Assessment Height: 1.57 m Weight: 59.874 kg ASA Class: 3 Mental Status: Alert & Oriented x3 Airway Class: Mallampati = 2 Dentition: Reports: Normal Dentition, Missing Tooth/Teeth (multiple at the bottom) Thyro-Mental Finger Breadths: 3 Mouth Opening Finger Breadths: 2 ROM/Head Extension: Limited/Partial Lungs: Clear to Auscultation, Normal Respiratory Effort Cardiovascular: Regular Rate, Regular Rhythm - Allergies Allergies/Adverse Reactions: Allergies Allergy/AdvReac Type Severity Reaction Status Date / Time No Known Allergies Allergy Verified 09/10/16 07:38 - Blood Blood Available: No - Anesthesia Plan Pre-Op Medication Ordered: None - Acknowledgements Anesthesia Type Planned: MAC (general anesthesia back-up plan) Pt an Appropriate Candidate for the Planned Anesthesia: Yes Alternatives and Risks of Anesthesia Discussed w Pt/Guardian: Yes Pt/Guardian Understands and Agrees with Anesthesia Plan: Yes PreAnesthesia Questionnaire HEENT History: Reports: None Cardiovascular History: Reports: High Cholesterol, Hypertension Respiratory History: Reports: None Gastrointestinal History: Reports: Other (See Below) Other Gastrointestinal History: hx gastric ulcer, Colon CA Genitourinary History: Reports: None 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: , 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 Musculoskeletal History: Reports: None Neurological History: Reports: None Psychiatric History: Reports: None Endocrine/Metabolic History: Reports: Diabetes, Type II Hematologic History: Reports: Anemia, Blood Transfusion(s) Other Hematologic History: had transfusion prior to colon surgery Immunologic History: Reports: None Oncologic (Cancer) History: Reports: Colon Dermatologic History: Reports: None - Infectious Disease History Infectious Disease History: Reports: None - Past Surgical History Head Surgeries/Procedures: Reports: None HEENT Surgical History: Reports: Cataract Surgery Respiratory Surgical History: Reports: None GI Surgical History: Reports: Appendectomy, Cholecystectomy, Colon (colon resection for cancer 11/07/16), Colonoscopy Other GI Surgeries/Procedures: partial colectomy for colon cancer Female Surgical History: Reports: Hysterectomy Neurological Surgical History: Reports: None Musculoskeletal Surgical History: Reports: None - SUBSTANCE USE Smoking Status *Q: Former Smoker Tobacco Use Within Last Twelve Months: No Second Hand Smoke Exposure: No Recreational Drug Use History: No - HOME MEDS Home Medications: Home Meds Cholecalciferol (Vitamin D3) [Vitamin D3] 1,000 units CHEW DAILY 09/10/16 [ History] Cyanocobalamin (Vitamin B12) [Vitamin B12] 500 mcg PO DAILY 09/10/16 [History] Losartan Potassium 25 mg PO DAILY 09/10/16 [History] atorvaSTATin Calcium [Atorvastatin Calcium] 10 mg PO DAILY 09/10/16 [History] metFORMIN HCl [Metformin HCl] 500 mg PO BEDTIME 09/10/16 [History] Ascorbic Acid [Vitamin C] 1,000 mg PO DAILY 12/30/16 [History] Gabapentin [Neurontin] 100 mg PO BEDTIME 12/30/16 [History] - CURRENT (IN HOUSE) MEDS Current Meds: Current Medications Lactated Ringer's (Ringers, Lactated) 1,000 mls @ 125 mls/hr IV ASDIRECTED SHERIE Last Admin: 01/04/17 10:48 Dose: 125 mls/hr Discontinued Medications Fentanyl (Sublimaze) Confirm Administered Dose 100 mcg .ROUTE .STK-MED ONE Stop: 01/04/17 10:39 Heparin Sodium (Porcine) (Heparin Lock Flush 100 Units/Ml) Confirm Administered Dose 600 unit .ROUTE .STK-MED ONE Stop: 01/04/17 07:20 Cefazolin Sodium/Dextrose 1 gm (/ Premix) 50 mls @ 100 mls/hr IV ONETIME ONE Stop: 01/04/17 05:29 Bupivacaine HCl/Epinephrine Bitart (Sensorc Mpf 0.25%-Epi 1:[id number]) Confirm Administered Dose 30 mls @ as directed .ROUTE .STK-MED ONE Stop: 01/04/17 07:20 Lidocaine HCl (Xylocaine-Mpf 1%) Confirm Administered Dose 5 ml .ROUTE .STK-MED ONE Stop: 01/04/17 10:41 Ondansetron HCl (Zofran) Confirm Administered Dose 4 mg .ROUTE .STK-MED ONE Stop: 01/04/17 10:41 Propofol (Diprivan 20 Ml) Confirm Administered Dose 200 mg .ROUTE .STK-MED ONE Stop: 01/04/17 10:38
[2017-01-04 12:10] VITALS: BP 137/74
--- NOTE | 2017-01-04 13:03 | PCM.SN ---
- Free Text/Narrative Note: Due to technical problems, only 1 c arm, and an emergency orthopedic case is going; pt agreeed to have surgery re-schedule tomorrow
== END | disposition home or self-care (01) ==
LOC: MW.SDS 10:19
PROVIDERS: ATTEND Surgery
DX: Z53.8 Procedure and treatment not carried out for other reasons (principal); I10 Essential (primary) hypertension; E78.00 Pure hypercholesterolemia, unspecified; E11.9 Type 2 diabetes mellitus without complications; Z90.49 Acquired absence of other specified parts of digestive tract; Z90.710 Acquired absence of both cervix and uterus; Z87.891 Personal history of nicotine dependence; Z79.84 Long term (current) use of oral hypoglycemic drugs; Z79.899 Other long term (current) drug therapy
CPT/HCPCS: J0690; J1642; J2250; J2405; J3010; J7120; J2704

== ENCOUNTER 2017-01-05 10:20 | Day surgery (SDC) | payer MEDICARE, BC ==
[2017-01-05] MEDS ORDERED: CEFAZOLIN IV ONE (10:21)
[2017-01-05] MEDS ORDERED: Propofol 200 MG/20 ML SDV IV ONE (10:21)
[2017-01-05] MEDS ORDERED: Midazolam 1 MG/ML 2 ML SDV IV ONE (10:21)
[2017-01-05] MEDS ORDERED: Ondansetron 4 MG/2 ML SDV IVPUSH ONE (10:21)
[2017-01-05] MEDS ORDERED: fentaNYL 100 MCG/2 ML SDV IV ONE (10:21)
[2017-01-05] MEDS ORDERED: [UNRECOGNIZED DRUG - OTHER] IV ONE (10:21)
[2017-01-05] MEDS ORDERED: Heparin Sodium 100 Units/ML 3 ML Syringe FLUSH ONE (10:21)
[2017-01-05] MEDS ORDERED: Bupivacaine 25%/EPINEPHrine/PF 30 ML Vial INJECT ONE (10:21)
--- NOTE | 2017-01-05 14:15 | CR ---
EXAMINATION: Portable chest radiograph. HISTORY: Postoperative. FINDINGS: The trachea is midline. The cardiomediastinal silhouette is within normal limits. No pulmonary infilt rates, effusions or pneumothorax. There is a left-sided oanh catheter noted with tip in the SVC. Osseous structures appear unremarkable. IMPRESSION: No definite pneumothorax identified.
--- NOTE | 2017-01-05 14:17 | PCM.SN ---
- Free Text/Narrative Note: cxr > no ptx, pt is ok to be discharged; port is ok to be used, routine port maintenance
--- NOTE | 2017-01-05 14:21 | PCM.OPNOTE ---
- General Post-Op/Procedure Note Date of Surgery/Procedure: 01/05/17 Operative Procedure(s): portacath placement to L SV Findings: postop cxr, no ptx, port is in good postion, good blood return; port is ok to be used, routine port maintenance; [id number] Pre Op Diagnosis: colon ca requiring iv access for chemotx Post-Op Diagnosis: Same Anesthesia Technique: General LMA Primary Surgeon: Elieser El Complications: None Condition: Good Free Text/Narrative:: Intake & Output 01/04/17 01/05/17 01/05/17 22:59 06:59 14:59 Intake Total 750 Balance 750
--- NOTE | 2017-01-05 14:31 | PCM.POSTAN ---
POST ANESTHESIA ASSESSMENT - MENTAL STATUS Mental Status: Alert, Oriented - RESPIRATORY Respiratory Status: Respiratory Rate WNL, Airway Patent, O2 Saturation Stable - CARDIOVASCULAR CV Status: Pulse Rate WNL, Blood Pressure Stable - GASTROINTESTINAL GI Status: No Symptoms - POST OP HYDRATION Hydration Status: Adequate & Stable
[2017-01-05 14:49] VITALS: BP 145/72
--- NOTE | 2017-01-05 20:17 | OR ---
SURGEON: Elieser El MD DATE OF PROCEDURE: 01/05/2017 PREOPERATIVE DIAGNOSIS: Colon cancer requiring IV access for chemotherapy. POSTOPERATIVE DIAGNOSIS: Colon cancer requiring IV access for chemotherapy. PROCEDURES PERFORMED: Port placement to the left subclavian vein. COMPLICATIONS: None. FINDINGS: Using Seldinger technique, the port was placed with good blood return. Postoperative, chest x-ray revealed no pneumothorax and port was in good position. Port is okay to be used with routine port maintenance. PROCEDURE: The patient was taken to the operating room and placed in the supine position and a roll of towel was placed between the scapulae to hyperextend the neck. The patient's area of surgery was prepped and draped in a sterile fashion. Using a Seldinger technique, a small incision was made after local anesthetic and a small incision right below the clavicle was made using a skin scalpel. This was followed with placement of guiding needle until good blood returned, followed with guidewire placement confirmed with fluoroscopy and placement with dilator and a catheter. Again, the catheter was noted to be in good position. Then the catheter was tunneled through the skin to a separatea exit area. Subcu pocket was made. IV port was then placed in a pocket after inserting the catheter. The IV port was then anchored to the skin by the use of 2-0 silk. The wound was then closed using 3-0 Vicryl and also the small skin incision was also closed with 3-0 Vicryl. Upon completion of the procedure, IV port was accessed and noted to have good blood return and also placement with IV Heparin solution. The patient tolerated the procedure well. There were no intraoperative complications. Portable chest x-ray pending. Just before surgery, a timeout was called. The patient was identified and procedure identified and procedure started. ANDRZEJ / ANGEL /[id number]
== END 2017-01-05 14:30 | disposition home or self-care (01) ==
LOC: MW.SDS 10:20
PROVIDERS: ATTEND Surgery
DX: Z45.2 Encounter for adjustment and management of vascular access device (principal); C18.9 Malignant neoplasm of colon, unspecified; I10 Essential (primary) hypertension; E78.00 Pure hypercholesterolemia, unspecified; E10.9 Type 1 diabetes mellitus without complications; Z79.84 Long term (current) use of oral hypoglycemic drugs; Z79.899 Other long term (current) drug therapy; Z90.49 Acquired absence of other specified parts of digestive tract; Z90.710 Acquired absence of both cervix and uterus; Z98.890 Other specified postprocedural states; Z72.0 Tobacco use
CPT/HCPCS: 36561; 71010; 76000; C1788; J0690; J1642; J2250; J2405; J3010; 00532; J2704

== ENCOUNTER 2018-11-14 06:35 | Day surgery (SDC) | payer MEDICARE, BC ==
[~2018-11-14 06:35] MED LIST changes: -Acetaminophen/oxyCODONE 325-5 MG Tab PO PRN; -Bupivacaine 25%/EPINEPHrine/PF 0 ML ONE; -Bupivacaine 25%/EPINEPHrine/PF 30 ML ONE; -Heparin Sodium 100 Units/ML 3 ML Syringe ONE; -Midazolam 1 MG/ML 2 ML SDV ONE; -Ondansetron 4 MG/2 ML SDV ONE; -Propofol 200 MG/20 ML SDV ONE; +Sodium Chloride 0.9% 10 ML SDV IV PRN; +Sodium Chloride 0.9% 10 ML Syringe FLUSH PRN; +Sodium Chloride 0.9% 2.5 ML Syringe FLUSH PRN; -ceFAZolin 1 GM in Premix Bag 1 BAG IV ONE; -fentaNYL 100 MCG/2 ML SDV ONE
[2018-11-14] MEDS ORDERED: Iopamidol 408 MG/ML 50 ML SDV ONE (07:35)
[2018-11-14] MEDS ORDERED: Midazolam 1 MG/ML 2 ML SDV ONE ×2 (08:07→08:51)
[2018-11-14] MEDS ORDERED: Lidocaine 1% 20 ML MDV ONE (08:09)
[2018-11-14] MEDS ORDERED: ceFAZolin 1 GM Vial ONE (08:10)
[2018-11-14 10:21] VITALS: BP 147/64
--- NOTE | 2018-11-14 10:56 | OR ---
SURGEON: Monty Aguilar M.D. DATE OF PROCEDURE: 11/14/2018 PREOPERATIVE DIAGNOSIS: Right ureteral obstruction secondary to what is most likely recurrent adenocarcinoma of the colon. POSTOPERATIVE DIAGNOSIS: Right ureteral obstruction secondary to what is most likely recurrent adenocarcinoma of the colon. OPERATION: Cystoscopy, right retrograde pyelogram, and double-J stent placement. DESCRIPTION OF PROCEDURE: The patient was placed in dorsal lithotomy position, prepped and draped in sterile drapes. Cystourethroscopy was done that was unremarkable. A guidewire was attempted in the right ureter that would not go up through the obstructed area. A Glidewire was then advanced through and that would just curl up in the ureter above the obstruction. So a right retrograde pyelogram was done, showed the area of obstruction, which appears to be about 2 to 3 cm in length, at the junction of the right middle and right lower ureter overlying the pelvic brim. A Glidewire was then advanced through that all the way up into the renal pelvis over which a 7-[place] 26 cm double-J stent was placed. Position was confirmed on fluoroscopy. The bladder was emptied, and the patient was moved back to day surgery in stable condition. LOYD / ANGEL /[id number]
[2018-11-14] MEDS ORDERED: metFORMIN 500 MG Tab PO SCH (21:00)
[2018-11-14] MEDS ORDERED: Gabapentin 100 MG Cap PO SCH (21:00)
[2018-11-15] MEDS ORDERED: atorvaSTATin 10 MG Tab PO SCH (09:00)
[2018-11-15] MEDS ORDERED: LOSARTAN POTASSIUM 25 MG PO SCH (09:00)
[2018-11-15] MEDS ORDERED: Cyanocobalamin (Vitamin B12) 500 MCG Tab PO SCH (09:00)
[2018-11-15] MEDS ORDERED: Non-Formulary Medication 1 Each (Cholecalciferol (Vitamin D3) [Vitamin D3] 1,000 UNITS) CHEW SCH (09:00)
--- NOTE | 2018-11-17 13:42 | CR ---
INDICATION: Cystoscopy. IMPRESSION: 45 seconds fluoro time. Nine images. Please see procedure notes for discussion. Right ureteral stent placed through dilated mid ureter likely due to stricture. Dictated by Dwaine Herring MD @ Nov 17 2018 1:41PM Signed by Dr. Dwaine Herring @ Nov 17 2018 1:41PM
== END 2018-11-14 09:50 | disposition home or self-care (01) ==
LOC: MW.SDS 06:35
PROVIDERS: ATTEND Urology
DX: N13.1 Hydronephrosis with ureteral stricture, not elsewhere classified (principal); C18.9 Malignant neoplasm of colon, unspecified; I10 Essential (primary) hypertension; E78.00 Pure hypercholesterolemia, unspecified; E10.9 Type 1 diabetes mellitus without complications; F17.200 Nicotine dependence, unspecified, uncomplicated; Z79.82 Long term (current) use of aspirin; Z79.899 Other long term (current) drug therapy; Z79.84 Long term (current) use of oral hypoglycemic drugs
CPT/HCPCS: 52332; 76000; C1769; C2617; J0690; J7120; Q9966; J2001

== ENCOUNTER 2019-01-30 15:48 | Inpatient (IN) | payer MEDICARE, BC ==
--- NOTE | 2019-01-30 15:52 | EDM.PDOC ---
ED HPI GENERAL MEDICAL PROBLEM - General Stated Complaint: FEVER Time Seen by Provider: 01/30/19 15:49 Source of Information: Reports: Patient History Limitations: Reports: No Limitations - History of Present Illness INITIAL COMMENTS - FREE TEXT/NARRATIVE: HISTORY AND PHYSICAL: History of present illness: Patient is an 83-year-old female who presents to the emergency room with concerns of subjective fevers. She states that she has felt warm and had 2 episodes of loose stools earlier today. She has had some increase in urinary frequency but unsure if this is due to a UTI or that she has increased her fluids. Patient has a history of colon cancer (last chemo was 1 month ago), hypertension, type 1 DM, and frequent UTI's. Patient denies any fever, chills, headache, change in vision, syncope or near syncope. Denies any chest pain, back pain, shortness of breath or cough. Denies any abdominal pain, nausea, vomiting, or constipation. Has not noted any blood in urine or stool. Patient has been eating and drinking appropriately. Review of systems: As per history of present illness and below otherwise all systems reviewed and negative. Past medical history: As per history of present illness and as reviewed below otherwise noncontributory. Surgical history: As per history of present illness and as reviewed below otherwise noncontributory. Social history: See social history for further information Family history: As per history of present illness and as reviewed below otherwise noncontributory. Physical exam: General: Well-developed and well-nourished 83-year-old female. Alert and oriented. Nontoxic appearing and in no acute distress. HEENT: Atraumatic, normocephalic, pupils equal and reactive bilaterally, negative for conjunctival pallor or scleral icterus, mucous membranes moist, TMs normal bilaterally, throat clear, neck supple, nontender, trachea midline. No drooling or trismus noted. No meningeal signs. No hot potato voice noted. Lungs: Clear to auscultation, breath sounds equal bilaterally, chest nontender. Heart: S1S2, regular rate and rhythm without overt murmur Abdomen: Soft, nondistended, nontender. Negative for masses or hepatosplenomegaly. Negative for costovertebral tenderness. Pelvis: Stable nontender. Skin: Intact, warm, dry. No lesions or rashes noted. Extremities: Atraumatic, moves all extremities per self without difficulty or deficits, negative for cords or calf pain. Neurovascular unremarkable. Neuro: Awake, alert, oriented. Cranial nerves II through XII unremarkable. Cerebellum unremarkable. Motor and sensory unremarkable throughout. Exam nonfocal. 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 No significant change in the right hydroureter nephrosis. Patient does have a UTI. She states that she would like to stay for IV fluids and antibiotics. Dr. Frausto was consulted on this case. He is agreeable for keeping her for treatment of her UTI. Diagnostics: CBC, CMP, UA, Lactic, Blood Culture, CT abd/pelvis Therapeutics: IV fluids, Rocephin Impression: UTI History of colon cancer Plan: Observation admission to Med/Surg Definitive disposition and diagnosis as appropriate pending reevaluation and review of above. - Related Data Allergies Allergy/AdvReac Type Severity Reaction Status Date / Time No Known Allergies Allergy Verified 01/30/19 15:56 Home Meds: Home Meds Cholecalciferol (Vitamin D3) [Vitamin D3] 1,000 units CHEW DAILY 09/10/16 [ History] Cyanocobalamin (Vitamin B12) [Vitamin B12] 500 mcg PO DAILY 09/10/16 [History] Losartan Potassium 25 mg PO QAM 09/10/16 [History] atorvaSTATin Calcium [Atorvastatin Calcium] 10 mg PO DAILY 09/10/16 [History] metFORMIN HCl [Metformin HCl] 500 mg PO BEDTIME 09/10/16 [History] Ascorbic Acid [Vitamin C] 1,000 mg PO DAILY 12/30/16 [History] Gabapentin [Neurontin] 100 mg PO BID 12/30/16 [History] Past Medical History HEENT History: Reports: Cataract Cardiovascular History: Reports: Heart Murmur, High Cholesterol, Hypertension Respiratory History: Reports: None Gastrointestinal History: Reports: PUD, Other (See Below) Other Gastrointestinal History: hx of colon cancer Genitourinary History: Reports: Other (See Below) Other Genitourinary History: current Urinary 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: Musculoskeletal History: Reports: None Neurological History: Reports: Other (See Below) Other Neuro History: hx of motion sickness Psychiatric History: Reports: None Endocrine/Metabolic History: Reports: Diabetes, Type II Hematologic History: Reports: Blood Transfusion(s) Other Hematologic History: blood transfusion before colon surgery Immunologic History: Reports: None Oncologic (Cancer) History: Reports: Colon Dermatologic History: Reports: None - Infectious Disease History Infectious Disease History: Reports: None - Past Surgical History Head Surgeries/Procedures: Reports: None HEENT Surgical History: Reports: Cataract Surgery Cardiovascular Surgical History: Reports: Vascular Surgery Other Cardiovascular Surgeries/Procedures: has a Port-a-Cath for Chemo Respiratory Surgical History: Reports: None GI Surgical History: Reports: Cholecystectomy, Colon Other GI Surgeries/Procedures: colon resection for cancer Female Surgical History: Reports: Hysterectomy Neurological Surgical History: Reports: None Musculoskeletal Surgical History: Reports: None Oncologic Surgical History: Reports: Other (See Below) Other Oncologic Surgeries/Procedures: hx of colon resection- currently receiving chemo Social & Family History - Family History Family Medical History: Unobtainable - Caffeine Use Caffeine Use: Reports: Coffee, Tea ED ROS GENERAL - Review of Systems Review Of Systems: ROS reveals no pertinent complaints other than HPI. ED EXAM, GENERAL - Physical Exam Exam: See Below (See dictation) Course - Vital Signs Last Recorded V/S: Last Vital Signs Temp 101.5 F H 01/30/19 18:07 Pulse 106 H 01/30/19 17:35 Resp 20 01/30/19 17:35 BP 141/73 H 01/30/19 17:35 Pulse Ox 94 L 01/30/19 17:35 - Orders/Labs/Meds Orders: Active Orders 24 hr Category Date Time Status Admission Status [Patient Status] [ADT] Stat ADT 01/30/19 18:14 Ordered CULTURE BLOOD [BC] Stat Lab 01/30/19 16:20 Received CULTURE BLOOD [BC] Stat Lab 01/30/19 16:42 Results CULTURE URINE [RM] Stat Lab 01/30/19 16:20 Received Blood Culture x2 Reflex Set [OM.PC] Stat Oth 01/30/19 15:57 Ordered Labs: Laboratory Tests 01/30/19 01/30/19 01/30/19 Range/Units 16:20 16:20 16:20 WBC 8.33 (4.0-11.0) K/uL RBC 3.95 L (4.30-5.90) M/uL Hgb 11.7 L (12.0-16.0) g/dL Hct 36.4 (36.0-46.0) % MCV 92.2 (80.0-98.0) fL MCH 29.6 (27.0-32.0) pg MCHC 32.1 (31.0-37.0) g/dL RDW Std Deviation 50.3 (28.0-62.0) fl RDW Coeff of Tiara 15 (11.0-15.0) % Plt Count 259 (150-400) K/uL MPV 9.00 (7.40-12.00) fL Neut % (Auto) 73.6 (48.0-80.0) % Lymph % (Auto) 16.7 (16.0-40.0) % [place] % (Auto) 9.6 (0.0-15.0) % Eos % (Auto) 0.1 (0.0-7.0) % Baso % (Auto) 0.0 (0.0-1.5) % Neut # (Auto) 6.1 H (1.4-5.7) K/uL Lymph # (Auto) 1.4 (0.6-2.4) K/uL [place] # (Auto) 0.8 (0.0-0.8) K/uL Eos # (Auto) 0.0 (0.0-0.7) K/uL Baso # (Auto) 0.0 (0.0-0.1) K/uL Nucleated RBC % 0.0 /100WBC Nucleated RBCs # 0 K/uL Lactate 1.7 (0.20-2.00) mmol/L Sodium (136-145) mmol/L Potassium (3.5-5.1) mmol/L Chloride (98-107) mmol/L Carbon Dioxide (21.0-32.0) mmol/L BUN (7.0-18.0) mg/dL Creatinine (0.6-1.0) mg/dL Est Cr Clr Drug Dosing mL/min Estimated GFR (MDRD) ml/min Glucose (74-106) mg/dL Calcium (8.5-10.1) mg/dL Total Bilirubin (0.2-1.0) mg/dL AST (15-37) IU/L ALT (14-63) IU/L Alkaline Phosphatase (46-116) U/L Total Protein (6.4-8.2) g/dL Albumin (3.4-5.0) g/dL Globulin (2.6-4.0) g/dL Albumin/Globulin Ratio (0.9-1.6) Urine Color YELLOW Urine Appearance CLOUDY Urine pH 5.5 (5.0-8.0) Ur Specific [place] 1.020 (1.001-1.035) Urine Protein 30 H (NEGATIVE) mg/dL Urine Glucose (UA) NEGATIVE (NEGATIVE) mg/dL Urine Ketones NEGATIVE (NEGATIVE) mg/dL Urine Occult Blood LARGE H (NEGATIVE) Urine Nitrite NEGATIVE (NEGATIVE) Urine Bilirubin NEGATIVE (NEGATIVE) Urine Urobilinogen 0.2 (<2.0) EU/dL Ur Leukocyte Esterase MODERATE H (NEGATIVE) Urine RBC 2-4 (0-2/HPF) Urine WBC TO NUMEROU (0-5/HPF) Ur Epithelial Cells FEW (NONE-FEW) Urine Bacteria 2+ H (NEGATIVE) 01/30/19 Range/Units 16:20 WBC (4.0-11.0) K/uL RBC (4.30-5.90) M/uL Hgb (12.0-16.0) g/dL Hct (36.0-46.0) % MCV (80.0-98.0) fL MCH (27.0-32.0) pg MCHC (31.0-37.0) g/dL RDW Std Deviation (28.0-62.0) fl RDW Coeff of [place] (11.0-15.0) % Plt Count (150-400) K/uL MPV (7.40-12.00) fL Neut % (Auto) (48.0-80.0) % Lymph % (Auto) (16.0-40.0) % [place] % (Auto) (0.0-15.0) % Eos % (Auto) (0.0-7.0) % Baso % (Auto) (0.0-1.5) % Neut # (Auto) (1.4-5.7) K/uL Lymph # (Auto) (0.6-2.4) K/uL [place] # (Auto) (0.0-0.8) K/uL Eos # (Auto) (0.0-0.7) K/uL Baso # (Auto) (0.0-0.1) K/uL Nucleated RBC % /100WBC Nucleated RBCs # K/uL Lactate (0.20-2.00) mmol/L Sodium 139 (136-145) mmol/L Potassium 3.5 (3.5-5.1) mmol/L Chloride 100 (98-107) mmol/L Carbon Dioxide 27.8 (21.0-32.0) mmol/L BUN 15 (7.0-18.0) mg/dL Creatinine 1.2 H (0.6-1.0) mg/dL Est Cr Clr Drug Dosing 27.11 mL/min Estimated GFR (MDRD) 42.7 ml/min Glucose 197 H (74-106) mg/dL Calcium 9.1 (8.5-10.1) mg/dL Total Bilirubin 0.4 (0.2-1.0) mg/dL AST 17 (15-37) IU/L ALT 22 (14-63) IU/L Alkaline Phosphatase 73 (46-116) U/L Total Protein 8.0 (6.4-8.2) g/dL Albumin 3.1 L (3.4-5.0) g/dL Globulin 4.9 H (2.6-4.0) g/dL Albumin/Globulin Ratio 0.6 L (0.9-1.6) Urine Color Urine Appearance Urine pH (5.0-8.0) Ur Specific [place] (1.001-1.035) Urine Protein (NEGATIVE) mg/dL Urine Glucose (UA) (NEGATIVE) mg/dL Urine Ketones (NEGATIVE) mg/dL Urine Occult Blood (NEGATIVE) Urine Nitrite (NEGATIVE) Urine Bilirubin (NEGATIVE) Urine Urobilinogen (<2.0) EU/dL Ur Leukocyte Esterase (NEGATIVE) Urine RBC (0-2/HPF) Urine WBC (0-5/HPF) Ur Epithelial Cells (NONE-FEW) Urine Bacteria (NEGATIVE) Meds: Medications Discontinued Medications Generic Name Dose Route Start Last Admin Trade Name Freq PRN Reason Stop Dose Admin Acetaminophen 650 mg 01/30/19 17:38 01/30/19 18:07 Tylenol PO 01/30/19 17:39 650 mg NOW ONE Administration Sodium Chloride 1,000 mls @ 999 mls/hr 01/30/19 15:57 01/30/19 16:25 Normal Saline IV 01/30/19 16:57 999 mls/hr STAT ONE Administration Ceftriaxone Sodium/Dextrose 1 50 mls @ 100 mls/hr 01/30/19 17:13 01/30/19 17: 34 gm/ Premix IV 01/30/19 17:42 100 mls/hr ONETIME ONE Administration Departure - Departure Time of Disposition: 18:48 Disposition: Refer to Observation Clinical Impression: History of colon cancer UTI (urinary tract infection) Qualifiers: Urinary tract infection type: acute cystitis Hematuria presence: with hematuria Qualified Code(s): N30.01 - Acute cystitis with hematuria - Discharge Information Referrals: Jimmie Giraldo MD [Primary Care Provider] - - My Orders Last 24 Hours: My Active Orders 01/30/19 15:57 Blood Culture x2 Reflex Set [OM.PC] Stat 01/30/19 16:20 CULTURE BLOOD [BC] Stat CULTURE URINE [RM] Stat 01/30/19 16:42 CULTURE BLOOD [BC] Stat 01/30/19 18:14 Admission Status [Patient Status] [ADT] Stat - Assessment/Plan Last 24 Hours: My Active Orders 01/30/19 15:57 Blood Culture x2 Reflex Set [OM.PC] Stat 01/30/19 16:20 CULTURE BLOOD [BC] Stat CULTURE URINE [RM] Stat 01/30/19 16:42 CULTURE BLOOD [BC] Stat 01/30/19 18:14 Admission Status [Patient Status] [ADT] Stat
[2019-01-30] MEDS ORDERED: Sodium Chloride 0.9% 1,000 ML IV ONE ×2 (15:57→19:40)
--- NOTE | 2019-01-30 16:49 | CR ---
Indication: Shortness breath. Technique: Single AP portable view of the chest was obtained. Comparison: January 05, 2017. Findings: A left-sided Port-A-Cath is identified. Heart is normal in size. The lungs are clear. No infiltrate, pleural effusion, pneumothorax identified. Impression: No acute cardiopulmonary process. Dictated by Thais Silverio MD @ Jan 30 2019 4:47PM Signed by Dr. Thais Silverio @ Jan 30 2019 4:48PM
[2019-01-30] MEDS ORDERED: cefTRIAXone 1 GM in Premix Bag 1 BAG IV ONE (17:13)
[2019-01-30 17:18] LABS: CARBON DIOXIDE,CO2 27.8 mmol/L (21.0-32.0); POTASSIUM,K 3.5 mmol/L (3.5-5.1)
[2019-01-30] MEDS ORDERED: Acetaminophen 325 MG Tab PO ONE (17:38)
--- NOTE | 2019-01-30 18:43 | CT ---
INDICATION: Left lower quadrant pain. Fever. History of colon cancer. CT ABDOMEN AND PELVIS WITHOUT CONTRAST TECHNIQUE: Multidetector CT imaging was performed through the abdomen and pelvis without intravenous contrast administration. Coronal and sagittal reconstructions were generated. COMPARISON: 12/14/2018 CT abdomen and pelvis. FINDINGS: Lower chest: Mild bibasilar lung atelectasis or scarring, similar to the previous exam. Liver: Unchanged small cyst in the right hepatic lobe. Gallbladder and bile ducts: Status post cholecystectomy, as before. No biliary dilation identified. Pancreas: Multiple punctate calcifications within the pancreas suggesting chronic pancreatitis. Spleen: Normal. Adrenals: No nodules or masses. Kidneys, ureters, and urinary bladder: No urinary tract stones identified. No significant change in right ureteral stent, nor in [id number] dilation of the intrarenal collecting system of the right kidney and the proximal/mid right ureter. Relative collapse of the distal right ureter. No left hydronephrosis. Nondistended urinary bladder. No bladder mass or definite wall thickening. Gastrointestinal tract: Normal caliber bowel without evidence of obstruction. Status post right hemicolectomy, as before. Vascular structures: Normal caliber abdominal aorta with mild atherosclerotic calcifications. Peritoneum: New omental fat stranding in the anterior left upper quadrant and left midabdomen. No free fluid or free air identified. Lymph nodes: No significant change in multiple mildly enlarged retroperitoneal lymph nodes in the periaortic region and along the pelvic sidewalls. Reproductive organs: Status post hysterectomy. Bones: Spinal degenerative changes. IMPRESSION: 1. 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 2. No significant change in right hydroureteronephrosis. Unchanged right ureteral stent. 3. Status post right hemicolectomy, as before. 4. Stable retroperitoneal and pelvic lymphadenopathy. 5. Nonacute additional findings as detailed above. KINSEY VILLEGAS MD [employer] [employer] Dictated by Grant Villegas MD @ 01/30/2019 6:40:21 PM Dictated by: Grant Villegas MD @ 01/30/2019 18:42:12 (Electronically Signed)
[2019-01-30] MEDS ORDERED: Ibuprofen 800 MG Tab PO ONE (19:40)
[2019-01-30] MEDS ORDERED: Acetaminophen 325 MG Tab PO PRN (22:27)
[2019-01-30] MEDS ORDERED: Piperacillin/Tazobactam 3.375 GM in Sodium Chloride 0.9% 50 ML IV SCH (22:30)
[2019-01-30] MEDS: Ondansetron 4 MG/2 ML SDV IVPUSH SCH (22:46)
--- NOTE | 2019-01-30 22:46 | PCM.HP.2 ---
H&P History of Present Illness - General Date of Service: 01/30/19 Admit Problem/Dx: Admission Diagnosis/Problem Admission Diagnosis/Problem UTI (urinary tract infection), uncomplicated - History of Present Illness Initial Comments - Free Text/Narative: 83 yo female with pmh of DM and stage 4 colon cancer s/p hemicolectomy. She has had recurrent UTIs and is s/p right ureteral stent due to obstruction. She presents to the ER today with complaints of fever. She denies any pain or shortness of breath. She was told she would have to have another urethral stent replaced in February but she is unsure if she would want another procedure due to the pain of the first stenting. headache Pain Score (Numeric/FACES): 7 - Related Data Allergies/Adverse Reactions: Allergies Allergy/AdvReac Type Severity Reaction Status Date / Time No Known Allergies Allergy Verified 01/30/19 20:27 Home Medications: Home Meds Cholecalciferol (Vitamin D3) [Vitamin D3] 1,000 units CHEW DAILY 09/10/16 [ History] Cyanocobalamin (Vitamin B12) [Vitamin B12] 500 mcg PO DAILY 09/10/16 [History] Losartan Potassium 25 mg PO QAM 09/10/16 [History] atorvaSTATin Calcium [Atorvastatin Calcium] 10 mg PO BEDTIME 09/10/16 [History] metFORMIN HCl [Metformin HCl] 500 mg PO BEDTIME 09/10/16 [History] Ascorbic Acid [Vitamin C] 1,000 mg PO DAILY 12/30/16 [History] Gabapentin [Neurontin] 100 mg PO BID 12/30/16 [History] cephALEXin [Keflex] 500 mg PO Q8H #30 cap 02/03/19 [Rx] Past Medical History HEENT History: Reports: Cataract Cardiovascular History: Reports: Heart Murmur, High Cholesterol, Hypertension Respiratory History: Reports: None Gastrointestinal History: Reports: PUD, Other (See Below) Other Gastrointestinal History: hx of colon cancer Genitourinary History: Reports: Other (See Below) Other Genitourinary History: current Urinary obstruction GAS DISPENSER History: Reports: Musculoskeletal History: Reports: None Neurological History: Reports: Other (See Below) Other Neuro History: hx of motion sickness Psychiatric History: Reports: None Endocrine/Metabolic History: Reports: Diabetes, Type II Hematologic History: Reports: Blood Transfusion(s) Other Hematologic History: blood transfusion before colon surgery Immunologic History: Reports: None Oncologic (Cancer) History: Reports: Colon Dermatologic History: Reports: None - Infectious Disease History Infectious Disease History: Reports: None - Past Surgical History Head Surgeries/Procedures: Reports: None HEENT Surgical History: Reports: Cataract Surgery Cardiovascular Surgical History: Reports: Vascular Surgery Other Cardiovascular Surgeries/Procedures: has a Port-a-Cath for Chemo Respiratory Surgical History: Reports: None GI Surgical History: Reports: Cholecystectomy, Colon Other GI Surgeries/Procedures: colon resection for cancer Female Surgical History: Reports: Hysterectomy Neurological Surgical History: Reports: None Musculoskeletal Surgical History: Reports: None Oncologic Surgical History: Reports: Other (See Below) Other Oncologic Surgeries/Procedures: hx of colon resection- currently receiving chemo Social & Family History - Family History Family Medical History: Unobtainable - Tobacco Use Smoking Status *Q: Former Smoker Used Tobacco, but Quit: Yes Month/Year Tobacco Last Used: 1958 Second Hand Smoke Exposure: No - Caffeine Use Caffeine Use: Reports: None - Recreational Drug Use Recreational Drug Use: No H&P Review of Systems - Review of Systems: Review Of Systems: ROS reveals no pertinent complaints other than HPI. Exam - Exam Exam: See Below - Vital Signs Vital Signs: Last Vital Signs Temp 36.6 C 01/30/19 20:23 Pulse 97 01/30/19 20:23 Resp 16 01/30/19 20:23 BP 142/63 H 01/30/19 20:23 Pulse Ox 92 L 01/30/19 20:23 Weight: 66.315 kg - Exam General: Alert, Oriented HEENT: Mucosa Moist & [place] Lungs: Clear to Auscultation, Normal Respiratory Effort GI/Abdominal Exam: Soft, Non-Tender Extremities: Non-Tender, No Pedal Edema - Patient Data Lab Results Last 24 hrs: Laboratory Results - last 24 hr 01/30/19 01/30/19 01/30/19 Range/Units 16:20 16:20 16:20 WBC 8.33 (4.0-11.0) K/uL RBC 3.95 L (4.30-5.90) M/uL Hgb 11.7 L (12.0-16.0) g/dL Hct 36.4 (36.0-46.0) % MCV 92.2 (80.0-98.0) fL MCH 29.6 (27.0-32.0) pg MCHC 32.1 (31.0-37.0) g/dL RDW Std Deviation 50.3 (28.0-62.0) fl RDW Coeff of Tiara 15 (11.0-15.0) % Plt Count 259 (150-400) K/uL MPV 9.00 (7.40-12.00) fL Neut % (Auto) 73.6 (48.0-80.0) % Lymph % (Auto) 16.7 (16.0-40.0) % [place] % (Auto) 9.6 (0.0-15.0) % Eos % (Auto) 0.1 (0.0-7.0) % Baso % (Auto) 0.0 (0.0-1.5) % Neut # (Auto) 6.1 H (1.4-5.7) K/uL Lymph # (Auto) 1.4 (0.6-2.4) K/uL [place] # (Auto) 0.8 (0.0-0.8) K/uL Eos # (Auto) 0.0 (0.0-0.7) K/uL Baso # (Auto) 0.0 (0.0-0.1) K/uL Nucleated RBC % 0.0 /100WBC Nucleated RBCs # 0 K/uL Lactate 1.7 (0.20-2.00) mmol/L Sodium (136-145) mmol/L Potassium (3.5-5.1) mmol/L Chloride (98-107) mmol/L Carbon Dioxide (21.0-32.0) mmol/L BUN (7.0-18.0) mg/dL Creatinine (0.6-1.0) mg/dL Est Cr Clr Drug Dosing mL/min Estimated GFR (MDRD) ml/min Glucose (74-106) mg/dL POC Glucose (60-110) mg/dL Calcium (8.5-10.1) mg/dL Total Bilirubin (0.2-1.0) mg/dL AST (15-37) IU/L ALT (14-63) IU/L Alkaline Phosphatase (46-116) U/L Total Protein (6.4-8.2) g/dL Albumin (3.4-5.0) g/dL Globulin (2.6-4.0) g/dL Albumin/Globulin Ratio (0.9-1.6) Urine Color YELLOW Urine Appearance CLOUDY Urine pH 5.5 (5.0-8.0) Ur Specific [place] 1.020 (1.001-1.035) Urine Protein 30 H (NEGATIVE) mg/dL Urine Glucose (UA) NEGATIVE (NEGATIVE) mg/dL Urine Ketones NEGATIVE (NEGATIVE) mg/dL Urine Occult Blood LARGE H (NEGATIVE) Urine Nitrite NEGATIVE (NEGATIVE) Urine Bilirubin NEGATIVE (NEGATIVE) Urine Urobilinogen 0.2 (<2.0) EU/dL Ur Leukocyte Esterase MODERATE H (NEGATIVE) Urine RBC 2-4 (0-2/HPF) Urine WBC TO NUMEROU (0-5/HPF) Ur Epithelial Cells FEW (NONE-FEW) Urine Bacteria 2+ H (NEGATIVE) 01/30/19 01/30/19 Range/Units 16:20 21:36 WBC (4.0-11.0) K/uL RBC (4.30-5.90) M/uL Hgb (12.0-16.0) g/dL Hct (36.0-46.0) % MCV (80.0-98.0) fL MCH (27.0-32.0) pg MCHC (31.0-37.0) g/dL RDW Std Deviation (28.0-62.0) fl RDW Coeff of [place] (11.0-15.0) % Plt Count (150-400) K/uL MPV (7.40-12.00) fL Neut % (Auto) (48.0-80.0) % Lymph % (Auto) (16.0-40.0) % [place] % (Auto) (0.0-15.0) % Eos % (Auto) (0.0-7.0) % Baso % (Auto) (0.0-1.5) % Neut # (Auto) (1.4-5.7) K/uL Lymph # (Auto) (0.6-2.4) K/uL [place] # (Auto) (0.0-0.8) K/uL Eos # (Auto) (0.0-0.7) K/uL Baso # (Auto) (0.0-0.1) K/uL Nucleated RBC % /100WBC Nucleated RBCs # K/uL Lactate (0.20-2.00) mmol/L Sodium 139 (136-145) mmol/L Potassium 3.5 (3.5-5.1) mmol/L Chloride 100 (98-107) mmol/L Carbon Dioxide 27.8 (21.0-32.0) mmol/L BUN 15 (7.0-18.0) mg/dL Creatinine 1.2 H (0.6-1.0) mg/dL Est Cr Clr Drug Dosing 27.11 mL/min Estimated GFR (MDRD) 42.7 ml/min Glucose 197 H (74-106) mg/dL POC Glucose 137 H (60-110) mg/dL Calcium 9.1 (8.5-10.1) mg/dL Total Bilirubin 0.4 (0.2-1.0) mg/dL AST 17 (15-37) IU/L ALT 22 (14-63) IU/L Alkaline Phosphatase 73 (46-116) U/L Total Protein 8.0 (6.4-8.2) g/dL Albumin 3.1 L (3.4-5.0) g/dL Globulin 4.9 H (2.6-4.0) g/dL Albumin/Globulin Ratio 0.6 L (0.9-1.6) Urine Color Urine Appearance Urine pH (5.0-8.0) Ur Specific [place] (1.001-1.035) Urine Protein (NEGATIVE) mg/dL Urine Glucose (UA) (NEGATIVE) mg/dL Urine Ketones (NEGATIVE) mg/dL Urine Occult Blood (NEGATIVE) Urine Nitrite (NEGATIVE) Urine Bilirubin (NEGATIVE) Urine Urobilinogen (<2.0) EU/dL Ur Leukocyte Esterase (NEGATIVE) Urine RBC (0-2/HPF) Urine WBC (0-5/HPF) Ur Epithelial Cells (NONE-FEW) Urine Bacteria (NEGATIVE) Result Diagrams: 02/02/19 04:40 02/02/19 04:40 Antoine Results Last 24 hrs: Microbiology 01/30/19 16:25 Influenza Type A Antigen Screen - Final Nasopharyngeal Swab NEGATIVE INFLUENZA A VIRUS AG REFERENCE RANGE: NEGATIVE Influenza Type B Antigen Screen - Final NEGATIVE INFLUENZA B VIRUS AG REFERENCE RANGE: NEGATIVE 01/30/19 16:42 Anaerobic Blood Culture - Final Blood - Venous - Lab Draw Problem List Initiated/Reviewed/Updated: Yes Orders Last 24hrs: Active Orders 24 hr Category Date Time Status Admission Status [Patient Status] [ADT] Stat ADT 01/30/19 18:14 Active Accu Check [Blood Glucose Check, Bedside] [RC] TIDAC Care 01/30/19 22:39 Active Antiembolic Devices [RC] PER UNIT ROUTINE Care 01/30/19 22:29 Active Glucose [Blood Glucose Check, Bedside] [RC] ONETIME Care 01/30/19 19:40 Active Oxygen Therapy [RC] PRN Care 01/30/19 22:27 Active Up ad Jessica [RC] ASDIRECTED Care 01/30/19 22:27 Active VTE/DVT Education [RC] PER UNIT ROUTINE Care 01/30/19 22:27 Active Vital Signs [RC] Q4H Care 01/30/19 22:27 Active [employer] Diet [DIET] Diet 01/30/19 Breakfast Active CBC WITH AUTO DIFF [HEME] AM Lab 01/31/19 05:11 Ordered COMPREHENSIVE METABOLIC PN,CMP [CHEM] AM Lab 01/31/19 05:11 Ordered CULTURE BLOOD [BC] Stat Lab 01/30/19 16:20 Received CULTURE BLOOD [BC] Stat Lab 01/30/19 16:42 Results CULTURE URINE [RM] Stat Lab 01/30/19 16:20 Received Acetaminophen [Tylenol] Med 01/30/19 22:27 Active 650 mg PO Q6H PRN Gabapentin [Neurontin] Med 01/31/19 09:00 Active 100 mg PO BID Heparin Sodium Med 01/30/19 22:30 Active 5,000 units SUBCUT Q8H Insulin Aspart [NovoLOG] Med 01/31/19 07:30 Ordered See Protocol SUBCUT TIDAC Ondansetron [Zofran] Med 01/30/19 22:30 Active 4 mg IVPUSH Q4H Piperacillin/Tazobactam [Zosyn] 2.25 gm Med 01/30/19 22:45 Active Sodium Chloride 0.9% [Normal Saline] 50 ml IV Q6H Sodium Chloride 0.9% [Normal Saline] 1,000 ml Med 01/30/19 19:40 Active IV STAT atorvaSTATin [Lipitor] Med 01/31/19 21:00 Active 10 mg PO BEDTIME Blood Culture x2 Reflex Set [OM.PC] Stat Oth 01/30/19 15:57 Ordered Sequential Compression Device [OM.PC] Per Unit Routine Oth 01/30/19 22:28 Ordered Resuscitation Status Routine Resus Stat 01/30/19 22:27 Ordered Medication Orders Acetaminophen (Tylenol) 650 mg PO Q6H PRN PRN Reason: Pain (Mild 1-3)/fever Atorvastatin Calcium (Lipitor) 10 mg PO BEDTIME SHERIE Gabapentin (Neurontin) 100 mg PO BID SHERIE Heparin Sodium (Porcine) (Heparin Sodium) 5,000 units SUBCUT Q8H SHERIE Sodium Chloride (Normal Saline) 1,000 mls @ 125 mls/hr IV STAT ONE Stop: 01/31/19 03:39 Last Admin: 01/30/19 20:39 Dose: 125 mls/hr Piperacillin Sod/Tazobactam (Sod 2.25 gm/ Sodium Chloride) 50 mls @ 100 mls/hr IV Q6H SHERIE Insulin Aspart (Novolog) 0 unit SUBCUT TIDAC SHERIE; Protocol Ondansetron HCl (Zofran) 4 mg IVPUSH Q4H SHERIE Assessment/Plan Comment:: 83 yo female admitted for pyelonephritis. We will treat with Zosyn.
[2019-01-30] MEDS: Heparin Sodium 5,000 Units/ML Vial SUBCUT SCH (22:47)
[2019-01-30] MEDS: Piperacillin/Tazobactam 2.25 GM in Sodium Chloride 0.9% 50 ML IV SCH (22:48)
[2019-01-31] MEDS: Ondansetron 4 MG/2 ML SDV IVPUSH SCH ×6 (02:27→21:54)
[2019-01-31] MEDS: Piperacillin/Tazobactam 2.25 GM in Sodium Chloride 0.9% 50 ML IV SCH ×4 (05:35→21:54)
[2019-01-31] MEDS: Heparin Sodium 5,000 Units/ML Vial SUBCUT SCH ×3 (05:38→21:54)
[2019-01-31 07:04] LABS: CARBON DIOXIDE,CO2 25.9 mmol/L (21.0-32.0); POTASSIUM,K 3.5 mmol/L (3.5-5.1)
[2019-01-31] MEDS: Insulin Aspart 100 Units/ML 3 ML Pen SUBCUT SCH ×3 (08:37→17:22)
[2019-01-31] MEDS ORDERED: Gabapentin 100 MG Cap PO SCH (09:00)
[2019-01-31] MEDS: Acetaminophen 500 MG Tab PO PRN ×2 (09:52→17:22)
--- NOTE | 2019-01-31 10:47 | PCM.PN ---
- General Info Date of Service: 01/31/19 Admission Dx/Problem (Free Text): Admission Diagnosis/Problem Admission Diagnosis/Problem UTI (urinary tract infection), uncomplicated Subjective Update: Feeling improved today. No chest pain or SOB. Reports mild lower abdominal pain , but not tender to palpation. Reports mild diarrhea, but this is at baseline for her. Functional Status: Reports: Pain Controlled, Tolerating Diet, Ambulating, Urinating - Review of Systems General: Reports: Weakness, Fatigue HEENT: Reports: No Symptoms. Denies: Headaches, Sore Throat, Visual Changes Pulmonary: Reports: No Symptoms. Denies: Shortness of Breath Cardiovascular: Reports: No Symptoms. Denies: Chest Pain Gastrointestinal: Reports: Abdominal Pain (mild to lower abdomen), Diarrhea ( chronic). Denies: Decreased Appetite, Nausea, Vomiting Genitourinary: Reports: No Symptoms. Denies: Dysuria, Frequency, Burning Musculoskeletal: Reports: No Symptoms Skin: Reports: No Symptoms Neurological: Reports: No Symptoms Psychiatric: Reports: No Symptoms - Patient Data Vitals - Most Recent: Last Vital Signs Temp 98.2 F 01/31/19 08:27 Pulse 92 01/31/19 08:27 Resp 18 01/31/19 08:27 BP 139/69 01/31/19 08:27 Pulse Ox 92 L 01/31/19 08:27 Weight - Most Recent: 66.315 kg I&O - Last 24 Hours: Intake & Output 01/30/19 01/31/19 01/31/19 22:59 06:59 14:59 Intake Total 100 Output Total 600 Balance -500 Lab Results Last 24 Hours: Laboratory Results - last 24 hr 01/30/19 01/30/19 01/30/19 Range/Units 16:20 16:20 16:20 WBC 8.33 (4.0-11.0) K/uL RBC 3.95 L (4.30-5.90) M/uL Hgb 11.7 L (12.0-16.0) g/dL Hct 36.4 (36.0-46.0) % MCV 92.2 (80.0-98.0) fL MCH 29.6 (27.0-32.0) pg MCHC 32.1 (31.0-37.0) g/dL RDW Std Deviation 50.3 (28.0-62.0) fl RDW Coeff of [place] 15 (11.0-15.0) % Plt Count 259 (150-400) K/uL MPV 9.00 (7.40-12.00) fL Neut % (Auto) 73.6 (48.0-80.0) % Lymph % (Auto) 16.7 (16.0-40.0) % [place] % (Auto) 9.6 (0.0-15.0) % Eos % (Auto) 0.1 (0.0-7.0) % Baso % (Auto) 0.0 (0.0-1.5) % Neut # (Auto) 6.1 H (1.4-5.7) K/uL Lymph # (Auto) 1.4 (0.6-2.4) K/uL [place] # (Auto) 0.8 (0.0-0.8) K/uL Eos # (Auto) 0.0 (0.0-0.7) K/uL Baso # (Auto) 0.0 (0.0-0.1) K/uL Nucleated RBC % 0.0 /100WBC Nucleated RBCs # 0 K/uL Lactate 1.7 (0.20-2.00) mmol/L Sodium (136-145) mmol/L Potassium (3.5-5.1) mmol/L Chloride (98-107) mmol/L Carbon Dioxide (21.0-32.0) mmol/L BUN (7.0-18.0) mg/dL Creatinine (0.6-1.0) mg/dL Est Cr Clr Drug Dosing mL/min Estimated GFR (MDRD) ml/min Glucose (74-106) mg/dL POC Glucose (60-110) mg/dL Calcium (8.5-10.1) mg/dL Total Bilirubin (0.2-1.0) mg/dL AST (15-37) IU/L ALT (14-63) IU/L Alkaline Phosphatase (46-116) U/L Total Protein (6.4-8.2) g/dL Albumin (3.4-5.0) g/dL Globulin (2.6-4.0) g/dL Albumin/Globulin Ratio (0.9-1.6) Urine Color YELLOW Urine Appearance CLOUDY Urine pH 5.5 (5.0-8.0) Ur Specific [place] 1.020 (1.001-1.035) Urine Protein 30 H (NEGATIVE) mg/dL Urine Glucose (UA) NEGATIVE (NEGATIVE) mg/dL Urine Ketones NEGATIVE (NEGATIVE) mg/dL Urine Occult Blood LARGE H (NEGATIVE) Urine Nitrite NEGATIVE (NEGATIVE) Urine Bilirubin NEGATIVE (NEGATIVE) Urine Urobilinogen 0.2 (<2.0) EU/dL Ur Leukocyte Esterase MODERATE H (NEGATIVE) Urine RBC 2-4 (0-2/HPF) Urine WBC TO NUMEROU (0-5/HPF) Ur Epithelial Cells FEW (NONE-FEW) Urine Bacteria 2+ H (NEGATIVE) 01/30/19 01/30/19 01/31/19 Range/Units 16:20 21:36 05:45 WBC (4.0-11.0) K/uL RBC (4.30-5.90) M/uL Hgb (12.0-16.0) g/dL Hct (36.0-46.0) % MCV (80.0-98.0) fL MCH (27.0-32.0) pg MCHC (31.0-37.0) g/dL RDW Std Deviation (28.0-62.0) fl RDW Coeff of [place] (11.0-15.0) % Plt Count (150-400) K/uL MPV (7.40-12.00) fL Neut % (Auto) (48.0-80.0) % Lymph % (Auto) (16.0-40.0) % [place] % (Auto) (0.0-15.0) % Eos % (Auto) (0.0-7.0) % Baso % (Auto) (0.0-1.5) % Neut # (Auto) (1.4-5.7) K/uL Lymph # (Auto) (0.6-2.4) K/uL [place] # (Auto) (0.0-0.8) K/uL Eos # (Auto) (0.0-0.7) K/uL Baso # (Auto) (0.0-0.1) K/uL Nucleated RBC % /100WBC Nucleated RBCs # K/uL Lactate (0.20-2.00) mmol/L Sodium 139 (136-145) mmol/L Potassium 3.5 (3.5-5.1) mmol/L Chloride 100 (98-107) mmol/L Carbon Dioxide 27.8 (21.0-32.0) mmol/L BUN 15 (7.0-18.0) mg/dL Creatinine 1.2 H (0.6-1.0) mg/dL Est Cr Clr Drug Dosing 27.11 mL/min Estimated GFR (MDRD) 42.7 ml/min Glucose 197 H (74-106) mg/dL POC Glucose 137 H 138 H (60-110) mg/dL Calcium 9.1 (8.5-10.1) mg/dL Total Bilirubin 0.4 (0.2-1.0) mg/dL AST 17 (15-37) IU/L ALT 22 (14-63) IU/L Alkaline Phosphatase 73 (46-116) U/L Total Protein 8.0 (6.4-8.2) g/dL Albumin 3.1 L (3.4-5.0) g/dL Globulin 4.9 H (2.6-4.0) g/dL Albumin/Globulin Ratio 0.6 L (0.9-1.6) Urine Color Urine Appearance Urine pH (5.0-8.0) Ur Specific [place] (1.001-1.035) Urine Protein (NEGATIVE) mg/dL Urine Glucose (UA) (NEGATIVE) mg/dL Urine Ketones (NEGATIVE) mg/dL Urine Occult Blood (NEGATIVE) Urine Nitrite (NEGATIVE) Urine Bilirubin (NEGATIVE) Urine Urobilinogen (<2.0) EU/dL Ur Leukocyte Esterase (NEGATIVE) Urine RBC (0-2/HPF) Urine WBC (0-5/HPF) Ur Epithelial Cells (NONE-FEW) Urine Bacteria (NEGATIVE) 01/31/19 01/31/19 Range/Units 06:04 06:04 WBC 5.77 (4.0-11.0) K/uL RBC 3.65 L (4.30-5.90) M/uL Hgb 10.5 L (12.0-16.0) g/dL Hct 33.8 L (36.0-46.0) % MCV 92.6 (80.0-98.0) fL MCH 28.8 (27.0-32.0) pg MCHC 31.1 (31.0-37.0) g/dL RDW Std Deviation 50.5 (28.0-62.0) fl RDW Coeff of [place] 15 (11.0-15.0) % Plt Count 216 (150-400) K/uL MPV 8.70 (7.40-12.00) fL Neut % (Auto) 70.5 (48.0-80.0) % Lymph % (Auto) 17.5 (16.0-40.0) % [place] % (Auto) 11.1 (0.0-15.0) % Eos % (Auto) 0.9 (0.0-7.0) % Baso % (Auto) 0.0 (0.0-1.5) % Neut # (Auto) 4.1 (1.4-5.7) K/uL Lymph # (Auto) 1.0 (0.6-2.4) K/uL [place] # (Auto) 0.6 (0.0-0.8) K/uL Eos # (Auto) 0.1 (0.0-0.7) K/uL Baso # (Auto) 0.0 (0.0-0.1) K/uL Nucleated RBC % 0.0 /100WBC Nucleated RBCs # 0 K/uL Lactate (0.20-2.00) mmol/L Sodium 142 (136-145) mmol/L Potassium 3.5 (3.5-5.1) mmol/L Chloride 106 (98-107) mmol/L Carbon Dioxide 25.9 (21.0-32.0) mmol/L BUN 14 (7.0-18.0) mg/dL Creatinine 1.0 (0.6-1.0) mg/dL Est Cr Clr Drug Dosing 32.53 mL/min Estimated GFR (MDRD) 52.7 ml/min Glucose 148 H (74-106) mg/dL POC Glucose (60-110) mg/dL Calcium 8.2 L (8.5-10.1) mg/dL Total Bilirubin 0.5 (0.2-1.0) mg/dL AST 18 (15-37) IU/L ALT 20 (14-63) IU/L Alkaline Phosphatase 56 (46-116) U/L Total Protein 6.7 (6.4-8.2) g/dL Albumin 2.6 L (3.4-5.0) g/dL Globulin 4.1 H (2.6-4.0) g/dL Albumin/Globulin Ratio 0.6 L (0.9-1.6) Urine Color Urine Appearance Urine pH (5.0-8.0) Ur Specific [place] (1.001-1.035) Urine Protein (NEGATIVE) mg/dL Urine Glucose (UA) (NEGATIVE) mg/dL Urine Ketones (NEGATIVE) mg/dL Urine Occult Blood (NEGATIVE) Urine Nitrite (NEGATIVE) Urine Bilirubin (NEGATIVE) Urine Urobilinogen (<2.0) EU/dL Ur Leukocyte Esterase (NEGATIVE) Urine RBC (0-2/HPF) Urine WBC (0-5/HPF) Ur Epithelial Cells (NONE-FEW) Urine Bacteria (NEGATIVE) Antoine Results Last 24 Hours: Microbiology 01/30/19 16:25 Influenza Type A Antigen Screen - Final Nasopharyngeal Swab NEGATIVE INFLUENZA A VIRUS AG REFERENCE RANGE: NEGATIVE Influenza Type B Antigen Screen - Final NEGATIVE INFLUENZA B VIRUS AG REFERENCE RANGE: NEGATIVE 01/30/19 16:42 Anaerobic Blood Culture - Final Blood - Venous - Lab Draw Med Orders - Current: Current Medications Acetaminophen (Tylenol Extra Strength) 1,000 mg PO Q6H PRN PRN Reason: Pain Last Admin: 01/31/19 09:52 Dose: 1,000 mg Atorvastatin Calcium (Lipitor) 10 mg PO BEDTIME [facility] Gabapentin (Neurontin) 100 mg PO BID [facility] Last Admin: 01/31/19 09:51 Dose: 100 mg Heparin Sodium (Porcine) (Heparin Sodium) 5,000 units SUBCUT Q8H [facility] Last Admin: 01/31/19 05:38 Dose: 5,000 units Piperacillin Sod/Tazobactam (Sod 2.25 gm/ Sodium Chloride) 50 mls @ 100 mls/hr IV Q6H [facility] Last Admin: 01/31/19 10:41 Dose: 100 mls/hr Insulin Aspart (Novolog) 0 unit SUBCUT TIDAC [facility]; Protocol Last Admin: 01/31/19 08:37 Dose: Not Given Ondansetron HCl (Zofran) 4 mg IVPUSH Q4H [facility] Last Admin: 01/31/19 10:41 Dose: 4 mg Discontinued Medications Acetaminophen (Tylenol) 650 mg PO NOW ONE Stop: 01/30/19 17:39 Last Admin: 01/30/19 18:07 Dose: 650 mg Acetaminophen (Tylenol) 650 mg PO Q6H PRN PRN Reason: Pain (Mild 1-3)/fever Sodium Chloride (Normal Saline) 1,000 mls @ 999 mls/hr IV STAT ONE Stop: 01/30/19 16:57 Last Admin: 01/30/19 16:25 Dose: 999 mls/hr Ceftriaxone Sodium/Dextrose 1 (gm/ Premix) 50 mls @ 100 mls/hr IV ONETIME ONE Stop: 01/30/19 17:42 Last Admin: 01/30/19 17:34 Dose: 100 mls/hr Sodium Chloride (Normal Saline) 1,000 mls @ 125 mls/hr IV STAT ONE Stop: 01/31/19 03:39 Last Admin: 01/30/19 20:39 Dose: 125 mls/hr Piperacillin Sod/Tazobactam (Sod 3.375 gm/ Sodium Chloride) 50 mls @ 100 mls/ hr IV Q6H [facility]ERIE Last Admin: 01/30/19 22:40 Dose: Not Given Ibuprofen (Motrin) 800 mg PO ONETIME ONE Stop: 01/30/19 19:41 Last Admin: 01/30/19 20:40 Dose: 800 mg - Exam General: Alert, Oriented, Cooperative, No Acute Distress Lungs: Clear to Auscultation, Normal Respiratory Effort Cardiovascular: Regular Rate, Regular Rhythm GI/Abdominal Exam: Normal Bowel Sounds, Soft, Non-Tender Extremities: Normal Inspection, Normal Range of Motion, Non-Tender, No Pedal Edema Neurological: No New Focal Deficit Psy/Mental Status: Alert, Normal Affect, Normal Mood - Problem List & Annotations (1) UTI (urinary tract infection) SNOMED Code(s): 63432403 Code(s): N39.0 - URINARY TRACT INFECTION, SITE NOT SPECIFIED Status: Acute Current Visit: Yes Qualifiers: Urinary tract infection type: acute cystitis Hematuria presence: with hematuria Qualified Code(s): N30.01 - Acute cystitis with hematuria (2) History of colon cancer SNOMED Code(s): 946618168 Code(s): Z85.038 - PERSONAL HISTORY OF MALIGNANT NEOPLASM OF LARGE INTESTINE Status: Acute Current Visit: Yes - Problem List Review Problem List Initiated/Reviewed/Updated: Yes - My Orders Last 24 Hours: My Active Orders 01/31/19 09:30 Acetaminophen [Tylenol Extra Strength] 1,000 mg PO Q6H PRN - Plan Plan:: This 83 year old female admitted with fevers and UTI 1. UTI: BC and UC pending. Will continue Zosyn for now. No fevers since admission. No leukocytosis. Patient eager to go home, but would like to see afebrile for 24 hours and have culture results. She was counseled on this and agrees with staying. 2. HTN: Hold Losartan for now, BP borderline. Monitor 3. Hx stage 4 colon CA: CT reveals possible carcinomatosis. Called Dr Brewster, Oncology, awaiting call back. VTE prophylaxis: heparin. Dispo: 1-2 days pending improvement
[2019-01-31] MEDS ORDERED: Loperamide 2 MG Cap PO PRN (19:24)
[2019-01-31] MEDS: Gabapentin 100 MG Cap PO SCH (20:35)
[2019-01-31] MEDS: atorvaSTATin 10 MG Tab PO SCH (20:36)
[2019-02-01] MEDS: Ondansetron 4 MG/2 ML SDV IVPUSH SCH ×6 (02:21→21:41)
[2019-02-01] MEDS: Piperacillin/Tazobactam 2.25 GM in Sodium Chloride 0.9% 50 ML IV SCH ×4 (03:59→21:45)
[2019-02-01 05:32] LABS: CARBON DIOXIDE,CO2 25.1 mmol/L (21.0-32.0); POTASSIUM,K 2.9 mmol/L (3.5-5.1)
[2019-02-01] MEDS: Heparin Sodium 5,000 Units/ML Vial SUBCUT SCH ×3 (05:35→21:40)
[2019-02-01] MEDS: Insulin Aspart 100 Units/ML 3 ML Pen SUBCUT SCH ×3 (07:42→17:00)
[2019-02-01] MEDS: Gabapentin 100 MG Cap PO SCH ×2 (08:40→20:23)
[2019-02-01] MEDS: Cholecalciferol (Vitamin D3) 25 MCG Tab PO SCH (08:41)
[2019-02-01] MEDS: Ascorbic Acid 500 MG Tab PO SCH (08:41)
[2019-02-01] MEDS: Cyanocobalamin (Vitamin B12) 500 MCG Tab PO SCH (08:41)
[2019-02-01] MEDS ORDERED: Magnesium Sulfate/Water 4 GM in Premix Bag 1 BAG IV ONE (09:07)
[2019-02-01] MEDS ORDERED: Loperamide 2 MG Cap PO PRN (09:09)
--- NOTE | 2019-02-01 09:10 | PCM.PN ---
- General Info Date of Service: 02/01/19 Admission Dx/Problem (Free Text): Admission Diagnosis/Problem Admission Diagnosis/Problem UTI (urinary tract infection), uncomplicated Subjective Update: Sitting up eating breakfast, reports feeling improved. No chest pain or abdominal pain. No SOB. Continues to have diarrhea, which is at baseline. Functional Status: Reports: Pain Controlled, Tolerating Diet, Ambulating, Urinating - Review of Systems General: Reports: No Symptoms. Denies: Weakness, Fatigue, Malaise Pulmonary: Reports: No Symptoms. Denies: Shortness of Breath Cardiovascular: Reports: No Symptoms. Denies: Chest Pain, Palpitations Gastrointestinal: Reports: No Symptoms. Denies: Abdominal Pain, Nausea, Vomiting Genitourinary: Reports: No Symptoms. Denies: Dysuria, Frequency, Burning Skin: Reports: No Symptoms Neurological: Reports: No Symptoms Psychiatric: Reports: No Symptoms - Patient Data Vitals - Most Recent: Last Vital Signs Temp 98.7 F 02/01/19 07:45 Pulse 87 02/01/19 07:45 Resp 16 02/01/19 07:45 BP 127/60 02/01/19 07:45 Pulse Ox 92 L 02/01/19 07:45 Weight - Most Recent: 66.315 kg I&O - Last 24 Hours: Intake & Output 01/31/19 02/01/19 02/01/19 22:59 06:59 14:59 Intake Total 900 750 Output Total 850 1350 Balance 50 -600 Lab Results Last 24 Hours: Laboratory Results - last 24 hr 01/31/19 01/31/19 02/01/19 Range/Units 11:34 17:14 04:37 WBC 6.17 (4.0-11.0) K/uL RBC 3.48 L (4.30-5.90) M/uL Hgb 10.1 L (12.0-16.0) g/dL Hct 32.0 L (36.0-46.0) % MCV 92.0 (80.0-98.0) fL MCH 29.0 (27.0-32.0) pg MCHC 31.6 (31.0-37.0) g/dL RDW Std Deviation 49.6 (28.0-62.0) fl RDW Coeff of Tiara 15 (11.0-15.0) % Plt Count 248 (150-400) K/uL MPV 8.90 (7.40-12.00) fL Neut % (Auto) 65.8 (48.0-80.0) % Lymph % (Auto) 22.2 (16.0-40.0) % Daggett % (Auto) 11.3 (0.0-15.0) % Eos % (Auto) 0.5 (0.0-7.0) % Baso % (Auto) 0.2 (0.0-1.5) % Neut # (Auto) 4.1 (1.4-5.7) K/uL Lymph # (Auto) 1.4 (0.6-2.4) K/uL Daggett # (Auto) 0.7 (0.0-0.8) K/uL Eos # (Auto) 0.0 (0.0-0.7) K/uL Baso # (Auto) 0.0 (0.0-0.1) K/uL Nucleated RBC % 0.0 /100WBC Nucleated RBCs # 0 K/uL Sodium (136-145) mmol/L Potassium (3.5-5.1) mmol/L Chloride (98-107) mmol/L Carbon Dioxide (21.0-32.0) mmol/L BUN (7.0-18.0) mg/dL Creatinine (0.6-1.0) mg/dL Est Cr Clr Drug Dosing mL/min Estimated GFR (MDRD) ml/min Glucose (74-106) mg/dL POC Glucose 137 H 144 H (60-110) mg/dL Calcium (8.5-10.1) mg/dL Magnesium (1.8-2.4) mg/dL 02/01/19 02/01/19 02/01/19 Range/Units 04:37 04:37 05:40 WBC (4.0-11.0) K/uL RBC (4.30-5.90) M/uL Hgb (12.0-16.0) g/dL Hct (36.0-46.0) % MCV (80.0-98.0) fL MCH (27.0-32.0) pg MCHC (31.0-37.0) g/dL RDW Std Deviation (28.0-62.0) fl RDW Coeff of Tiara (11.0-15.0) % Plt Count (150-400) K/uL MPV (7.40-12.00) fL Neut % (Auto) (48.0-80.0) % Lymph % (Auto) (16.0-40.0) % Daggett % (Auto) (0.0-15.0) % Eos % (Auto) (0.0-7.0) % Baso % (Auto) (0.0-1.5) % Neut # (Auto) (1.4-5.7) K/uL Lymph # (Auto) (0.6-2.4) K/uL Daggett # (Auto) (0.0-0.8) K/uL Eos # (Auto) (0.0-0.7) K/uL Baso # (Auto) (0.0-0.1) K/uL Nucleated RBC % /100WBC Nucleated RBCs # K/uL Sodium 141 (136-145) mmol/L Potassium 2.9 L (3.5-5.1) mmol/L Chloride 104 (98-107) mmol/L Carbon Dioxide 25.1 (21.0-32.0) mmol/L BUN 10 (7.0-18.0) mg/dL Creatinine 0.9 (0.6-1.0) mg/dL Est Cr Clr Drug Dosing 36.14 mL/min Estimated GFR (MDRD) 59.5 ml/min Glucose 143 H (74-106) mg/dL POC Glucose 133 H (60-110) mg/dL Calcium 7.9 L (8.5-10.1) mg/dL Magnesium 1.4 L (1.8-2.4) mg/dL Antoine Results Last 24 Hours: Microbiology 01/30/19 16:20 Urine Culture - Final Urine, Clean Catch MIXED JACOB >100,000 CFU/ML 01/30/19 16:20 Aerobic Blood Culture - Preliminary Blood - Venous NO GROWTH AFTER 1 DAY Anaerobic Blood Culture - Preliminary 01/31/19 17:15 Clostridium difficile Toxin A & B - Final Stool / Feces Negative for C.Diff Toxin/AG REFERENCE RANGE: NEGATIVE 01/31/19 17:15 Campylobacter Antigen Assay - Final Stool / Feces NEGATIVE CAMPYLOBACTER AG REFERENCE RANGE: NEGATIVE 01/30/19 16:42 Aerobic Blood Culture - Preliminary Blood - Venous - Lab Draw NO GROWTH AFTER 1 DAY Anaerobic Blood Culture - Final Med Orders - Current: Current Medications Acetaminophen (Tylenol Extra Strength) 1,000 mg PO Q6H PRN PRN Reason: Pain Last Admin: 01/31/19 17:22 Dose: 1,000 mg Ascorbic Acid (Vitamin C) 1,000 mg PO DAILY [facility] Last Admin: 02/01/19 08:41 Dose: 1,000 mg Atorvastatin Calcium (Lipitor) 10 mg PO BEDTIME [facility] Last Admin: 01/31/19 20:36 Dose: 10 mg Cholecalciferol (Vitamin D3) 25 mcg PO DAILY [facility] Last Admin: 02/01/19 08:41 Dose: 25 mcg Cyanocobalamin (Vitamin B12) 500 mcg PO DAILY [facility] Last Admin: 02/01/19 08:41 Dose: 500 mcg Gabapentin (Neurontin) 300 mg PO BID [facility] Last Admin: 02/01/19 08:40 Dose: 300 mg Heparin Sodium (Porcine) (Heparin Sodium) 5,000 units SUBCUT Q8H [facility] Last Admin: 02/01/19 05:35 Dose: 5,000 units Piperacillin Sod/Tazobactam (Sod 2.25 gm/ Sodium Chloride) 50 mls @ 100 mls/hr IV Q6H [facility] Last Admin: 02/01/19 03:59 Dose: 100 mls/hr Vancomycin HCl 1 gm/ Sodium (Chloride) 250 mls @ 166 mls/hr IV Q24H [facility] Last Admin: 02/01/19 05:33 Dose: 166 mls/hr Magnesium Sulfate 4 gm/ Premix 100 mls @ 33.333 mls/hr IV ONETIME ONE Stop: 02/01/19 12:06 Insulin Aspart (Novolog) 0 unit SUBCUT TIDAC [facility]; Protocol Last Admin: 02/01/19 07:42 Dose: Not Given Loperamide HCl (Imodium) 2 mg PO Q2H PRN PRN Reason: Diarrhea Ondansetron HCl (Zofran) 4 mg IVPUSH Q4H [facility] Last Admin: 02/01/19 05:35 Dose: Not Given Potassium Chloride (Klor-Con M20) 40 meq PO BIDMEALS [facility] Vancomycin HCl (Pharmacy To Dose - Vancomycin) 1 dose .XX ASDIRECTED [facility] Discontinued Medications Acetaminophen (Tylenol) 650 mg PO NOW ONE Stop: 01/30/19 17:39 Last Admin: 01/30/19 18:07 Dose: 650 mg Acetaminophen (Tylenol) 650 mg PO Q6H PRN PRN Reason: Pain (Mild 1-3)/fever Gabapentin (Neurontin) 100 mg PO BID [facility] Last Admin: 01/31/19 09:51 Dose: 100 mg Sodium Chloride (Normal Saline) 1,000 mls @ 999 mls/hr IV STAT ONE Stop: 01/30/19 16:57 Last Admin: 01/30/19 16:25 Dose: 999 mls/hr Ceftriaxone Sodium/Dextrose 1 (gm/ Premix) 50 mls @ 100 mls/hr IV ONETIME ONE Stop: 01/30/19 17:42 Last Admin: 01/30/19 17:34 Dose: 100 mls/hr Sodium Chloride (Normal Saline) 1,000 mls @ 125 mls/hr IV STAT ONE Stop: 01/31/19 03:39 Last Admin: 01/30/19 20:39 Dose: 125 mls/hr Piperacillin Sod/Tazobactam (Sod 3.375 gm/ Sodium Chloride) 50 mls @ 100 mls/ hr IV Q6H [facility] Last Admin: 01/30/19 22:40 Dose: Not Given Ibuprofen (Motrin) 800 mg PO ONETIME ONE Stop: 01/30/19 19:41 Last Admin: 01/30/19 20:40 Dose: 800 mg Loperamide HCl (Imodium) 4 mg PO Q6H PRN PRN Reason: Diarrhea Last Admin: 02/01/19 08:41 Dose: 4 mg - Exam General: Alert, Oriented, Cooperative, No Acute Distress Lungs: Clear to Auscultation, Normal Respiratory Effort Cardiovascular: Regular Rate, Regular Rhythm GI/Abdominal Exam: Normal Bowel Sounds, Soft, Non-Tender Extremities: Normal Inspection, Normal Range of Motion, Non-Tender Neurological: No New Focal Deficit Psy/Mental Status: Alert, Normal Affect, Normal Mood - Problem List & Annotations (1) UTI (urinary tract infection) SNOMED Code(s): 47391655 Code(s): N39.0 - URINARY TRACT INFECTION, SITE NOT SPECIFIED Status: Acute Current Visit: Yes Qualifiers: Urinary tract infection type: acute cystitis Hematuria presence: with hematuria Qualified Code(s): N30.01 - Acute cystitis with hematuria (2) History of colon cancer SNOMED Code(s): 525429394 Code(s): Z85.038 - PERSONAL HISTORY OF MALIGNANT NEOPLASM OF LARGE INTESTINE Status: Acute Current Visit: Yes - Problem List Review Problem List Initiated/Reviewed/Updated: Yes - My Orders Last 24 Hours: My Active Orders 01/31/19 09:30 Acetaminophen [Tylenol Extra Strength] 1,000 mg PO Q6H PRN 01/31/19 14:20 Isolation [COMM] Stat 01/31/19 17:15 CULTURE STOOL + CAMPY+SHIGATOX [RM] Routine 01/31/19 21:00 Gabapentin [Neurontin] 300 mg PO BID 02/01/19 09:00 Ascorbic Acid [Vitamin C] 1,000 mg PO DAILY Cholecalciferol (Vitamin D3) [Vitamin D3] 25 mcg PO DAILY Cyanocobalamin (Vitamin B12) [Vitamin B12] 500 mcg PO DAILY 02/01/19 09:05 Patient Status [ADT] Routine 02/01/19 09:07 Magnesium Sulfate/Water [Magnesium Sulfate in Water Premix] 4 gm Premix Bag 1 bag IV ONETIME Potassium Chloride [Klor-Con M20] 40 meq PO BIDMEALS 02/01/19 09:09 Loperamide [Imodium] 2 mg PO Q2H PRN 02/02/19 05:11 BMP [BASIC METABOLIC PANEL,BMP] [CHEM] AM CBC WITH AUTO DIFF [HEME] AM - Plan Plan:: This 83 year old female admitted with fevers and UTI 1. UTI: BC returned with 1/4 with gram positive cocci, Vancomycin added. Repeat BC today. UC mixed jacob, >100,000. Continue Zosyn for now. No fevers since admission. No leukocytosis. Will make inpatient due to possible bacteremia. 2. HTN: Hold Losartan for now, BP borderline. Monitor 3. Hx stage 4 colon CA: CT reveals possible carcinomatosis. Called Dr Brewster, Oncology, will arrange appointment with him next week to talk with Radha about continued treatment. She is questioning whether she should continue treatment or consider Hospice. She reports they have talked about Hospice, but wants more guidance from Dr Brewster. VTE prophylaxis: heparin. Dispo: Make inpatient today for bacteremia, 1-2 more days.
[2019-02-01] MEDS: Potassium Chloride 20 MEQ Tab.ER PO SCH ×2 (09:40→16:59)
[2019-02-01] MEDS: Acetaminophen 500 MG Tab PO PRN (18:45)
[2019-02-01] MEDS: atorvaSTATin 10 MG Tab PO SCH (20:24)
[2019-02-02] MEDS: Acetaminophen 500 MG Tab PO PRN ×3 (01:26→19:53)
[2019-02-02] MEDS: Ondansetron 4 MG/2 ML SDV IVPUSH SCH ×7 (01:29→22:36)
[2019-02-02] MEDS: Piperacillin/Tazobactam 2.25 GM in Sodium Chloride 0.9% 50 ML IV SCH ×4 (04:33→22:37)
[2019-02-02] MEDS: Heparin Sodium 5,000 Units/ML Vial SUBCUT SCH ×3 (05:34→22:34)
[2019-02-02 05:35] LABS: CARBON DIOXIDE,CO2 24.9 mmol/L (21.0-32.0); POTASSIUM,K 3.4 mmol/L (3.5-5.1)
[2019-02-02] MEDS: Insulin Aspart 100 Units/ML 3 ML Pen SUBCUT SCH ×3 (06:33→17:57)
[2019-02-02] MEDS ORDERED: Potassium Chloride 20 MEQ Tab.ER PO ONE (08:05)
[2019-02-02] MEDS: Potassium Chloride 20 MEQ Tab.ER PO SCH (08:16)
[2019-02-02] MEDS: Ascorbic Acid 500 MG Tab PO SCH (09:24)
[2019-02-02] MEDS: Cholecalciferol (Vitamin D3) 25 MCG Tab PO SCH (09:25)
[2019-02-02] MEDS: Cyanocobalamin (Vitamin B12) 500 MCG Tab PO SCH (09:25)
[2019-02-02] MEDS: Gabapentin 100 MG Cap PO SCH ×2 (09:55→20:36)
--- NOTE | 2019-02-02 10:48 | PCM.PN ---
- General Info Date of Service: 02/02/19 Admission Dx/Problem (Free Text): Admission Diagnosis/Problem Admission Diagnosis/Problem UTI (urinary tract infection), uncomplicated Subjective Update: Feeling good today, no concerns. No chest pain or SOB. Diarrhea continues, which again is baseline. No other concerns. Eager to go home when possible. Functional Status: Reports: Pain Controlled, Tolerating Diet, Ambulating - Review of Systems General: Reports: No Symptoms. Denies: Weakness, Fatigue HEENT: Reports: No Symptoms. Denies: Headaches, Sore Throat, Visual Changes Pulmonary: Reports: No Symptoms. Denies: Shortness of Breath Cardiovascular: Reports: No Symptoms. Denies: Chest Pain Gastrointestinal: Reports: Diarrhea (at baseline). Denies: Abdominal Pain, Nausea, Vomiting Genitourinary: Reports: No Symptoms. Denies: Dysuria, Frequency Musculoskeletal: Reports: No Symptoms Skin: Reports: No Symptoms Neurological: Reports: No Symptoms Psychiatric: Reports: No Symptoms - Patient Data Vitals - Most Recent: Last Vital Signs Temp 98.3 F 02/02/19 07:31 Pulse 73 02/02/19 07:31 Resp 18 02/02/19 07:31 BP 140/65 02/02/19 07:31 Pulse Ox 94 L 02/02/19 07:31 Weight - Most Recent: 64.682 kg I&O - Last 24 Hours: Intake & Output 02/01/19 02/02/19 02/02/19 22:59 06:59 14:59 Intake Total 950 1220 Output Total 1500 1350 Balance -550 -130 Lab Results Last 24 Hours: Laboratory Results - last 24 hr 02/01/19 02/01/19 02/02/19 Range/Units 11:39 16:49 04:40 WBC 6.54 (4.0-11.0) K/uL RBC 3.53 L (4.30-5.90) M/uL Hgb 10.3 L (12.0-16.0) g/dL Hct 32.1 L (36.0-46.0) % MCV 90.9 (80.0-98.0) fL MCH 29.2 (27.0-32.0) pg MCHC 32.1 (31.0-37.0) g/dL RDW Std Deviation 49.3 (28.0-62.0) fl RDW Coeff of Tiara 15 (11.0-15.0) % Plt Count 237 (150-400) K/uL MPV 8.70 (7.40-12.00) fL Neut % (Auto) 72.6 (48.0-80.0) % Lymph % (Auto) 17.1 (16.0-40.0) % [place] % (Auto) 9.2 (0.0-15.0) % Eos % (Auto) 0.9 (0.0-7.0) % Baso % (Auto) 0.2 (0.0-1.5) % Neut # (Auto) 4.8 (1.4-5.7) K/uL Lymph # (Auto) 1.1 (0.6-2.4) K/uL [place]in # (Auto) 0.6 (0.0-0.8) K/uL Eos # (Auto) 0.1 (0.0-0.7) K/uL Baso # (Auto) 0.0 (0.0-0.1) K/uL Nucleated RBC % 0.0 /100WBC Nucleated RBCs # 0 K/uL Sodium (136-145) mmol/L Potassium (3.5-5.1) mmol/L Chloride (98-107) mmol/L Carbon Dioxide (21.0-32.0) mmol/L BUN (7.0-18.0) mg/dL Creatinine (0.6-1.0) mg/dL Est Cr Clr Drug Dosing mL/min Estimated GFR (MDRD) ml/min Glucose (74-106) mg/dL POC Glucose 141 H 177 H (60-110) mg/dL Calcium (8.5-10.1) mg/dL Magnesium (1.8-2.4) mg/dL 02/02/19 02/02/19 Range/Units 04:40 06:14 WBC (4.0-11.0) K/uL RBC (4.30-5.90) M/uL Hgb (12.0-16.0) g/dL Hct (36.0-46.0) % MCV (80.0-98.0) fL MCH (27.0-32.0) pg MCHC (31.0-37.0) g/dL RDW Std Deviation (28.0-62.0) fl RDW Coeff of Tiara (11.0-15.0) % Plt Count (150-400) K/uL MPV (7.40-12.00) fL Neut % (Auto) (48.0-80.0) % Lymph % (Auto) (16.0-40.0) % [place]annin % (Auto) (0.0-15.0) % Eos % (Auto) (0.0-7.0) % Baso % (Auto) (0.0-1.5) % Neut # (Auto) (1.4-5.7) K/uL Lymph # (Auto) (0.6-2.4) K/uL Fannin # (Auto) (0.0-0.8) K/uL Eos # (Auto) (0.0-0.7) K/uL Baso # (Auto) (0.0-0.1) K/uL Nucleated RBC % /100WBC Nucleated RBCs # K/uL Sodium 140 (136-145) mmol/L Potassium 3.4 L (3.5-5.1) mmol/L Chloride 104 (98-107) mmol/L Carbon Dioxide 24.9 (21.0-32.0) mmol/L BUN 8 (7.0-18.0) mg/dL Creatinine 0.9 (0.6-1.0) mg/dL Est Cr Clr Drug Dosing 36.14 mL/min Estimated GFR (MDRD) 59.5 ml/min Glucose 152 H (74-106) mg/dL POC Glucose 135 H (60-110) mg/dL Calcium 8.2 L (8.5-10.1) mg/dL Magnesium 2.1 (1.8-2.4) mg/dL Antoine Results Last 24 Hours: Microbiology 02/01/19 10:12 Aerobic Blood Culture - Preliminary Blood - Venous - Lab Draw NO GROWTH AFTER 1 DAY Anaerobic Blood Culture - Preliminary NO GROWTH AFTER 1 DAY 02/01/19 10:00 Aerobic Blood Culture - Preliminary Blood - Venous NO GROWTH AFTER 1 DAY Anaerobic Blood Culture - Preliminary NO GROWTH AFTER 1 DAY 01/30/19 16:20 Aerobic Blood Culture - Preliminary Blood - Venous NO GROWTH AFTER 2 DAYS Anaerobic Blood Culture - Preliminary 01/31/19 17:15 Stool Culture - Final Stool / Feces Campylobacter Antigen Assay - Final NEGATIVE CAMPYLOBACTER AG REFERENCE RANGE: NEGATIVE Shiga Toxin I - Final NEGATIVE FOR SHIGA TOXIN 1 REFERENCE RANGE: NEGATIVE Shiga Toxin II - Final NEGATIVE FOR SHIGA TOXIN 2 REFERENCE RANGE: NEGATIVE 01/30/19 16:42 Aerobic Blood Culture - Preliminary Blood - Venous - Lab Draw NO GROWTH AFTER 2 DAYS Anaerobic Blood Culture - Final 01/30/19 16:20 Urine Culture - Final Urine, Clean Catch MIXED JACOB >100,000 CFU/ML Med Orders - Current: Current Medications Acetaminophen (Tylenol Extra Strength) 1,000 mg PO Q6H PRN PRN Reason: Pain Last Admin: 02/02/19 01:26 Dose: 1,000 mg Ascorbic Acid (Vitamin C) 1,000 mg PO DAILY [facility] Last Admin: 02/02/19 09:24 Dose: 1,000 mg Atorvastatin Calcium (Lipitor) 10 mg PO BEDTIME [facility] Last Admin: 02/01/19 20:24 Dose: 10 mg Cholecalciferol (Vitamin D3) 25 mcg PO DAILY [facility] Last Admin: 02/02/19 09:25 Dose: 25 mcg Cyanocobalamin (Vitamin B12) 500 mcg PO DAILY [facility] Last Admin: 02/02/19 09:25 Dose: 500 mcg Gabapentin (Neurontin) 300 mg PO BID [facility] Last Admin: 02/02/19 09:55 Dose: 300 mg Heparin Sodium (Porcine) (Heparin Sodium) 5,000 units SUBCUT Q8H [facility] Last Admin: 02/02/19 05:34 Dose: 5,000 units Piperacillin Sod/Tazobactam (Sod 2.25 gm/ Sodium Chloride) 50 mls @ 100 mls/hr IV Q6H [facility] Last Admin: 02/02/19 09:55 Dose: 100 mls/hr Vancomycin HCl 1 gm/ Sodium (Chloride) 250 mls @ 166 mls/hr IV Q24H [facility] Last Admin: 02/02/19 05:26 Dose: 166 mls/hr Insulin Aspart (Novolog) 0 unit SUBCUT TIDAC [facility]; Protocol Last Admin: 02/02/19 06:33 Dose: Not Given Loperamide HCl (Imodium) 2 mg PO Q2H PRN PRN Reason: Diarrhea Last Admin: 02/02/19 09:54 Dose: 2 mg Ondansetron HCl (Zofran) 4 mg IVPUSH Q4H [facility] Last Admin: 02/02/19 09:56 Dose: Not Given Vancomycin HCl (Pharmacy To Dose - Vancomycin) 1 dose .XX ASDIRECTED [facility] Discontinued Medications Acetaminophen (Tylenol) 650 mg PO NOW ONE Stop: 01/30/19 17:39 Last Admin: 01/30/19 18:07 Dose: 650 mg Acetaminophen (Tylenol) 650 mg PO Q6H PRN PRN Reason: Pain (Mild 1-3)/fever Gabapentin (Neurontin) 100 mg PO BID [facility] Last Admin: 01/31/19 09:51 Dose: 100 mg Sodium Chloride (Normal Saline) 1,000 mls @ 999 mls/hr IV STAT ONE Stop: 01/30/19 16:57 Last Admin: 01/30/19 16:25 Dose: 999 mls/hr Ceftriaxone Sodium/Dextrose 1 (gm/ Premix) 50 mls @ 100 mls/hr IV ONETIME ONE Stop: 01/30/19 17:42 Last Admin: 01/30/19 17:34 Dose: 100 mls/hr Sodium Chloride (Normal Saline) 1,000 mls @ 125 mls/hr IV STAT ONE Stop: 01/31/19 03:39 Last Admin: 01/30/19 20:39 Dose: 125 mls/hr Piperacillin Sod/Tazobactam (Sod 3.375 gm/ Sodium Chloride) 50 mls @ 100 mls/ hr IV Q6H [facility] Last Admin: 01/30/19 22:40 Dose: Not Given Magnesium Sulfate 4 gm/ Premix 100 mls @ 33.333 mls/hr IV ONETIME ONE Stop: 02/01/19 12:06 Last Admin: 02/01/19 09:40 Dose: 33.333 mls/hr Ibuprofen (Motrin) 800 mg PO ONETIME ONE Stop: 01/30/19 19:41 Last Admin: 01/30/19 20:40 Dose: 800 mg Loperamide HCl (Imodium) 4 mg PO Q6H PRN PRN Reason: Diarrhea Last Admin: 02/01/19 08:41 Dose: 4 mg Potassium Chloride (Klor-Con M20) 40 meq PO BIDMEALS [facility] Last Admin: 02/02/19 08:16 Dose: Not Given Potassium Chloride (Klor-Con M20) 40 meq PO ONETIME ONE Stop: 02/02/19 08:06 Last Admin: 02/02/19 08:17 Dose: 40 meq - Exam General: Alert, Oriented, Cooperative Lungs: Clear to Auscultation, Normal Respiratory Effort Cardiovascular: Regular Rate, Regular Rhythm GI/Abdominal Exam: Normal Bowel Sounds, Soft, Non-Tender Extremities: Normal Inspection, Normal Range of Motion, Non-Tender Neurological: No New Focal Deficit Psy/Mental Status: Alert, Normal Affect, Normal Mood - Problem List & Annotations (1) Bacteremia SNOMED Code(s): 3771253 Code(s): R78.81 - BACTEREMIA Status: Suspected Current Visit: Yes (2) UTI (urinary tract infection) SNOMED Code(s): 11649497 Code(s): N39.0 - URINARY TRACT INFECTION, SITE NOT SPECIFIED Status: Acute Current Visit: Yes Qualifiers: Urinary tract infection type: acute cystitis Hematuria presence: with hematuria Qualified Code(s): N30.01 - Acute cystitis with hematuria (3) History of colon cancer SNOMED Code(s): 897594917 Code(s): Z85.038 - PERSONAL HISTORY OF MALIGNANT NEOPLASM OF LARGE INTESTINE Status: Acute Current Visit: Yes - Problem List Review Problem List Initiated/Reviewed/Updated: Yes - My Orders Last 24 Hours: My Active Orders 02/01/19 10:00 CULTURE BLOOD [BC] Stat 02/01/19 10:12 CULTURE BLOOD [BC] Stat - Plan Plan:: This 83 year old female admitted with fevers and UTI 1. UTI/bacteremia: BC returned with 1/4 with gram positive cocci. Will need on more day in Micro for ANTOINE. Repeat BC negative x 1 day for growth. UC mixed jacob , >100,000. Continue Zosyn and Vancomycin No fevers since admission. No leukocytosis. 2. HTN: resume Losartan 3. Hx stage 4 colon CA: CT reveals possible carcinomatosis. Spoke with Dr Brewster, Oncology, will arrange appointment with him next week to talk with Radha about continued treatment. He agrees Hospice may be best choice for her if she is not wanting to continue treatments VTE prophylaxis: heparin. Dispo:1-2 days
[2019-02-02] MEDS: atorvaSTATin 10 MG Tab PO SCH (20:36)
[2019-02-03] MEDS: Ondansetron 4 MG/2 ML SDV IVPUSH SCH ×3 (03:02→10:33)
[2019-02-03] MEDS: Acetaminophen 500 MG Tab PO PRN (04:07)
[2019-02-03] MEDS: Piperacillin/Tazobactam 2.25 GM in Sodium Chloride 0.9% 50 ML IV SCH ×2 (04:09→10:28)
[2019-02-03] MEDS: Heparin Sodium 5,000 Units/ML Vial SUBCUT SCH (05:58)
[2019-02-03] MEDS: Gabapentin 100 MG Cap PO SCH (08:23)
[2019-02-03] MEDS: Cholecalciferol (Vitamin D3) 25 MCG Tab PO SCH (08:23)
[2019-02-03] MEDS: Cyanocobalamin (Vitamin B12) 500 MCG Tab PO SCH (08:23)
[2019-02-03] MEDS: Ascorbic Acid 500 MG Tab PO SCH (08:23)
[2019-02-03] MEDS: Insulin Aspart 100 Units/ML 3 ML Pen SUBCUT SCH (08:28)
[2019-02-03] MEDS ORDERED: Losartan 50 MG Tab PO SCH (09:00)
[2019-02-03 12:15] VITALS: BP 127/66; PULSE 81
--- NOTE | 2019-02-03 12:19 | PCM.DCSUM1 ---
Discharge Summary - Discharge Data Discharge Date: 02/03/19 Discharge Disposition: Home, Self-Care 01 Condition: Stable - Referral to Home Health Primary Care Physician: Jimmie Lam MD - Patient Summary/Data Hospital Course: 83 yo female with past medical of diabetes and stage 4 colon cancer s/p hemicolectomy. She has had recurrent UTIs and has had a right ureteral stent due to obstruction. She presented to the ER with complaints of fever. She was found to have a UTI based on UA showing pyuria. She was admitted for pyelonephritis. CT scan of abdomen reported no changes in right hydroureteronephrosis or ureteral stent. CT scan also reported left omental stranding consistent with carcinomatosis She was treated with Zosyn and Vancomycin. Urine cultures grew out mixed jacob. Blood cultures grew out alpha streptococcus. Patient is requesting discharge home. She was discharged home on Keflex for ten more days. She was offered Hospice consultation which patient states she will consider. - Patient Instructions Diet: Usual Diet as Tolerated Activity: As Tolerated - Discharge Plan Prescriptions/Med Rec: cephALEXin [Keflex] 500 mg PO Q8H #30 cap Home Medications: Home Meds Cholecalciferol (Vitamin D3) [Vitamin D3] 1,000 units CHEW DAILY 09/10/16 [ History] Cyanocobalamin (Vitamin B12) [Vitamin B12] 500 mcg PO DAILY 09/10/16 [History] Losartan Potassium 25 mg PO QAM 09/10/16 [History] atorvaSTATin Calcium [Atorvastatin Calcium] 10 mg PO BEDTIME 09/10/16 [History] metFORMIN HCl [Metformin HCl] 500 mg PO BEDTIME 09/10/16 [History] Ascorbic Acid [Vitamin C] 1,000 mg PO DAILY 12/30/16 [History] Gabapentin [Neurontin] 100 mg PO BID 12/30/16 [History] cephALEXin [Keflex] 500 mg PO Q8H #30 cap 02/03/19 [Rx] Patient Handouts: Urinary Tract Infection, Adult Referrals: Malaika Brewster MD [Ordering Only Provider] - 02/07/19 10:40 am Jimmie Lam MD [Primary Care Provider] - 02/13/19 1:45 pm (ARRIVE 15 MINUTES EARLY FOR YOUR APPOINTMENT WITH DR LAM) Monty Aguilar MD [Physician] - - Discharge Summary/Plan Comment DC Time >30 min.: No - Patient Data Vitals - Most Recent: Last Vital Signs Temp 36.8 C 02/03/19 07:28 Pulse 93 02/03/19 07:28 Resp 18 02/03/19 07:28 BP 114/58 L 02/03/19 08:23 Pulse Ox 93 L 02/03/19 07:28 Weight - Most Recent: 66.315 kg I&O - Last 24 hours: Intake & Output 02/02/19 02/03/19 02/03/19 22:59 06:59 14:59 Intake Total 1200 1250 Output Total 1100 1900 Balance 100 -650 Lab Results - Last 24 hrs: Laboratory Results - last 24 hr 02/02/19 02/02/19 02/03/19 Range/Units 13:11 17:49 06:05 POC Glucose 117 H 101 155 H (60-110) mg/dL 02/03/19 Range/Units 11:31 POC Glucose 140 H (60-110) mg/dL JOHAN Results - Last 24 hrs: Microbiology 02/01/19 10:12 Aerobic Blood Culture - Preliminary Blood - Venous - Lab Draw NO GROWTH AFTER 2 DAYS Anaerobic Blood Culture - Preliminary NO GROWTH AFTER 2 DAYS 02/01/19 10:00 Aerobic Blood Culture - Preliminary Blood - Venous NO GROWTH AFTER 2 DAYS Anaerobic Blood Culture - Preliminary NO GROWTH AFTER 2 DAYS 01/30/19 16:42 Aerobic Blood Culture - Preliminary Blood - Venous - Lab Draw NO GROWTH AFTER 3 DAYS Anaerobic Blood Culture - Final 01/30/19 16:20 Aerobic Blood Culture - Preliminary Blood - Venous NO GROWTH AFTER 3 DAYS Anaerobic Blood Culture - Preliminary 01/31/19 17:15 Stool Culture - Final Stool / Feces Campylobacter Antigen Assay - Final NEGATIVE CAMPYLOBACTER AG REFERENCE RANGE: NEGATIVE Shiga Toxin I - Final NEGATIVE FOR SHIGA TOXIN 1 REFERENCE RANGE: NEGATIVE Shiga Toxin II - Final NEGATIVE FOR SHIGA TOXIN 2 REFERENCE RANGE: NEGATIVE Med Orders - Current: Current Medications Acetaminophen (Tylenol Extra Strength) 1,000 mg PO Q6H PRN PRN Reason: Pain Last Admin: 02/03/19 04:07 Dose: 1,000 mg Ascorbic Acid (Vitamin C) 1,000 mg PO DAILY SHERIE Last Admin: 02/03/19 08:23 Dose: 1,000 mg Atorvastatin Calcium (Lipitor) 10 mg PO BEDTIME SHERIE Last Admin: 02/02/19 20:36 Dose: 10 mg Cholecalciferol (Vitamin D3) 25 mcg PO DAILY [facility] Last Admin: 02/03/19 08:23 Dose: 25 mcg Cyanocobalamin (Vitamin B12) 500 mcg PO DAILY [facility] Last Admin: 02/03/19 08:23 Dose: 500 mcg Gabapentin (Neurontin) 300 mg PO BID [facility] Last Admin: 02/03/19 08:23 Dose: 300 mg Heparin Sodium (Porcine) (Heparin Sodium) 5,000 units SUBCUT Q8H [facility] Last Admin: 02/03/19 05:58 Dose: 5,000 units Piperacillin Sod/Tazobactam (Sod 2.25 gm/ Sodium Chloride) 50 mls @ 100 mls/hr IV Q6H [facility] Last Admin: 02/03/19 10:28 Dose: 100 mls/hr Vancomycin HCl 1 gm/ Sodium (Chloride) 250 mls @ 166 mls/hr IV Q24H [facility] Last Admin: 02/03/19 04:55 Dose: 166 mls/hr Insulin Aspart (Novolog) 0 unit SUBCUT TIDAC [facility]; Protocol Last Admin: 02/03/19 08:28 Dose: Not Given Loperamide HCl (Imodium) 2 mg PO Q2H PRN PRN Reason: Diarrhea Last Admin: 02/02/19 09:54 Dose: 2 mg Losartan Potassium (Cozaar) 25 mg PO QAM [facility] Last Admin: 02/03/19 08:23 Dose: 25 mg Ondansetron HCl (Zofran) 4 mg IVPUSH Q4H [facility] Last Admin: 02/03/19 10:33 Dose: Not Given Vancomycin HCl (Pharmacy To Dose - Vancomycin) 1 dose .XX ASDIRECTED [facility] Discontinued Medications Acetaminophen (Tylenol) 650 mg PO NOW ONE Stop: 01/30/19 17:39 Last Admin: 01/30/19 18:07 Dose: 650 mg Acetaminophen (Tylenol) 650 mg PO Q6H PRN PRN Reason: Pain (Mild 1-3)/fever Gabapentin (Neurontin) 100 mg PO BID [facility] Last Admin: 01/31/19 09:51 Dose: 100 mg Sodium Chloride (Normal Saline) 1,000 mls @ 999 mls/hr IV STAT ONE Stop: 01/30/19 16:57 Last Admin: 01/30/19 16:25 Dose: 999 mls/hr Ceftriaxone Sodium/Dextrose 1 (gm/ Premix) 50 mls @ 100 mls/hr IV ONETIME ONE Stop: 01/30/19 17:42 Last Admin: 01/30/19 17:34 Dose: 100 mls/hr Sodium Chloride (Normal Saline) 1,000 mls @ 125 mls/hr IV STAT ONE Stop: 01/31/19 03:39 Last Admin: 01/30/19 20:39 Dose: 125 mls/hr Piperacillin Sod/Tazobactam (Sod 3.375 gm/ Sodium Chloride) 50 mls @ 100 mls/ hr IV Q6H [facility] Last Admin: 01/30/19 22:40 Dose: Not Given Magnesium Sulfate 4 gm/ Premix 100 mls @ 33.333 mls/hr IV ONETIME ONE Stop: 02/01/19 12:06 Last Admin: 02/01/19 09:40 Dose: 33.333 mls/hr Ibuprofen (Motrin) 800 mg PO ONETIME ONE Stop: 01/30/19 19:41 Last Admin: 01/30/19 20:40 Dose: 800 mg Loperamide HCl (Imodium) 4 mg PO Q6H PRN PRN Reason: Diarrhea Last Admin: 02/01/19 08:41 Dose: 4 mg Potassium Chloride (Klor-Con M20) 40 meq PO BIDMEALS [facility] Last Admin: 02/02/19 08:16 Dose: Not Given Potassium Chloride (Klor-Con M20) 40 meq PO ONETIME ONE Stop: 02/02/19 08:06 Last Admin: 02/02/19 08:17 Dose: 40 meq
== END 2019-02-03 12:50 | disposition home or self-care (01) | DRG 690 ==
LOC: MW.ED 15:48 → MW.MS 18:17 → OBSVTOIN 02-01 09:05 → MW.MS 02-01 09:06
PROVIDERS: ADMIT Internal Medicine; ATTEND Internal Medicine
DX: N30.01 Acute cystitis with hematuria (principal); C18.9 Malignant neoplasm of colon, unspecified; R78.81 Bacteremia; N13.9 Obstructive and reflux uropathy, unspecified; C78.6 Secondary malignant neoplasm of retroperitoneum and peritoneum; E11.9 Type 2 diabetes mellitus without complications; E78.00 Pure hypercholesterolemia, unspecified; Z87.11 Personal history of peptic ulcer disease; I10 Essential (primary) hypertension; B95.4 Other streptococcus as the cause of diseases classified elsewhere; Z85.038 Personal history of other malignant neoplasm of large intestine; Z95.828 Presence of other vascular implants and grafts; Z92.21 Personal history of antineoplastic chemotherapy; Z87.440 Personal history of urinary (tract) infections; R35.0 Frequency of micturition; R50.9 Fever, unspecified; Z90.49 Acquired absence of other specified parts of digestive tract; Z79.84 Long term (current) use of oral hypoglycemic drugs; Z79.899 Other long term (current) drug therapy; Z90.710 Acquired absence of both cervix and uterus
CPT/HCPCS: 36415 ×3; 71045; 74176; 80048; 80053 ×2; 81001; 82962 ×5; 83605; 83735; 85025 ×3; 87040 ×2; 87046; 87086; 87324; 87804 ×2; 87899 ×3; 96361; 96365; 99285; A9270 ×12; J0696; J1644 ×5; J2405 ×7; J2543 ×6; J3370; J7040 ×2; J7050 ×7; 87077; 96366; 96367; 96372; 96375; 96376; 99284; G0378; J1815-GY; J3475

== ENCOUNTER 2019-05-13 04:29 | Inpatient (IN) | payer MEDICARE, BC ==
[2019-05-13] MEDS ORDERED: Sodium Chloride 0.9% 1,000 ML IV ONE (04:48)
[2019-05-13] MEDS ORDERED: Ondansetron 4 MG/2 ML SDV IVPUSH ONE (04:55)
[2019-05-13 05:22] LABS: CARBON DIOXIDE,CO2 23.6 mmol/L (21.0-32.0); POTASSIUM,K 3.8 mmol/L (3.5-5.1)
--- NOTE | 2019-05-13 05:59 | EDM.PDOC ---
ED HPI GENERAL MEDICAL PROBLEM - General Chief Complaint: Gastrointestinal Problem Stated Complaint: COLON CANCER, SICK Time Seen by Provider: 05/13/19 04:44 - History of Present Illness INITIAL COMMENTS - FREE TEXT/NARRATIVE: Pt with pmh of colon cancer present with nausea and vomiting that began late last night. She reports upper abdominal pain and attempted to take a tylenol and vomited. Pt has tolerated po since. Abdomen Pain Score (Numeric/FACES): 2 - Related Data Allergies Allergy/AdvReac Type Severity Reaction Status Date / Time No Known Allergies Allergy Verified 05/13/19 04:37 Home Meds: Home Meds Cholecalciferol (Vitamin D3) [Vitamin D3] 1,000 units CHEW DAILY 09/10/16 [ History] Cyanocobalamin (Vitamin B12) [Vitamin B12] 500 mcg PO DAILY 09/10/16 [History] Losartan Potassium 25 mg PO QAM 09/10/16 [History] atorvaSTATin Calcium [Atorvastatin Calcium] 10 mg PO BEDTIME 09/10/16 [History] metFORMIN HCl [Metformin HCl] 500 mg PO BEDTIME 09/10/16 [History] Ascorbic Acid [Vitamin C] 1,000 mg PO DAILY 12/30/16 [History] Gabapentin [Neurontin] 100 mg PO BID 12/30/16 [History] Past Medical History HEENT History: Reports: Cataract Cardiovascular History: Reports: Heart Murmur, High Cholesterol, Hypertension Respiratory History: Reports: None Gastrointestinal History: Reports: PUD, Other (See Below) Other Gastrointestinal History: hx of colon cancer Genitourinary History: Reports: Other (See Below) Other Genitourinary History: current Urinary obstruction [employer] History: Reports: Musculoskeletal History: Reports: None Neurological History: Reports: Other (See Below) Other Neuro History: hx of motion sickness Psychiatric History: Reports: None Endocrine/Metabolic History: Reports: Diabetes, Type II 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 Hematologic History: Reports: Blood Transfusion(s) Other Hematologic History: blood transfusion before colon surgery Immunologic History: Reports: None Oncologic (Cancer) History: Reports: Colon Dermatologic History: Reports: None - Infectious Disease History Infectious Disease History: Reports: None - Past Surgical History Head Surgeries/Procedures: Reports: None HEENT Surgical History: Reports: Cataract Surgery Cardiovascular Surgical History: Reports: Vascular Surgery Other Cardiovascular Surgeries/Procedures: has a Port-a-Cath for Chemo Respiratory Surgical History: Reports: None GI Surgical History: Reports: Cholecystectomy, Colon Other GI Surgeries/Procedures: colon resection for cancer Female Surgical History: Reports: Hysterectomy, Other (See Below) Other Female Surgeries/Procedures: Kidney Stent - right Neurological Surgical History: Reports: None Musculoskeletal Surgical History: Reports: None Oncologic Surgical History: Reports: Other (See Below) Other Oncologic Surgeries/Procedures: hx of colon resection- currently receiving chemo Social & Family History - Family History Family Medical History: Unobtainable - Tobacco Use Smoking Status *Q: Never Smoker - Caffeine Use Caffeine Use: Reports: None - Recreational Drug Use Recreational Drug Use: No ED ROS GENERAL - Review of Systems Review Of Systems: See Below Constitutional: Reports: No Symptoms. Denies: Fever, Chills Respiratory: Reports: No Symptoms Cardiovascular: Reports: No Symptoms GI/Abdominal: Reports: Abdominal Pain, Nausea, Vomiting. Denies: Distension : Reports: No Symptoms Neurological: Reports: No Symptoms ED EXAM, GI/ABD - Physical Exam Exam: See Below Exam Limited By: No Limitations General Appearance: Alert, WD/WN, No Apparent Distress Head: Atraumatic, Normocephalic Neck: Full Range of Motion Respiratory/Chest: No Respiratory Distress, Lungs Clear, Normal Breath Sounds, No Accessory Muscle Use Cardiovascular: Normal Peripheral Pulses, Regular Rate, Rhythm, No Murmur GI/Abdominal Exam: Soft, No Distention, Tender. No: Guarding, Rigid Neurological: Alert, Oriented Course - Vital Signs Last Recorded V/S: Last Vital Signs Temp 97.5 F 05/13/19 06:22 Pulse 94 05/13/19 06:22 Resp 18 05/13/19 06:22 BP 142/72 H 05/13/19 06:22 Pulse Ox 93 L 05/13/19 06:22 - Orders/Labs/Meds Orders: Active Orders 24 hr Category Date Time Status CULTURE BLOOD [BC] Stat Lab 05/13/19 06:30 Received CULTURE BLOOD [BC] Stat Lab 05/13/19 06:44 Received Blood Culture x2 Reflex Set [OM.PC] Stat Oth 05/13/19 06:22 Ordered Labs: Laboratory Tests 05/13/19 05/13/19 05/13/19 Range/Units 04:50 04:50 04:50 WBC 9.83 (4.0-11.0) K/uL RBC 4.16 L (4.30-5.90) M/uL Hgb 11.4 L (12.0-16.0) g/dL Hct 35.3 L (36.0-46.0) % MCV 84.9 (80.0-98.0) fL MCH 27.4 (27.0-32.0) pg MCHC 32.3 (31.0-37.0) g/dL RDW Std Deviation 48.1 (28.0-62.0) fl RDW Coeff of Tiara 16 H (11.0-15.0) % Plt Count 549 H (150-400) K/uL MPV 8.70 (7.40-12.00) fL Neut % (Auto) 77.9 (48.0-80.0) % Lymph % (Auto) 14.4 L (16.0-40.0) % Carroll % (Auto) 7.4 (0.0-15.0) % Eos % (Auto) 0.3 (0.0-7.0) % Baso % (Auto) 0.0 (0.0-1.5) % Neut # (Auto) 7.7 H (1.4-5.7) K/uL Lymph # (Auto) 1.4 (0.6-2.4) K/uL Carroll # (Auto) 0.7 (0.0-0.8) K/uL Eos # (Auto) 0.0 (0.0-0.7) K/uL Baso # (Auto) 0.0 (0.0-0.1) K/uL Nucleated RBC % 0.0 /100WBC Nucleated RBCs # 0 K/uL Lactate 1.1 (0.20-2.00) mmol/L Sodium 134 L (136-145) mmol/L Potassium 3.8 (3.5-5.1) mmol/L Chloride 96 L (98-107) mmol/L Carbon Dioxide 23.6 (21.0-32.0) mmol/L BUN 12 (7.0-18.0) mg/dL Creatinine 0.9 (0.6-1.0) mg/dL Est Cr Clr Drug Dosing 36.14 mL/min Estimated GFR (MDRD) 59.5 ml/min Glucose 149 H (74-106) mg/dL Calcium 8.8 (8.5-10.1) mg/dL Total Bilirubin 0.4 (0.2-1.0) mg/dL AST 37 (15-37) IU/L ALT 30 (14-63) IU/L Alkaline Phosphatase 157 H (46-116) U/L Total Protein 7.2 (6.4-8.2) g/dL Albumin 2.7 L (3.4-5.0) g/dL Globulin 4.5 H (2.6-4.0) g/dL Albumin/Globulin Ratio 0.6 L (0.9-1.6) Urine Color Urine Appearance Urine pH (5.0-8.0) Ur Specific Merlin (1.001-1.035) Urine Protein (NEGATIVE) mg/dL Urine Glucose (UA) (NEGATIVE) mg/dL Urine Ketones (NEGATIVE) mg/dL Urine Occult Blood (NEGATIVE) Urine Nitrite (NEGATIVE) Urine Bilirubin (NEGATIVE) Urine Urobilinogen (<2.0) EU/dL Ur Leukocyte Esterase (NEGATIVE) Urine RBC (0-2/HPF) Urine WBC (0-5/HPF) Ur Epithelial Cells (NONE-FEW) Urine Bacteria (NEGATIVE) 05/13/19 Range/Units 05:50 WBC (4.0-11.0) K/uL RBC (4.30-5.90) M/uL Hgb (12.0-16.0) g/dL Hct (36.0-46.0) % MCV (80.0-98.0) fL MCH (27.0-32.0) pg MCHC (31.0-37.0) g/dL RDW Std Deviation (28.0-62.0) fl RDW Coeff of Tiara (11.0-15.0) % Plt Count (150-400) K/uL MPV (7.40-12.00) fL Neut % (Auto) (48.0-80.0) % Lymph % (Auto) (16.0-40.0) % Carroll % (Auto) (0.0-15.0) % Eos % (Auto) (0.0-7.0) % Baso % (Auto) (0.0-1.5) % Neut # (Auto) (1.4-5.7) K/uL Lymph # (Auto) (0.6-2.4) K/uL Carroll # (Auto) (0.0-0.8) K/uL Eos # (Auto) (0.0-0.7) K/uL Baso # (Auto) (0.0-0.1) K/uL Nucleated RBC % /100WBC Nucleated RBCs # K/uL Lactate (0.20-2.00) mmol/L Sodium (136-145) mmol/L Potassium (3.5-5.1) mmol/L Chloride (98-107) mmol/L Carbon Dioxide (21.0-32.0) mmol/L BUN (7.0-18.0) mg/dL Creatinine (0.6-1.0) mg/dL Est Cr Clr Drug Dosing mL/min Estimated GFR (MDRD) ml/min Glucose (74-106) mg/dL Calcium (8.5-10.1) mg/dL Total Bilirubin (0.2-1.0) mg/dL AST (15-37) IU/L ALT (14-63) IU/L Alkaline Phosphatase (46-116) U/L Total Protein (6.4-8.2) g/dL Albumin (3.4-5.0) g/dL Globulin (2.6-4.0) g/dL Albumin/Globulin Ratio (0.9-1.6) Urine Color YELLOW Urine Appearance SLT CLOUDY Urine pH 6.0 (5.0-8.0) Ur Specific Merlin 1.020 (1.001-1.035) Urine Protein 30 H (NEGATIVE) mg/dL Urine Glucose (UA) NEGATIVE (NEGATIVE) mg/dL Urine Ketones 15 H (NEGATIVE) mg/dL Urine Occult Blood MODERATE H (NEGATIVE) Urine Nitrite POSITIVE H (NEGATIVE) Urine Bilirubin NEGATIVE (NEGATIVE) Urine Urobilinogen 0.2 (<2.0) EU/dL Ur Leukocyte Esterase LARGE H (NEGATIVE) Urine RBC 0-3 (0-2/HPF) Urine WBC 30-40 (0-5/HPF) Ur Epithelial Cells RARE (NONE-FEW) Urine Bacteria 2+ H (NEGATIVE) Meds: Medications Discontinued Medications Generic Name Dose Route Start Last Admin Trade Name Freq PRN Reason Stop Dose Admin Sodium Chloride 1,000 mls @ 999 mls/hr 05/13/19 04:48 05/13/19 05:02 Normal Saline IV 05/13/19 05:48 999 mls/hr BOLUS ONE Administration Cefepime HCl 1 gm/ Premix 50 mls @ 100 mls/hr 05/13/19 06:49 05/13/19 07:09 IV 05/13/19 07:18 100 mls/hr ONETIME ONE Administration Ondansetron HCl 4 mg 05/13/19 04:55 05/13/19 05:02 Zofran IVPUSH 05/13/19 04:56 4 mg ONETIME ONE Administration - Re-Assessments/Exams Free Text/Narrative Re-Assessment/Exam: 05/13/19 07:53 VS stable and PE benign. ED work up shows complicated uti with R ureteral stent in placed. IV cefepime given and pt admitted to Dr. Frausto. Pt and daughter report that she is a DNR/DNI. Pt and family is in agreement with plan. Departure - Departure Time of Disposition: 07:57 Disposition: Refer to Observation Condition: Good Clinical Impression: Complicated UTI (urinary tract infection) - Discharge Information *PRESCRIPTION DRUG MONITORING PROGRAM REVIEWED*: Not Applicable *COPY OF PRESCRIPTION DRUG MONITORING REPORT IN PATIENT ZAKIA: Not Applicable Sepsis Event Note - Evaluation Sepsis Screening Result: No Definite Risk - Focused Exam Vital Signs: Vital Signs Temp Pulse Resp BP Pulse Ox 05/13/19 06:22 97.5 F 94 18 142/72 H 93 L 05/13/19 04:30 96.8 F L 108 H 18 128/72 93 L Date Exam was Performed: 05/13/19 Time Exam was Performed: 07:53 - My Orders Last 24 Hours: My Active Orders 05/13/19 06:22 Blood Culture x2 Reflex Set [OM.PC] Stat 05/13/19 06:30 CULTURE BLOOD [BC] Stat 05/13/19 06:44 CULTURE BLOOD [BC] Stat - Assessment/Plan Last 24 Hours: My Active Orders 05/13/19 06:22 Blood Culture x2 Reflex Set [OM.PC] Stat 05/13/19 06:30 CULTURE BLOOD [BC] Stat 05/13/19 06:44 CULTURE BLOOD [BC] Stat
--- NOTE | 2019-05-13 06:06 | CT ---
INDICATION: Abdominal pain, nausea, vomiting. History of colon cancer TECHNIQUE: CT Abdomen and pelvis without i.v. contrast. Coronal and sagittal reformats were obtained. COMPARISON: 01/30/2019 FINDINGS: Lower chest: New small-moderate right and small left pleural effusions are noted. Moderate bibasilar atelectasis is seen. Liver: There is a stable liver cyst measuring 1.3 cm. Spleen: Unremarkable. Pancreas: Scattered calcifications are seen within the pancreatic parenchyma from chronic pancreatitis. Gallbladder: The gallbladder is not visualized and may be surgically absent. Kidney: Massive dilatation of the right renal pelvis and severe proximal hydroureter is noted without significant interval change. A right ureteral stent is noted without change in position. There is a new soft tissue density within the posterior aspect of the bladder near the right ureterovesicular junction measuring 2 cm. Mild left renal pelviectasis is present with mild right hydroureter. Adrenal: Unremarkable. Bowel: Unremarkable. Patient is status post right hemicolectomy. Vascular: Unremarkable. Lymph: Enlarged retroperitoneal lymph nodes are present measuring up to 2.2 cm. Peritoneum: Moderate abdominal ascites is present with new peritoneal masses measuring up to 5 cm in the upper abdomen and left upper quadrant, consistent with peritoneal carcinomatosis. No pneumoperitoneum is seen. Pelvis: See above. Soft tissue: Unremarkable. Bone: Unremarkable for age. IMPRESSIONS: 1. New small-moderate right and small left pleural effusions are noted. Moderate bibasilar atelectasis is seen. 2. Moderate abdominal ascites is present with new peritoneal masses measuring up to 5 cm in the upper abdomen and left upper quadrant, consistent with peritoneal carcinomatosis. 3. Massive dilatation of the right renal pelvis and severe proximal hydroureter is noted without significant interval change. A right ureteral stent is noted without change in position. 4. There is a new soft tissue density within the posterior aspect of the bladder near the right ureterovesicular junction measuring 2 cm. Findings are suspicious for bladder mass. 5. Mild left renal pelviectasis is present with mild right hydroureter. 6. Enlarged retroperitoneal lymph nodes are present measuring up to 2.2 cm. This is likely due to metastatic disease. Dictated by Jef Wray MD @ 05/13/2019 6:04:06 AM Please note that all CT scans at this facility use dose modulation, iterative reconstruction, and/or weight-based dosing when appropriate to reduce radiation dose to as low as reasonably achievable. Dictated by: Jef Wray MD @ 05/13/2019 06:04:11 (Electronically Signed)
[2019-05-13] MEDS ORDERED: Cefepime 1 GM in Premix Bag 1 BAG IV ONE (06:49)
[2019-05-13] MEDS ORDERED: Promethazine 25 MG/ML SDV IM PRN (08:43)
--- NOTE | 2019-05-13 08:51 | PCM.HP.2 ---
H&P History of Present Illness - General Date of Service: 05/13/19 Admit Problem/Dx: Admission Diagnosis/Problem Admission Diagnosis/Problem Urinary tract infection - History of Present Illness Initial Comments - Free Text/Narative: 83 yo female with pmh of recurrent metastatic colon cancer. Patient is being treated palliatively. She had a right ureteral stent placed in October for what was suspect to be obstruction due to metastatic disease. She presented to the ED due to one day complaint of nausea, vomiting, and diarrhea. She denies any fever or flank pain. CT scan of the abdomen reported new peritoneal disease, no change in severe right hydroneprhosis or stent. There is new 2cm mass near the right uterovesicular junction. Abdomen Pain Score (Numeric/FACES): 2 - Related Data Allergies/Adverse Reactions: Allergies Allergy/AdvReac Type Severity Reaction Status Date / Time No Known Allergies Allergy Verified 05/13/19 08:24 Home Medications: Home Meds Cholecalciferol (Vitamin D3) [Vitamin D3] 1,000 units CHEW DAILY 09/10/16 [ History] Cyanocobalamin (Vitamin B12) [Vitamin B12] 500 mcg PO DAILY 09/10/16 [History] Losartan Potassium 25 mg PO QAM 09/10/16 [History] atorvaSTATin Calcium [Atorvastatin Calcium] 10 mg PO BEDTIME 09/10/16 [History] metFORMIN HCl [Metformin HCl] 500 mg PO BEDTIME 09/10/16 [History] Ascorbic Acid [Vitamin C] 1,000 mg PO DAILY 12/30/16 [History] Gabapentin [Neurontin] 100 mg PO BID 12/30/16 [History] Aspirin [Halfprin] 81 mg PO DAILY 05/13/19 [History] Acetaminophen [Tylenol] 650 mg PO Q4H PRN tablet 05/16/19 [Rx] Cephalexin [Keflex] 500 mg PO BID #14 capsule 05/16/19 [Rx] Ondansetron [Zofran ODT] 4 mg PO Q6H PRN #30 tab.dis 05/16/19 [Rx] Vancomycin 125 mg PO QID #30 cap 05/16/19 [Rx] Past Medical History HEENT History: Reports: Cataract Cardiovascular History: Reports: Heart Murmur, High Cholesterol, Hypertension Respiratory History: Reports: None Gastrointestinal History: Reports: PUD, Other (See Below) Other Gastrointestinal History: hx of colon cancer Genitourinary History: Reports: Other (See Below) Other Genitourinary History: current Urinary obstruction 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: Musculoskeletal History: Reports: None Neurological History: Reports: Other (See Below) Other Neuro History: hx of motion sickness Psychiatric History: Reports: None Endocrine/Metabolic History: Reports: Diabetes, Type II Insulin Pump Model and Phd Intern: None Hematologic History: Reports: Blood Transfusion(s) Other Hematologic History: blood transfusion before colon surgery Immunologic History: Reports: None Oncologic (Cancer) History: Reports: Colon Dermatologic History: Reports: None - Infectious Disease History Infectious Disease History: Reports: None - Past Surgical History Head Surgeries/Procedures: Reports: None HEENT Surgical History: Reports: Cataract Surgery Cardiovascular Surgical History: Reports: Vascular Surgery Other Cardiovascular Surgeries/Procedures: has a Port-a-Cath for Chemo Respiratory Surgical History: Reports: None GI Surgical History: Reports: Cholecystectomy, Colon Other GI Surgeries/Procedures: colon resection for cancer Female Surgical History: Reports: Hysterectomy, Other (See Below) Other Female Surgeries/Procedures: Kidney Stent - right Neurological Surgical History: Reports: None Musculoskeletal Surgical History: Reports: None Oncologic Surgical History: Reports: Other (See Below) Other Oncologic Surgeries/Procedures: hx of colon resection. Social & Family History - Family History Family Medical History: Unobtainable - Tobacco Use Smoking Status *Q: Never Smoker - Caffeine Use Caffeine Use: Reports: None - Recreational Drug Use Recreational Drug Use: No H&P Review of Systems - Review of Systems: Review Of Systems: Comprehensive ROS is negative, except as noted in HPI. Exam - Exam Exam: See Below - Vital Signs Vital Signs: Last Vital Signs Temp 36.4 C 05/13/19 06:22 Pulse 94 05/13/19 06:22 Resp 18 05/13/19 06:22 BP 142/72 H 05/13/19 06:22 Pulse Ox 93 L 05/13/19 06:22 Weight: 61.235 kg - Exam General: Alert, Oriented HEENT: Mucosa Moist & [place] Lungs: Clear to Auscultation, Normal Respiratory Effort Cardiovascular: Regular Rate, Regular Rhythm GI/Abdominal Exam: Soft, Non-Tender, No Distention Extremities: Non-Tender, No Pedal Edema - Patient Data Lab Results Last 24 hrs: Laboratory Results - last 24 hr 05/13/19 05/13/19 05/13/19 Range/Units 04:50 04:50 04:50 WBC 9.83 (4.0-11.0) K/uL RBC 4.16 L (4.30-5.90) M/uL Hgb 11.4 L (12.0-16.0) g/dL Hct 35.3 L (36.0-46.0) % MCV 84.9 (80.0-98.0) fL MCH 27.4 (27.0-32.0) pg MCHC 32.3 (31.0-37.0) g/dL RDW Std Deviation 48.1 (28.0-62.0) fl RDW Coeff of Tiara 16 H (11.0-15.0) % Plt Count 549 H (150-400) K/uL MPV 8.70 (7.40-12.00) fL Neut % (Auto) 77.9 (48.0-80.0) % Lymph % (Auto) 14.4 L (16.0-40.0) % [place] % (Auto) 7.4 (0.0-15.0) % Eos % (Auto) 0.3 (0.0-7.0) % Baso % (Auto) 0.0 (0.0-1.5) % Neut # (Auto) 7.7 H (1.4-5.7) K/uL Lymph # (Auto) 1.4 (0.6-2.4) K/uL [place] # (Auto) 0.7 (0.0-0.8) K/uL Eos # (Auto) 0.0 (0.0-0.7) K/uL Baso # (Auto) 0.0 (0.0-0.1) K/uL Nucleated RBC % 0.0 /100WBC Nucleated RBCs # 0 K/uL Lactate 1.1 (0.20-2.00) mmol/L Sodium 134 L (136-145) mmol/L Potassium 3.8 (3.5-5.1) mmol/L Chloride 96 L (98-107) mmol/L Carbon Dioxide 23.6 (21.0-32.0) mmol/L BUN 12 (7.0-18.0) mg/dL Creatinine 0.9 (0.6-1.0) mg/dL Est Cr Clr Drug Dosing 36.14 mL/min Estimated GFR (MDRD) 59.5 ml/min Glucose 149 H (74-106) mg/dL Calcium 8.8 (8.5-10.1) mg/dL Total Bilirubin 0.4 (0.2-1.0) mg/dL AST 37 (15-37) IU/L ALT 30 (14-63) IU/L Alkaline Phosphatase 157 H (46-116) U/L Total Protein 7.2 (6.4-8.2) g/dL Albumin 2.7 L (3.4-5.0) g/dL Globulin 4.5 H (2.6-4.0) g/dL Albumin/Globulin Ratio 0.6 L (0.9-1.6) Urine Color Urine Appearance Urine pH (5.0-8.0) Ur Specific [place] (1.001-1.035) Urine Protein (NEGATIVE) mg/dL Urine Glucose (UA) (NEGATIVE) mg/dL Urine Ketones (NEGATIVE) mg/dL Urine Occult Blood (NEGATIVE) Urine Nitrite (NEGATIVE) Urine Bilirubin (NEGATIVE) Urine Urobilinogen (<2.0) EU/dL Ur Leukocyte Esterase (NEGATIVE) Urine RBC (0-2/HPF) Urine WBC (0-5/HPF) Ur Epithelial Cells (NONE-FEW) Urine Bacteria (NEGATIVE) 05/13/19 Range/Units 05:50 WBC (4.0-11.0) K/uL RBC (4.30-5.90) M/uL Hgb (12.0-16.0) g/dL Hct (36.0-46.0) % MCV (80.0-98.0) fL MCH (27.0-32.0) pg MCHC (31.0-37.0) g/dL RDW Std Deviation (28.0-62.0) fl RDW Coeff of [place] (11.0-15.0) % Plt Count (150-400) K/uL MPV (7.40-12.00) fL Neut % (Auto) (48.0-80.0) % Lymph % (Auto) (16.0-40.0) % [place] % (Auto) (0.0-15.0) % Eos % (Auto) (0.0-7.0) % Baso % (Auto) (0.0-1.5) % Neut # (Auto) (1.4-5.7) K/uL Lymph # (Auto) (0.6-2.4) K/uL [place] # (Auto) (0.0-0.8) K/uL Eos # (Auto) (0.0-0.7) K/uL Baso # (Auto) (0.0-0.1) K/uL Nucleated RBC % /100WBC Nucleated RBCs # K/uL Lactate (0.20-2.00) mmol/L Sodium (136-145) mmol/L Potassium (3.5-5.1) mmol/L Chloride (98-107) mmol/L Carbon Dioxide (21.0-32.0) mmol/L BUN (7.0-18.0) mg/dL Creatinine (0.6-1.0) mg/dL Est Cr Clr Drug Dosing mL/min Estimated GFR (MDRD) ml/min Glucose (74-106) mg/dL Calcium (8.5-10.1) mg/dL Total Bilirubin (0.2-1.0) mg/dL AST (15-37) IU/L ALT (14-63) IU/L Alkaline Phosphatase (46-116) U/L Total Protein (6.4-8.2) g/dL Albumin (3.4-5.0) g/dL Globulin (2.6-4.0) g/dL Albumin/Globulin Ratio (0.9-1.6) Urine Color YELLOW Urine Appearance SLT CLOUDY Urine pH 6.0 (5.0-8.0) Ur Specific [place] 1.020 (1.001-1.035) Urine Protein 30 H (NEGATIVE) mg/dL Urine Glucose (UA) NEGATIVE (NEGATIVE) mg/dL Urine Ketones 15 H (NEGATIVE) mg/dL Urine Occult Blood MODERATE H (NEGATIVE) Urine Nitrite POSITIVE H (NEGATIVE) Urine Bilirubin NEGATIVE (NEGATIVE) Urine Urobilinogen 0.2 (<2.0) EU/dL Ur Leukocyte Esterase LARGE H (NEGATIVE) Urine RBC 0-3 (0-2/HPF) Urine WBC 30-40 (0-5/HPF) Ur Epithelial Cells RARE (NONE-FEW) Urine Bacteria 2+ H (NEGATIVE) Result Diagrams: 05/16/19 06:10 05/16/19 06:10 Sepsis Event Note - Evaluation Sepsis Screening Result: No Definite Risk - Focused Exam Vital Signs: Vital Signs Temp Pulse Resp BP Pulse Ox 05/13/19 06:22 36.4 C 94 18 142/72 H 93 L 05/13/19 04:30 36.0 C L 108 H 18 128/72 93 L Date Exam was Performed: 05/17/19 Time Exam was Performed: 10:23 Problem List Initiated/Reviewed/Updated: No Orders Last 24hrs: Active Orders 24 hr Category Date Time Status Admission Status [Patient Status] [ADT] Stat ADT 05/13/19 07:02 Active Antiembolic Devices [RC] PER UNIT ROUTINE Care 05/13/19 08:44 Ordered Blood Glucose Check, Bedside [RC] TIDMEALS Care 05/13/19 08:43 Ordered Oxygen Therapy [RC] PRN Care 05/13/19 08:42 Ordered Oxygen Therapy [RC] PRN Care 05/13/19 08:43 Ordered VTE/DVT Education [RC] PER UNIT ROUTINE Care 05/13/19 08:42 Ordered VTE/DVT Education [RC] PER UNIT ROUTINE Care 05/13/19 08:43 Ordered Vital Signs [RC] Q4H Care 05/13/19 08:42 Ordered Vital Signs [RC] Q4H Care 05/13/19 08:43 Ordered [place] [employer] Diet [DIET] Diet 05/13/19 Breakfast Ordered BASIC METABOLIC PANEL,BMP [CHEM] AM Lab 05/14/19 05:11 Ordered CBC WITH AUTO DIFF [HEME] AM Lab 05/14/19 05:11 Ordered CULTURE BLOOD [BC] Stat Lab 05/13/19 06:30 Received CULTURE BLOOD [BC] Stat Lab 05/13/19 06:44 Received CULTURE URINE [RM] Routine Lab 05/13/19 08:41 Ordered Cefepime [Maxipime in D5W 1 GM/50 ML] 1 gm Med 05/13/19 15:00 Ordered Premix Bag 1 bag IV Q8H Gabapentin [Neurontin] Med 05/13/19 09:00 Ordered 100 mg PO BID Heparin Sodium Med 05/13/19 08:45 Ordered 5,000 units SUBCUT Q8H Insulin Aspart [NovoLOG] Med 05/13/19 11:30 Ordered See Protocol SUBCUT TIDAC Ondansetron [Zofran] Med 05/13/19 08:43 Ordered 4 mg IVPUSH Q4H PRN Pharmacy to Dose - Vancomycin Med 05/13/19 08:45 Ordered 1 dose .XX ASDIRECTED Promethazine [Phenergan] Med 05/13/19 08:43 Ordered 25 mg IM Q6H PRN Sodium Chloride 0.9% @ 100 MLS/HR(1,000ml) Med 05/13/19 08:45 Ordered Sodium Chloride 0.9% [Normal Saline] 1,000 ml IV ASDIRECTED Blood Culture x2 Reflex Set [OM.PC] Stat Oth 05/13/19 06:22 Ordered Sequential Compression Device [OM.PC] Per Unit Routine Oth 05/13/19 08:43 Ordered Resuscitation Status Routine Resus Stat 05/13/19 08:42 Ordered Medication Orders Gabapentin (Neurontin) 100 mg PO BID SHERIE Heparin Sodium (Porcine) (Heparin Sodium) 5,000 units SUBCUT Q8H SHERIE Cefepime HCl 1 gm/ Premix 50 mls @ 100 mls/hr IV Q8H SHERIE Sodium Chloride (Normal Saline) 1,000 mls @ 100 mls/hr IV ASDIRECTED SHERIE Insulin Aspart (Novolog) 0 unit SUBCUT TIDAC SHERIE; Protocol Ondansetron HCl (Zofran) 4 mg IVPUSH Q4H PRN PRN Reason: Nausea Promethazine HCl (Phenergan) 25 mg IM Q6H PRN PRN Reason: Nausea Vancomycin HCl (Pharmacy To Dose - Vancomycin) 1 dose .XX ASDIRECTED SHERIE Assessment/Plan Comment:: 83 yo female admitted for nausea and vomiting with possible UTI and gastroenteritis. We will treat with vancomycin and cefepime. Patient was planning on following up with Jeff this week to discuss replacing stent. Cultures are pending. I have a call out to Dr. Aguilar to inform him of the patient's admission.
[2019-05-13] MEDS: Gabapentin 100 MG Cap PO SCH ×2 (10:35→20:45)
[2019-05-13] MEDS: Heparin Sodium 5,000 Units/ML Vial SUBCUT SCH ×3 (10:35→23:44)
[2019-05-13] MEDS: Sodium Chloride 0.9% 1,000 ML IV SCH ×3 (10:39→23:13)
[2019-05-13] MEDS: Insulin Aspart 100 Units/ML 3 ML Pen SUBCUT SCH ×2 (12:38→18:36)
[2019-05-13] MEDS ORDERED: Acetaminophen 325 MG Tab PO PRN (12:40)
[2019-05-13] MEDS ORDERED: Ibuprofen 800 MG Tab PO PRN (12:43)
[2019-05-13] MEDS: Ondansetron 4 MG/2 ML SDV IVPUSH PRN ×2 (13:28→23:12)
[2019-05-13] MEDS: Cefepime 1 GM in Premix Bag 1 BAG IV SCH ×2 (15:46→23:13)
[2019-05-13] MEDS: Vancomycin 125 MG Cap PO SCH ×2 (17:25→23:42)
[2019-05-13] MEDS: Acetaminophen 325 MG Tab PO PRN ×2 (19:30→23:40)
[2019-05-14] MEDS: Cefepime 1 GM in Premix Bag 1 BAG IV SCH ×3 (06:08→22:16)
[2019-05-14] MEDS: Vancomycin 125 MG Cap PO SCH ×4 (06:08→23:34)
[2019-05-14] MEDS: Acetaminophen 325 MG Tab PO PRN ×4 (06:14→23:15)
[2019-05-14 06:17] LABS: CARBON DIOXIDE,CO2 23.9 mmol/L (21.0-32.0); POTASSIUM,K 3.6 mmol/L (3.5-5.1)
[2019-05-14] MEDS: Insulin Aspart 100 Units/ML 3 ML Pen SUBCUT SCH ×3 (07:01→17:58)
[2019-05-14] MEDS: Ondansetron 4 MG/2 ML SDV IVPUSH PRN ×2 (08:41→22:16)
[2019-05-14] MEDS: Heparin Sodium 5,000 Units/ML Vial SUBCUT SCH (08:41)
[2019-05-14] MEDS: Gabapentin 100 MG Cap PO SCH ×2 (08:41→20:40)
[2019-05-14] MEDS: Sodium Chloride 0.9% 1,000 ML IV SCH ×2 (08:47→22:15)
--- NOTE | 2019-05-14 08:58 | PCM.PN ---
- General Info Date of Service: 05/14/19 Admission Dx/Problem (Free Text): Admission Diagnosis/Problem Admission Diagnosis/Problem Urinary tract infection Subjective Update: Feeling improved today. No chest pain or SOB. Mild nausea. No abdominal pain. Functional Status: Reports: Pain Controlled, Tolerating Diet, Ambulating, Urinating - Review of Systems General: Reports: Fatigue, Malaise HEENT: Reports: No Symptoms Pulmonary: Reports: No Symptoms. Denies: Shortness of Breath Cardiovascular: Reports: No Symptoms. Denies: Chest Pain Gastrointestinal: Reports: Nausea. Denies: Abdominal Pain, Vomiting Genitourinary: Reports: No Symptoms. Denies: Dysuria, Frequency - Patient Data Vitals - Most Recent: Last Vital Signs Temp 97.6 F 05/14/19 07:15 Pulse 95 05/14/19 07:15 Resp 16 05/14/19 07:15 BP 138/67 05/14/19 07:15 Pulse Ox 94 L 05/14/19 07:15 Weight - Most Recent: 61.235 kg I&O - Last 24 Hours: Intake & Output 05/13/19 05/14/19 05/14/19 22:59 06:59 14:59 Intake Total 400 1534 Output Total 420 680 Balance -20 854 Lab Results Last 24 Hours: Laboratory Results - last 24 hr 05/13/19 05/13/19 05/14/19 Range/Units 12:30 17:36 05:35 WBC 8.03 (4.0-11.0) K/uL RBC 3.71 L (4.30-5.90) M/uL Hgb 10.3 L (12.0-16.0) g/dL Hct 31.5 L (36.0-46.0) % MCV 84.9 (80.0-98.0) fL MCH 27.8 (27.0-32.0) pg MCHC 32.7 (31.0-37.0) g/dL RDW Std Deviation 45.8 (28.0-62.0) fl RDW Coeff of Tiara 15 (11.0-15.0) % Plt Count 527 H (150-400) K/uL MPV 8.30 (7.40-12.00) fL Neut % (Auto) 74.9 (48.0-80.0) % Lymph % (Auto) 16.1 (16.0-40.0) % [place] % (Auto) 8.8 (0.0-15.0) % Eos % (Auto) 0.2 (0.0-7.0) % Baso % (Auto) 0.0 (0.0-1.5) % Neut # (Auto) 6.0 H (1.4-5.7) K/uL Lymph # (Auto) 1.3 (0.6-2.4) K/uL [place] # (Auto) 0.7 (0.0-0.8) K/uL Eos # (Auto) 0.0 (0.0-0.7) K/uL Baso # (Auto) 0.0 (0.0-0.1) K/uL Sodium (136-145) mmol/L Potassium (3.5-5.1) mmol/L Chloride (98-107) mmol/L Carbon Dioxide (21.0-32.0) mmol/L BUN (7.0-18.0) mg/dL Creatinine (0.6-1.0) mg/dL Est Cr Clr Drug Dosing mL/min Estimated GFR (MDRD) ml/min Glucose (74-106) mg/dL POC Glucose 129 H 175 H (60-110) mg/dL Calcium (8.5-10.1) mg/dL 05/14/19 05/14/19 Range/Units 05:35 06:31 WBC (4.0-11.0) K/uL RBC (4.30-5.90) M/uL Hgb (12.0-16.0) g/dL Hct (36.0-46.0) % MCV (80.0-98.0) fL MCH (27.0-32.0) pg MCHC (31.0-37.0) g/dL RDW Std Deviation (28.0-62.0) fl RDW Coeff of [place] (11.0-15.0) % Plt Count (150-400) K/uL MPV (7.40-12.00) fL Neut % (Auto) (48.0-80.0) % Lymph % (Auto) (16.0-40.0) % [place] % (Auto) (0.0-15.0) % Eos % (Auto) (0.0-7.0) % Baso % (Auto) (0.0-1.5) % Neut # (Auto) (1.4-5.7) K/uL Lymph # (Auto) (0.6-2.4) K/uL [place] # (Auto) (0.0-0.8) K/uL Eos # (Auto) (0.0-0.7) K/uL Baso # (Auto) (0.0-0.1) K/uL Sodium 136 (136-145) mmol/L Potassium 3.6 (3.5-5.1) mmol/L Chloride 100 (98-107) mmol/L Carbon Dioxide 23.9 (21.0-32.0) mmol/L BUN 11 (7.0-18.0) mg/dL Creatinine 0.9 (0.6-1.0) mg/dL Est Cr Clr Drug Dosing 36.14 mL/min Estimated GFR (MDRD) 59.5 ml/min Glucose 110 H (74-106) mg/dL POC Glucose 131 H (60-110) mg/dL Calcium 8.3 L (8.5-10.1) mg/dL Antoine Results Last 24 Hours: Microbiology 05/13/19 06:44 Aerobic Blood Culture - Preliminary Blood - Venous - Lab Draw NO GROWTH AFTER 1 DAY Anaerobic Blood Culture - Preliminary NO GROWTH AFTER 1 DAY 05/13/19 06:30 Aerobic Blood Culture - Preliminary Blood - Venous NO GROWTH AFTER 1 DAY Anaerobic Blood Culture - Preliminary NO GROWTH AFTER 1 DAY 05/13/19 15:00 C. difficile Antigen & Toxins A,B - Final Stool / Feces Med Orders - Current: Current Medications Acetaminophen (Tylenol) 650 mg PO Q4H PRN PRN Reason: Pain Last Admin: 05/14/19 06:14 Dose: 650 mg Gabapentin (Neurontin) 100 mg PO BID [facility] Last Admin: 05/14/19 08:41 Dose: 100 mg Heparin Sodium (Porcine) (Heparin Sodium) 5,000 units SUBCUT Q8H [facility] Last Admin: 05/14/19 08:41 Dose: 5,000 units Cefepime HCl 1 gm/ Premix 50 mls @ 100 mls/hr IV Q8H [facility] Last Admin: 05/14/19 06:08 Dose: 100 mls/hr Sodium Chloride (Normal Saline) 1,000 mls @ 100 mls/hr IV ASDIRECTED [facility] Last Admin: 05/14/19 08:47 Dose: 100 mls/hr Vancomycin HCl 1 gm/ Sodium (Chloride) 250 mls @ 166.667 mls/hr IV Q24H [facility] Last Admin: 05/14/19 08:41 Dose: 166.667 mls/hr Ibuprofen (Motrin) 800 mg PO Q6H PRN PRN Reason: Pain Insulin Aspart (Novolog) 0 unit SUBCUT TIDAC [facility]; Protocol Last Admin: 05/14/19 07:01 Dose: Not Given Ondansetron HCl (Zofran) 4 mg IVPUSH Q4H PRN PRN Reason: Nausea Last Admin: 05/14/19 08:41 Dose: 4 mg Promethazine HCl (Phenergan) 25 mg IM Q6H PRN PRN Reason: Nausea Vancomycin HCl (Pharmacy To Dose - Vancomycin) 1 dose .XX ASDIRECTED [facility] Vancomycin HCl (Vancomycin) 125 mg PO QID [facility] Stop: 05/23/19 18:01 Last Admin: 05/14/19 06:08 Dose: 125 mg Discontinued Medications Acetaminophen (Tylenol) 650 mg PO Q6H PRN PRN Reason: Pain Last Admin: 05/13/19 13:27 Dose: 650 mg Sodium Chloride (Normal Saline) 1,000 mls @ 999 mls/hr IV BOLUS ONE Stop: 05/13/19 05:48 Last Admin: 05/13/19 05:02 Dose: 999 mls/hr Cefepime HCl 1 gm/ Premix 50 mls @ 100 mls/hr IV ONETIME ONE Stop: 05/13/19 07:18 Last Admin: 05/13/19 07:09 Dose: 100 mls/hr Ondansetron HCl (Zofran) 4 mg IVPUSH ONETIME ONE Stop: 05/13/19 04:56 Last Admin: 05/13/19 05:02 Dose: 4 mg - Exam General: Alert, Oriented, Cooperative, No Acute Distress Lungs: Clear to Auscultation, Normal Respiratory Effort Cardiovascular: Regular Rate, Regular Rhythm GI/Abdominal Exam: Normal Bowel Sounds, Soft, Non-Tender Extremities: Normal Inspection, Normal Range of Motion, Non-Tender, No Pedal Edema Wound/Incisions: Healing Well Neurological: No New Focal Deficit Psy/Mental Status: Alert, Normal Affect, Normal Mood Sepsis Event Note - Evaluation Sepsis Screening Result: No Definite Risk - Focused Exam Vital Signs: Vital Signs Temp Pulse Resp BP Pulse Ox 05/14/19 07:15 97.6 F 95 16 138/67 94 L 05/14/19 04:00 98.1 F 89 16 131/67 91 L 05/14/19 00:00 97.4 F 94 16 141/66 H 90 L Date Exam was Performed: 05/14/19 Time Exam was Performed: 13:22 - Problem List & Annotations (1) Complicated UTI (urinary tract infection) SNOMED Code(s): 46064815 Code(s): N39.0 - URINARY TRACT INFECTION, SITE NOT SPECIFIED Status: Acute Current Visit: Yes (2) History of colon cancer SNOMED Code(s): 680439417 Code(s): Z85.038 - PERSONAL HISTORY OF MALIGNANT NEOPLASM OF LARGE INTESTINE Status: Acute Current Visit: No - Problem List Review Problem List Initiated/Reviewed/Updated: Yes - Plan Plan:: 83 yo female admitted for nausea and vomiting with possible UTI and gastroenteritis. 1. UTI: - Continue Vancomycin and Cefepime today. De-escalate when cultures return - Dr. Aguilar is coming in today to discuss possible stent replacement. Radha is unsure and is considering possible palliative measures vs surgical intervention. - BC and UC pending 2. Nausea/vomiting: - Improved. Continue to monitor, Zofran PRN VTE prophylaxis: Heparin, on hold for possible surgical procedure tomorrow. Dispo: 2 days Code status: DNR/DNI
[2019-05-15] MEDS: Cefepime 1 GM in Premix Bag 1 BAG IV SCH ×3 (06:21→22:37)
[2019-05-15] MEDS: Vancomycin 125 MG Cap PO SCH ×4 (06:21→23:32)
[2019-05-15] MEDS: Acetaminophen 325 MG Tab PO PRN ×4 (06:26→23:32)
[2019-05-15] MEDS: Insulin Aspart 100 Units/ML 3 ML Pen SUBCUT SCH ×3 (08:26→18:36)
--- NOTE | 2019-05-15 08:52 | PCM.PN ---
- General Info Date of Service: 05/15/19 Admission Dx/Problem (Free Text): Admission Diagnosis/Problem Admission Diagnosis/Problem Urinary tract infection Subjective Update: Continues to improve slowly, have 3 bowel movements overnight, most incontinent. Denies chest pain or SOB. Not eating or drinking much. No abdominal pain. Would like to speak to Hospice today regarding palliative care/ Hospice. Functional Status: Reports: Pain Controlled, Ambulating, Urinating. Denies: Tolerating Diet - Review of Systems General: Reports: Weakness, Malaise Pulmonary: Reports: No Symptoms. Denies: Shortness of Breath Cardiovascular: Reports: No Symptoms. Denies: Chest Pain Gastrointestinal: Reports: Decreased Appetite, Diarrhea (improving), Nausea. Denies: Abdominal Pain, Vomiting Genitourinary: Reports: No Symptoms. Denies: Dysuria, Frequency, Burning Skin: Reports: No Symptoms Neurological: Reports: No Symptoms Psychiatric: Reports: No Symptoms - Patient Data Vitals - Most Recent: Last Vital Signs Temp 98 F 05/15/19 07:15 Pulse 96 05/15/19 07:15 Resp 16 05/15/19 07:15 BP 139/64 05/15/19 07:15 Pulse Ox 93 L 05/15/19 07:15 Weight - Most Recent: 61.235 kg I&O - Last 24 Hours: Intake & Output 05/14/19 05/15/19 05/15/19 22:59 06:59 14:59 Intake Total 1904 1353 Output Total 500 900 Balance 1404 453 Lab Results Last 24 Hours: Laboratory Results - last 24 hr 05/14/19 05/14/19 05/15/19 Range/Units 11:59 16:37 08:12 POC Glucose 133 H 155 H 118 H (60-110) mg/dL Antoine Results Last 24 Hours: Microbiology 05/13/19 05:50 Urine Culture - Final Urine, Bladder MIXED JACOB >100,000 CFU/ML 05/13/19 06:44 Aerobic Blood Culture - Preliminary Blood - Venous - Lab Draw NO GROWTH AFTER 2 DAYS Anaerobic Blood Culture - Preliminary NO GROWTH AFTER 2 DAYS 05/13/19 06:30 Aerobic Blood Culture - Preliminary Blood - Venous NO GROWTH AFTER 2 DAYS Anaerobic Blood Culture - Preliminary NO GROWTH AFTER 2 DAYS Med Orders - Current: Current Medications Acetaminophen (Tylenol) 650 mg PO Q4H PRN PRN Reason: Pain Last Admin: 05/15/19 06:26 Dose: 650 mg Acidophilus/Pectin (Acidophilus/Pectin, Udell) 1 tab PO DAILY [facility] Gabapentin (Neurontin) 100 mg PO BID [facility] Last Admin: 05/14/19 20:40 Dose: 100 mg Cefepime HCl 1 gm/ Premix 50 mls @ 100 mls/hr IV Q8H [facility] Last Admin: 05/15/19 06:21 Dose: 100 mls/hr Sodium Chloride (Normal Saline) 1,000 mls @ 100 mls/hr IV ASDIRECTED [facility] Last Admin: 05/14/19 22:15 Dose: 100 mls/hr Ibuprofen (Motrin) 800 mg PO Q6H PRN PRN Reason: Pain Insulin Aspart (Novolog) 0 unit SUBCUT TIDAC [facility]; Protocol Last Admin: 05/15/19 08:26 Dose: Not Given Ondansetron HCl (Zofran) 4 mg IVPUSH Q4H PRN PRN Reason: Nausea Last Admin: 05/14/19 22:16 Dose: 4 mg Promethazine HCl (Phenergan) 25 mg IM Q6H PRN PRN Reason: Nausea Vancomycin HCl (Vancomycin) 125 mg PO QID [facility] Stop: 05/23/19 18:01 Last Admin: 05/15/19 06:21 Dose: 125 mg Discontinued Medications Acetaminophen (Tylenol) 650 mg PO Q6H PRN PRN Reason: Pain Last Admin: 05/13/19 13:27 Dose: 650 mg Heparin Sodium (Porcine) (Heparin Sodium) 5,000 units SUBCUT Q8H [facility] Last Admin: 05/14/19 08:41 Dose: 5,000 units Sodium Chloride (Normal Saline) 1,000 mls @ 999 mls/hr IV BOLUS ONE Stop: 05/13/19 05:48 Last Admin: 05/13/19 05:02 Dose: 999 mls/hr Cefepime HCl 1 gm/ Premix 50 mls @ 100 mls/hr IV ONETIME ONE Stop: 05/13/19 07:18 Last Admin: 05/13/19 07:09 Dose: 100 mls/hr Vancomycin HCl 1 gm/ Sodium (Chloride) 250 mls @ 166.667 mls/hr IV Q24H [facility] Last Admin: 05/14/19 08:41 Dose: 166.667 mls/hr Ondansetron HCl (Zofran) 4 mg IVPUSH ONETIME ONE Stop: 05/13/19 04:56 Last Admin: 05/13/19 05:02 Dose: 4 mg Vancomycin HCl (Pharmacy To Dose - Vancomycin) 1 dose .XX ASDIRECTED SHERIE - Exam General: Alert, Oriented, Cooperative, No Acute Distress Lungs: Clear to Auscultation, Normal Respiratory Effort Cardiovascular: Regular Rate, Regular Rhythm GI/Abdominal Exam: Normal Bowel Sounds, Soft, Non-Tender, No Distention Extremities: Normal Inspection, Normal Range of Motion, Non-Tender, No Pedal Edema Neurological: No New Focal Deficit Psy/Mental Status: Alert, Normal Affect, Normal Mood Sepsis Event Note - Evaluation Sepsis Screening Result: No Definite Risk - Focused Exam Vital Signs: Vital Signs Temp Pulse Resp BP Pulse Ox 05/15/19 07:15 98 F 96 16 139/64 93 L 05/15/19 03:00 97.9 F 100 16 135/78 93 L Date Exam was Performed: 05/15/19 Time Exam was Performed: 09:54 - Problem List & Annotations (1) Complicated UTI (urinary tract infection) SNOMED Code(s): 85976619 Code(s): N39.0 - URINARY TRACT INFECTION, SITE NOT SPECIFIED Status: Acute Current Visit: Yes (2) History of colon cancer SNOMED Code(s): 915691259 Code(s): Z85.038 - PERSONAL HISTORY OF MALIGNANT NEOPLASM OF LARGE INTESTINE Status: Acute Current Visit: No (3) C. difficile diarrhea SNOMED Code(s): 2397565654970 Code(s): A04.72 - ENTEROCOLITIS D/T CLOSTRIDIUM DIFFICILE, NOT SPCF RECUR Status: Acute Current Visit: Yes - Problem List Review Problem List Initiated/Reviewed/Updated: Yes - My Orders Last 24 Hours: My Active Orders 05/15/19 08:17 BMP [BASIC METABOLIC PANEL,BMP] [CHEM] Routine CBC WITH AUTO DIFF [HEME] Routine MAGNESIUM [CHEM] Routine 05/15/19 09:00 Acidophilus/Pectin, Udell 1 tab PO DAILY - Plan Plan:: 83 yo female admitted for nausea and vomiting with possible UTI and gastroenteritis. 1. UTI: - Continue Cefepime today. DC Vancomycin, urine culture returned as Mixed jacob >100,000 - Dr. Aguilar felt she is not a surgical candidate, Rahda agrees. Will speak with Hospice/palliative care today - BC negative x 1 day 2. Nausea/vomiting: - Improved. Continue to monitor, Zofran PRN - Still has very little appetite. 3. Cdiff diarrhea: - Continue Vancomycin PO - Stools improving, nausea continues very little appetite. - Add probiotic - Supplement Magnesium and potassium today, recheck in am. VTE prophylaxis: Heparin Dispo: in am Code status: DNR/DNI
[2019-05-15 09:14] LABS: BLOOD UREA NITROGEN,BUN 8 mg/dL (7.0-18.0); CARBON DIOXIDE,CO2 22.9 mmol/L (21.0-32.0); CHLORIDE,CL 102 mmol/L (98-107); GLUCOSE RANDOM 122 mg/dL (74-106); POTASSIUM,K 3.3 mmol/L (3.5-5.1); SODIUM,NA 136 mmol/L (136-145)
[2019-05-15] MEDS: Sodium Chloride 0.9% 1,000 ML IV SCH ×2 (09:19→23:36)
[2019-05-15] MEDS: Heparin Sodium 5,000 Units/ML Vial SUBCUT SCH ×2 (09:29→22:36)
[2019-05-15] MEDS: Acidophilus with Citrus Pectin Tab PO SCH (09:29)
[2019-05-15] MEDS: Gabapentin 100 MG Cap PO SCH ×2 (09:29→22:36)
[2019-05-15] MEDS ORDERED: SODIUM CHLORIDE 0.9% IV ONE (09:35)
[2019-05-15] MEDS ORDERED: POTASSIUM CHLORIDE IV ONE (09:35)
[2019-05-15] MEDS ORDERED: MAGNESIUM SULFATE IV ONE (09:35)
[2019-05-15] MEDS ORDERED: Calcium Carbonate 500 MG Tab.Chew PO PRN (22:10)
[2019-05-16] MEDS: Vancomycin 125 MG Cap PO SCH ×2 (05:59→11:39)
[2019-05-16] MEDS: Cefepime 1 GM in Premix Bag 1 BAG IV SCH (06:00)
[2019-05-16] MEDS: Acetaminophen 325 MG Tab PO PRN (06:31)
[2019-05-16 06:37] LABS: BLOOD UREA NITROGEN,BUN 8 mg/dL (7.0-18.0); CARBON DIOXIDE,CO2 23.1 mmol/L (21.0-32.0); CHLORIDE,CL 104 mmol/L (98-107); GLUCOSE RANDOM 120 mg/dL (74-106); POTASSIUM,K 3.9 mmol/L (3.5-5.1); SODIUM,NA 137 mmol/L (136-145)
[2019-05-16] MEDS: Insulin Aspart 100 Units/ML 3 ML Pen SUBCUT SCH ×2 (07:14→11:39)
[2019-05-16 07:29] VITALS: PULSE 97
[2019-05-16] MEDS: Gabapentin 100 MG Cap PO SCH (09:23)
[2019-05-16] MEDS: Acidophilus with Citrus Pectin Tab PO SCH (09:23)
[2019-05-16] MEDS: Heparin Sodium 5,000 Units/ML Vial SUBCUT SCH (09:23)
--- NOTE | 2019-05-16 10:15 | PCM.DCSUM1 ---
Discharge Summary - Hospital Course Brief History: 83 yo female with pmh of recurrent metastatic colon cancer. Patient is being treated palliatively. She had a right ureteral stent placed in October for what was suspect to be obstruction due to metastatic disease. She presented to the ED due to one day complaint of nausea, vomiting, and diarrhea. She denies any fever or flank pain. CT scan of the abdomen reported new peritoneal disease, no change in severe right hydroneprhosis or stent. There is new 2cm mass near the right uterovesicular junction. Diagnosis: Stroke: No - Discharge Data Discharge Date: 05/16/19 Discharge Disposition: Home, Self-Care 01 Condition: Stable - Referral to Home Health Primary Care Physician: Jimmie Giraldo MD - Discharge Diagnosis/Problem(s) (1) Complicated UTI (urinary tract infection) SNOMED Code(s): 41319659 ICD Code: N39.0 - URINARY TRACT INFECTION, SITE NOT SPECIFIED Status: Acute Current Visit: Yes (2) History of colon cancer SNOMED Code(s): 309775949 ICD Code: Z85.038 - PERSONAL HISTORY OF MALIGNANT NEOPLASM OF LARGE INTESTINE Status: Acute Current Visit: No (3) C. difficile diarrhea SNOMED Code(s): 3847229156714 ICD Code: A04.72 - ENTEROCOLITIS D/T CLOSTRIDIUM DIFFICILE, NOT SPCF RECUR Status: Acute Current Visit: Yes - Patient Summary/Data Consults: Consultations 05/15/19 08:47 Consult to Hospice [CONS] Routine - Patient Instructions Diet: GI Soft/Low Residue/Low Fiber Activity: As Tolerated, No Strenuous Activities, Rest and Relax Today Driving: Do Not Drive Showering/Bathing: May Shower Notify Provider of: Fever, Increased Pain, Swelling and Redness, Drainage, Nausea and/or Vomiting Other/Special Instructions: Hospice to contact tomorrow regarding entering Hospice - Discharge Plan *PRESCRIPTION DRUG MONITORING PROGRAM REVIEWED*: Not Applicable *COPY OF PRESCRIPTION DRUG MONITORING REPORT IN PATIENT ZAKIA: Not Applicable Prescriptions/Med Rec: Cephalexin [Keflex] 500 mg PO BID #14 capsule Ondansetron [Zofran ODT] 4 mg PO Q6H PRN #30 tab.dis PRN Reason: Nausea Vancomycin 125 mg PO QID #30 cap Home Medications: Home Meds Cholecalciferol (Vitamin D3) [Vitamin D3] 1,000 units CHEW DAILY 09/10/16 [ History] Cyanocobalamin (Vitamin B12) [Vitamin B12] 500 mcg PO DAILY 09/10/16 [History] Losartan Potassium 25 mg PO QAM 09/10/16 [History] atorvaSTATin Calcium [Atorvastatin Calcium] 10 mg PO BEDTIME 09/10/16 [History] metFORMIN HCl [Metformin HCl] 500 mg PO BEDTIME 09/10/16 [History] Ascorbic Acid [Vitamin C] 1,000 mg PO DAILY 12/30/16 [History] Gabapentin [Neurontin] 100 mg PO BID 12/30/16 [History] Aspirin [Halfprin] 81 mg PO DAILY 05/13/19 [History] Acetaminophen [Tylenol] 650 mg PO Q4H PRN tablet 05/16/19 [Rx] Cephalexin [Keflex] 500 mg PO BID #14 capsule 05/16/19 [Rx] Ondansetron [Zofran ODT] 4 mg PO Q6H PRN #30 tab.dis 05/16/19 [Rx] Vancomycin 125 mg PO QID #30 cap 05/16/19 [Rx] Oxygen Therapy Mode: Room Air Patient Handouts: Urinary Tract Infection, Adult, Apte-ke-Aueh, Cephalexin tablets or capsules, Vancomycin oral solution Referrals: [facility] [Outside] Jimmie Giraldo MD [Primary Care Provider] - 05/23/19 10:00 am - Discharge Summary/Plan Comment DC Time >30 min.: No Discharge Summary/Plan Comment: Admitting Diagnoses: UTI Diarrhea Dehydration Discharge Diagnoses: UTI Diarrhea Dehydration Other PMH: Metastatic colon ca- palliative treatment Radha was admitted and treated for complicated UTI with Cefepime and Vancomycin. She was noted to have mass at [facility] site. Dr Aguilar notified of patient admission and spoke with patient regarding possibility of stent replacement. They decided against surgery. Hospice/palliatve care consulted, she is undecided if she wants that now, but is very understanding of her prognosis. She thinks she feels too good to be on Hospice. We counseled her on wanting to get on board with Hospice sooner rather than later. Discussed this with family today and they agree. They also wanted resource information for private care givers and possible [facility] application. Diarrhea was tested during stay, she wsa noted to be postive for Cdiff antigen with significant diarrhea, Vancomyin PO was started and within two days stools were nearly back to normal. SHe is intermittently nauseated, zofran helps. SHe denies any other concerns today. UC returned mixed jacob. She will be discharged home today with resources for home care as well as Hospice reaching out tomorrow. She will continue Vancomycin for 7 more days as well s Kelfelx for 7 more days for UTI. Follow up with PCP in 1 week or return to ED or clinic sooner if concerns should arise. - Patient Data Vitals - Most Recent: Last Vital Signs Temp 98.6 F 05/16/19 07:27 Pulse 97 05/16/19 07:27 Resp 19 05/16/19 07:27 BP 135/65 05/16/19 07:27 Pulse Ox 92 L 05/16/19 07:27 Weight - Most Recent: 61.235 kg I&O - Last 24 hours: Intake & Output 05/15/19 05/16/19 05/16/19 22:59 06:59 14:59 Intake Total 1651 2282 Output Total 600 200 Balance 1651 1682 -200 Lab Results - Last 24 hrs: Laboratory Results - last 24 hr 05/15/19 05/15/19 05/16/19 Range/Units 11:46 18:10 06:10 WBC 10.09 (4.0-11.0) K/uL RBC 4.09 L (4.30-5.90) M/uL Hgb 11.1 L (12.0-16.0) g/dL Hct 35.0 L (36.0-46.0) % MCV 85.6 (80.0-98.0) fL MCH 27.1 (27.0-32.0) pg MCHC 31.7 (31.0-37.0) g/dL RDW Std Deviation 48.8 (28.0-62.0) fl RDW Coeff of Tiara 16 H (11.0-15.0) % Plt Count 569 H (150-400) K/uL MPV 8.50 (7.40-12.00) fL Neut % (Auto) 72.1 (48.0-80.0) % Lymph % (Auto) 19.2 (16.0-40.0) % [place] % (Auto) 8.2 (0.0-15.0) % Eos % (Auto) 0.4 (0.0-7.0) % Baso % (Auto) 0.1 (0.0-1.5) % Neut # (Auto) 7.3 H (1.4-5.7) K/uL Lymph # (Auto) 1.9 (0.6-2.4) K/uL [place] # (Auto) 0.8 (0.0-0.8) K/uL Eos # (Auto) 0.0 (0.0-0.7) K/uL Baso # (Auto) 0.0 (0.0-0.1) K/uL Nucleated RBC % 0.0 /100WBC Nucleated RBCs # 0 K/uL Sodium (136-145) mmol/L Potassium (3.5-5.1) mmol/L Chloride (98-107) mmol/L Carbon Dioxide (21.0-32.0) mmol/L BUN (7.0-18.0) mg/dL Creatinine (0.6-1.0) mg/dL Est Cr Clr Drug Dosing mL/min Estimated GFR (MDRD) ml/min Glucose (74-106) mg/dL POC Glucose 160 H 142 H (60-110) mg/dL Calcium (8.5-10.1) mg/dL Magnesium (1.8-2.4) mg/dL 05/16/19 05/16/19 Range/Units 06:10 06:11 WBC (4.0-11.0) K/uL RBC (4.30-5.90) M/uL Hgb (12.0-16.0) g/dL Hct (36.0-46.0) % MCV (80.0-98.0) fL MCH (27.0-32.0) pg MCHC (31.0-37.0) g/dL RDW Std Deviation (28.0-62.0) fl RDW Coeff of Tiara (11.0-15.0) % Plt Count (150-400) K/uL MPV (7.40-12.00) fL Neut % (Auto) (48.0-80.0) % Lymph % (Auto) (16.0-40.0) % [place] % (Auto) (0.0-15.0) % Eos % (Auto) (0.0-7.0) % Baso % (Auto) (0.0-1.5) % Neut # (Auto) (1.4-5.7) K/uL Lymph # (Auto) (0.6-2.4) K/uL [place] # (Auto) (0.0-0.8) K/uL Eos # (Auto) (0.0-0.7) K/uL Baso # (Auto) (0.0-0.1) K/uL Nucleated RBC % /100WBC Nucleated RBCs # K/uL Sodium 137 (136-145) mmol/L Potassium 3.9 (3.5-5.1) mmol/L Chloride 104 (98-107) mmol/L Carbon Dioxide 23.1 (21.0-32.0) mmol/L BUN 8 (7.0-18.0) mg/dL Creatinine 0.7 (0.6-1.0) mg/dL Est Cr Clr Drug Dosing 45.63 mL/min Estimated GFR (MDRD) > 60.0 ml/min Glucose 120 H (74-106) mg/dL POC Glucose 129 H (60-110) mg/dL Calcium 8.3 L (8.5-10.1) mg/dL Magnesium 2.1 (1.8-2.4) mg/dL JOHAN Results - Last 24 hrs: Microbiology 05/13/19 15:00 Clostridioides difficile (PCR) - Final Stool / Feces 05/13/19 06:44 Aerobic Blood Culture - Preliminary Blood - Venous - Lab Draw NO GROWTH AFTER 3 DAYS Anaerobic Blood Culture - Preliminary NO GROWTH AFTER 3 DAYS 05/13/19 06:30 Aerobic Blood Culture - Preliminary Blood - Venous NO GROWTH AFTER 3 DAYS Anaerobic Blood Culture - Preliminary NO GROWTH AFTER 3 DAYS 05/13/19 18:45 Shiga Toxin I & II - Final Stool / Feces 05/13/19 05:50 Urine Culture - Final Urine, Bladder MIXED JACOB >100,000 CFU/ML Med Orders - Current: Current Medications Acetaminophen (Tylenol) 650 mg PO Q4H PRN PRN Reason: Pain Last Admin: 05/16/19 06:31 Dose: 650 mg Acidophilus/Pectin (Acidophilus/Pectin, Daniels) 1 tab PO DAILY [facility] Last Admin: 05/16/19 09:23 Dose: 1 tab Calcium Carbonate/Glycine (Tums) 1,000 mg PO TID PRN PRN Reason: Indigestion Last Admin: 05/15/19 22:36 Dose: 1,000 mg Gabapentin (Neurontin) 100 mg PO BID [facility] Last Admin: 05/16/19 09:23 Dose: 100 mg Heparin Sodium (Porcine) (Heparin Sodium) 5,000 units SUBCUT Q12H [facility] Last Admin: 05/16/19 09:23 Dose: 5,000 units Cefepime HCl 1 gm/ Premix 50 mls @ 100 mls/hr IV Q8H [facility] Last Admin: 05/16/19 06:00 Dose: 100 mls/hr Sodium Chloride (Normal Saline) 1,000 mls @ 100 mls/hr IV ASDIRECTED [facility] Last Admin: 05/15/19 23:36 Dose: 100 mls/hr Ibuprofen (Motrin) 800 mg PO Q6H PRN PRN Reason: Pain Insulin Aspart (Novolog) 0 unit SUBCUT TIDAC [facility]; Protocol Last Admin: 05/16/19 07:14 Dose: Not Given Ondansetron HCl (Zofran) 4 mg IVPUSH Q4H PRN PRN Reason: Nausea Last Admin: 05/14/19 22:16 Dose: 4 mg Promethazine HCl (Phenergan) 25 mg IM Q6H PRN PRN Reason: Nausea Vancomycin HCl (Vancomycin) 125 mg PO QID [facility] Stop: 05/23/19 18:01 Last Admin: 05/16/19 05:59 Dose: 125 mg Discontinued Medications Acetaminophen (Tylenol) 650 mg PO Q6H PRN PRN Reason: Pain Last Admin: 05/13/19 13:27 Dose: 650 mg Heparin Sodium (Porcine) (Heparin Sodium) 5,000 units SUBCUT Q8H [facility] Last Admin: 05/14/19 08:41 Dose: 5,000 units Sodium Chloride (Normal Saline) 1,000 mls @ 999 mls/hr IV BOLUS ONE Stop: 05/13/19 05:48 Last Admin: 05/13/19 05:02 Dose: 999 mls/hr Cefepime HCl 1 gm/ Premix 50 mls @ 100 mls/hr IV ONETIME ONE Stop: 05/13/19 07:18 Last Admin: 05/13/19 07:09 Dose: 100 mls/hr Vancomycin HCl 1 gm/ Sodium (Chloride) 250 mls @ 166.667 mls/hr IV Q24H [facility] Last Admin: 05/14/19 08:41 Dose: 166.667 mls/hr Potassium Chloride 40 meq/Magnesium Sulfate 4 gm/ Sodium Chloride 508 mls @ 125 mls/hr IV ONETIME ONE Stop: 05/15/19 13:38 Last Admin: 05/15/19 10:25 Dose: 125 mls/hr Ondansetron HCl (Zofran) 4 mg IVPUSH ONETIME ONE Stop: 05/13/19 04:56 Last Admin: 05/13/19 05:02 Dose: 4 mg Vancomycin HCl (Pharmacy To Dose - Vancomycin) 1 dose .XX ASDIRECTED [facility]
[2019-05-16 13:10] VITALS: BP 139/70
== END 2019-05-16 13:00 | disposition home or self-care (01) | DRG 690 ==
LOC: MW.ED 04:29 → MW.MS 07:02 → OBSVTOIN 14:17 → MW.MS 17:00
PROVIDERS: ADMIT Internal Medicine; ATTEND Internal Medicine
DX: R11.2 Nausea with vomiting, unspecified (principal); E78.00 Pure hypercholesterolemia, unspecified; I10 Essential (primary) hypertension; Z87.11 Personal history of peptic ulcer disease; N39.0 Urinary tract infection, site not specified; Z93.6 Other artificial openings of urinary tract status; A04.72 Enterocolitis due to Clostridium difficile, not specified as recurrent; K52.9 Noninfective gastroenteritis and colitis, unspecified; Z95.828 Presence of other vascular implants and grafts; Z66 Do not resuscitate; Z51.5 Encounter for palliative care; N13.1 Hydronephrosis with ureteral stricture, not elsewhere classified; C79.9 Secondary malignant neoplasm of unspecified site; E11.9 Type 2 diabetes mellitus without complications; E86.0 Dehydration; Z85.038 Personal history of other malignant neoplasm of large intestine; Z79.82 Long term (current) use of aspirin; Z79.899 Other long term (current) drug therapy; Z79.84 Long term (current) use of oral hypoglycemic drugs; Z98.49 Cataract extraction status, unspecified eye; Z90.49 Acquired absence of other specified parts of digestive tract; Z90.710 Acquired absence of both cervix and uterus
CPT/HCPCS: 36415; 74176; 80053; 81001; 82962; 83605; 85025; 87040 ×2; 87086; 96361; 96365; 96375; 99285; A9270 ×2; J0692; J1644; J2405 ×2; J3370; J7030 ×2; J7050; 80048; 83735; 87045; 87046; 87324; 87493; 87899; 99284; J1815-GY; J3475; J3480; J7040

== ENCOUNTER 2019-05-21 16:16 | Inpatient (IN) | payer MEDICARE, BC ==
[2019-05-21] MEDS ORDERED: Ondansetron 4 MG Tab.DIS PO PRN ×2 (16:20→17:45)
[2019-05-21] MEDS ORDERED: Acetaminophen/Codeine 300-30 MG Tab PO PRN (16:20)
[2019-05-21] MEDS ORDERED: Acetaminophen 325 MG Tab PO PRN (16:20)
[2019-05-21] MEDS ORDERED: Hyoscyamine 0.125 MG Tab.SL SL PRN (16:20)
[2019-05-21] MEDS ORDERED: Haloperidol 1 MG Tab PO PRN (16:25)
[2019-05-21] MEDS ORDERED: metFORMIN 500 MG Tab PO SCH (17:30)
[2019-05-21] MEDS: Vancomycin 125 MG Cap PO SCH (17:46)
[2019-05-21] MEDS: Morphine Oral Concentrate 20 MG/ML 30 ML Bottle SL PRN ×2 (17:53→22:27)
[2019-05-21] MEDS ORDERED: Vancomycin 125 MG Cap PO SCH (18:00)
[2019-05-21] MEDS ORDERED: atorvaSTATin 10 MG Tab PO SCH (21:00)
[2019-05-21] MEDS: Cephalexin 500 MG Cap PO SCH (21:06)
[2019-05-21] MEDS: Gabapentin 300 MG Cap PO SCH (22:20)
[2019-05-22] MEDS: Vancomycin 125 MG Cap PO SCH ×3 (00:13→11:55)
[2019-05-22] MEDS: Gabapentin 300 MG Cap PO SCH ×2 (05:59→14:56)
[2019-05-22] MEDS: Morphine Oral Concentrate 20 MG/ML 30 ML Bottle SL PRN ×3 (08:46→15:39)
[2019-05-22] MEDS ORDERED: Losartan 50 MG Tab PO SCH (09:00)
[2019-05-22] MEDS ORDERED: Aspirin 81 MG Tab.Chew PO SCH (09:00)
[2019-05-22] MEDS: Cephalexin 500 MG Cap PO SCH (09:06)
[2019-05-22 11:31] VITALS: BP 136/77; PULSE 105
== END 2019-05-22 15:35 | disposition home or self-care (01) | DRG 951 ==
LOC: MW.MS 16:16 → UNDOADMIN 16:16
PROVIDERS: ADMIT Student in an Organized Health Care Education/Training Program; ATTEND Student in an Organized Health Care Education/Training Program
DX: Z51.5 Encounter for palliative care (principal); Z75.5 Holiday relief care
CPT/HCPCS: A9270-GY